=== PATIENT | male | born 1985 | race Caucasian/White ===

== ENCOUNTER 2023-02-08 13:19 | Emergency (ER) | payer BC, SELFPAY ==
[2023-02-08 13:22] VITALS: BP 134/99; PULSE 82; RESP 18; TEMP 36.6; O2SAT 100; BMI 35.8
--- NOTE | 2023-02-08 13:31 | ED_ITS ---
HPI - General Adult General Chief complaint: Eye Problems Stated complaint: LT EYE REDNESS Time Seen by Provider: 02/08/23 13:30 Source: patient Mode of arrival: walk-in History of Present Illness HPI narrative: patient here with a foreign body type sensation in his left eye. Patient states he was fine yesterday he did not work. 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 In either case he was fine yesterday but today when he woke up he feels like there might be a foreign body in his left eye. He does not have any itching he does not have purulent matter debris or discharge. Does not have any blurred vision or loss of vision. Does not have any pain in the eye. Related Data Home Medications Medication Instructions Recorded Confirmed No Known Home Medications 02/08/23 02/08/23 Allergies Allergy/AdvReac Type Severity Reaction Status Date / Time Sulfa (Sulfonamide AdvReac Intermediate Verified 02/08/23 13:22 Antibiotics) bactrim AdvReac Intermediate Uncoded 02/08/23 13:22 Exam Narrative Exam Narrative: awake alert appears in no distress. Overall inspection the eyes shows no scleral icterus or evidence of anemia or pallor. There is no injection of the conjunctiva. Extraocular muscles normal pupillary light response is normal lids and lashes are normal. periorbital tissues in the facial landmarks are otherwise completely normal. Constitutional Vital Signs, click to edit/add: Last Vital Signs Temp 98 F 02/08/23 13:22 Pulse 82 02/08/23 13:22 Resp 18 02/08/23 13:22 BP 134/99 H 02/08/23 13:22 Pulse Ox 100 02/08/23 13:22 O2 Del Method Room Air 02/08/23 13:22 Course Vital Signs Vital signs: Vital Signs Temperature 98 F 02/08/23 13:22 Pulse Rate 82 02/08/23 13:22 Respiratory Rate 18 02/08/23 13:22 Blood Pressure 134/99 H 02/08/23 13:22 Pulse Oximetry 100 02/08/23 13:22 Oxygen Delivery Method Room Air 02/08/23 13:22 Temperature 98 F 09/16/23 13:22 Pulse Rate 82 02/08/23 13:22 Respiratory Rate 18 02/08/23 13:22 Blood Pressure 134/99 H 02/08/23 13:22 Pulse Oximetry 100 02/08/23 13:22 Oxygen Delivery Method Room Air 02/08/23 13:22 Medical Decision Making MDM Narrative Medical decision making narrative: after instillation of tetracaine ophthalmic drops he had complete resolution of his foreign body sensation. The lids were doubly everted and I do not see a foreign body. A slit lamp examination was conducted after floor seen. There is no dye uptake of the cornea. We will irrigate the eye Discharge Plan Discharge Chief Complaint: Eye Problems Clinical Impression: Foreign body in conjunctival sac, left eye, initial encounter Patient Disposition: Home, Self-Care Time of Disposition Decision: 14:48 Prescriptions / Home Meds: No Action No Known Home Medications Additional Instructions: follow-up local supervisor counseling and guidance as needed Stand Alone Forms: Portal Instructions Referrals: JOEY RAWLS [Primary Care Provider] - 1 week
[2023-02-08] MEDS: TETRACAINE HCL 0.5% OP SOL 80 DROP/4 ML BOTTLE OP (13:41)
[2023-02-08] MEDS: FLUORESCEIN SODIUM 1 MG STRIP OP (13:43)
== END 2023-02-08 14:45 | disposition home or self-care (01) ==
PROVIDERS: Emergency Provider Emergency Medicine Emergency Medical Services; PCP Family Medicine
DX: T15.12XA Foreign body in conjunctival sac, left eye, initial encounter (principal)
CPT/HCPCS: 99283

== ENCOUNTER 2023-05-16 16:06 | Outpatient (OUT) | payer BC, SELFPAY ==
--- NOTE | 2023-05-16 | XR_ITS ---
The [address] [address] Patient Name: VILMA MARTINEZ MRN: [id number] date: 1985 Sex: M Assigned Patient Location: RAD Current Patient Location: [facility] Accession/Order Number: [id number] Exam Date: 05/16/2023 16:30 Report Date: 05/16/2023 18:08 At the request of: PANCHO SHER Procedure: XR chest 2V EXAM: Chest x-ray HISTORY: . cough . COMPARISON: None. TECHNIQUE: Total and lateral chest FINDINGS: Heart and vascularity are unremarkable. Lungs are free of focal infiltrates. No acute bony abnormality is appreciated. XR/XR chest 2V IMPRESSION: No acute heart or lung disease identified. Electronically authenticated by: ANABELLA VASQUEZ Date: 05/16/2023 18:08
== END 2023-05-16 16:07 | disposition home or self-care (01) ==
PROVIDERS: PCP Family Medicine; Visit Provider Nurse Practitioner
DX: R05.9 Cough, unspecified (principal); R06.2 Wheezing
CPT/HCPCS: 71046

== ENCOUNTER 2023-08-16 01:17 | Emergency (ER) | payer BC, SELFPAY ==
[2023-08-16 01:20] VITALS: BP 160/90; PULSE 93; RESP 16; TEMP 37; O2SAT 98; BMI 38.0
--- OUTSIDE RECORDS SUMMARY | 2023-08-16 01:23 | XMS_ITS | CCD ---
Author Organization [facility] Care Team Providers Care Data Integration Analyst Name Role Phone MarieNathalia figueroa Unavailable Ginger Gardner Unavailable MARCELLUS, DR REY Primary Care Unavailable MARKER, DR REN Admitting Unavailable MARKER, DR REN Attending Unavailable MARKER, DR REN Consulting Unavailable NILESH DELUCA Consulting Unavailable HOUSE, DR REY Primary Care Unavailable KRANTHI VYAS Admitting Unavailable KRANTHI VYAS Attending Unavailable KRANTHI VYAS Consulting Unavailable HODA DUNHAM Consulting Unavailable CAPRICE ANDERSON Consulting Unavailable Kalyani Gamble Unavailable Radha Lr Attending Unavailable AdelineRadha Attending Unavailable AdelineRadha mcconnell Attending Unavailable AdelineRadha mcconnell Attending Unavailable Allergies Allergy Classification Reported Allergen(s) Allergy Type Date of Onset Reaction(s) Facility (3 sources) Sulfamethoxazole / Trimethoprim Drug Allergy [facility] [employer] Other (2 sources) sulfaSALAzine Drug Allergy [facility] [employer] Other (1 source) Sulfamethoxazole / Trimethoprim Drug Allergy 01-25-20 17 [facility] Repository (1 source) Sulfonamides (Antibiotic) Drug allergy (disorder) 01-25-20 17 [facility] Repository (1 source) Substance with sulfonamide structure and antibacterial mechanism of action (substance) Drug allergy [facility] [employer] Other (1 source) Sulfonamides (Antibiotic); Translations: [sulfa drugs] Propensity to adverse reactions (disorder) [facility] Repository Medications Current Medications Medication Drug Class(es) Dates Sig (Normalized) Sig (Original) [id number] 200 actuat albuterol 0.09 mg/actuat metered dose inhaler (3 sources) beta2-Adrenergic Agonist Start: 04-22-2021 take 2 puff(s) by inhalation every four hours as needed Albuterol Sulfate HFA 108 (90 Base) MCG/ACT 2 puffs as needed Inhalation every 4 hrs Mar, Active Start: 02-24-2021 take 2 puff(s) by in halation four times daily as needed Albuterol Sulfate HFA 108 (90 Base) MCG/ACT 2 puffs Inhalation qid prn Feb, Not-Taking dextromethorphan hydrobromide 15 mg / guaiFENesin 400 mg / pseudoephedrine hydrochloride 60 mg oral tablet (1 source) alpha-Adrenergic Agonist, Uncompetitive K-httsjp-J-aspartate Receptor Antagonist, Sigma-1 Agonist Start: 04-22-2021 take 1 tablet by mouth every four hours Capmist DM 60-15-400 MG 1 tablet as needed Orally every 4 hours for 10 days Mar, Active Completed/Discontinued Medications Medication Drug Class(es) Dates Sig (Normalized) Sig (Original) predniSONE 20 mg oral tablet (2 sources) Start: 02-24-2021 take 1 tablet by mouth every twelve hours predniSONE 20 MG 1 tablet Orally bid for 5 day(s) Feb, Not-Taking Problems Active Problems Problem Classification Problem Date Documented Da te Episodic/Chronic Anxiety disorders (3 sources) Generalized anxiety disorder; Translations: [Generalized anxiety disorder] Chronic Other non-traumatic joint disorders (4 sources) Pain in left ankle and joints of left foot; Translations: [PAIN IN LEFT ANKLE] Onset: 03-26-2022 Episodic Other upper respiratory infections (3 sources) Acute pharyngitis, unspecified; Translations: [Acute upper respiratory infection, unspecified] Onset: 02-24-2021 Resolved: 02-24-2021 Episodic Substance-related disorders (1 source) Nicotine dependence, cigarettes, uncomplicated; Translations: [NICOTINE DEPEND CIGARETTES UNCOMP] Onset: 03-27-2022 Chronic Syncope (4 sources) Syncope and collapse; Translations: [SYNCOPE AND COLLAPSE] Onset: 06-01-2022 Episodic Past or Other Problems Problem Classification Problem Date Documented Da te Episodic/Chronic Chronic obstructive pulmonary disease and bronchiectasis (1 source) Bronchitis, not specified as acute or chronic; Translations: [Bronchitis J40] Onset: 02-24-2021 Resolved: 02-24-2021 Episodic Immunizations and screening for infectious disease (2 sources) Contact with and (suspected) exposure to other viral communicable diseases; Translations: [Contact with and (suspected) exposure to other viral communicable diseases Z20.828] Onset: 02-24-2021 Resolved: 04-22-2021 Episodic Viral infection (1 source) COVID-19 Onset: 04-22-2021 Resolved: 04-22-2021 Results Test Name Value Interpretation Reference Range Facility Ambulatory Visit Summaryon 0 06-02-2023 Ambulatory Visit Summary AV MARTINEZ :1985 Visit Date:06/02/2023 Ambulatory Visit Instructions Your Diagnosis BMI 38.0-38.9,adult Non-smoker Your Care Team Attending Physician - Radha Umaña Primary Care Physician - Radha Umaña Discharge Vitals Temperature (Tympanic) 37.0 ?C Heart Rate (Peripheral) 84 Respiratory Rate 18 Blood Pressure 132/78 Height 170 cm Height 67 in Weight 112.0 kg Weight 246.4 lb BMI 38.75 Allergies sulfa drugs (Hives) Problems Ongoing - Any problem that you are currently receiving treatment for. Bronchitis Cough Nasal congestion Well adult exam Wheezing on expiration Patient Survey You may receive a survey via text or e-mail asking about your office visit. Please share your experience with us by completing your survey. We appreciate your feedback and thank you for choosing us for your care. Normal [facility] Family Medicine Office/Clini c Noteon 06-02-2023 Family Medicine Office/Clinic Note HPI Staff Av is a 38 year old male presenting for acute sick visit NAHUM: 05/16/23 pt states he didn't complete his last few doses of antibiotics forgot about medicine. States he didn't really notice a difference. Respiratory C/O: Onset: Ongoing over a month Body aches: no Chest congestion: yes Chills: no Cough: yes Sputum production: yes morning green/clear Sore throat: Ear complaints: no Eye itching/watering: no Fever: no had one yesterday morning Headache: no Nasal congestion: yes Nasal discharge: yes Poor appetite: no Reduced activity: no Sinus pain/pressure: no Sneezing: yes Wheezing: no Ill contacts: no Remedies tried: Thera-flu, Tylenol Questions/Concerns: History of Present Illness pt presents with cough, chills, fever, body aches Review of Systems PHQ Score Initial Depression Screen Score: 0 SCORE ROS - Provider Constitutional: no fever, no chills, no sweats, no fatigue Respiratory: no shortness of breath, no cough, no orthopnea, no wheezing. Cardiovascular: no chest pain, no palpitations, no edema. Neurologic: no headache, no dizziness, no numbness, no weakness. Physical Exam Vitals & Measurements T: 37.0 ?C(Tympanic) HR: 84(Peripheral) RR: 18 BP: 132/78 SpO2: 94% HT: 67 in HT: 170 cm WT: 112.0 kg WT: 246.4 lb BMI: 38.75 General: alert, no acute distress ENMT: oral mucosa moist, no pharyngeal erythema or exudate Cardiovascular: regular rate and rhythm, normal peripheral perfusion Respiratory: Lungs CTA, respirations non labored Extremities: no deformity, no trauma Neurological: oriented x 4, LOC appropriate for age, CN II-XII intact, motor strength equal & normal bilaterally, speech normal Assessment/Plan 1. Bronchitis (J40: Bronchitis, not specified as acute or chronic) cough, congestion, body aches. will send z pack and medrol dose pack 2. Cough (R05.9: Cough, unspecified) will send albuterol inhaler Ordered: fluticasone, = 2 puff(s), Inhalation, BID, # 12 gram, Refills(s) 0, Pharmacy: [id number], 170.5, cm, 05/16/23 14:37:00 EST, Height/Length Dosing, 113.2, kg, 05/16/23 14:37:00 EST, Weight Dosing 3. BMI 38.0-38.9,adult (Z68.38: Body mass index [BMI] 38.0-38.9, adult) BMI education complete Ordered: albuterol, 2 puff(s), Inhalation, q6hr, 8.5 gm, Refill(s) 0, [id number], 170, cm, 06/02/23 14:44:00 EST, Height/Length Dosing, 112, kg, 06/02/23 14:44:00 EST, Weight Dosing azithromycin, = 1 packet(s), Oral, As Directed, as directed on package labeling, X 5 day(s), # 6 tab(s), Refills(s) 0, [id number] 170, cm, 06/02/23 14:44:00 EST, Height/Length Dosing, 112, kg, 06/02/23 14:44:00 EST, Weight Dosing methylPREDNISolone, = 1 packet(s), Oral, As Directed, as directed on package labeling, X 6 day(s), # 21 tab(s), Refills(s) 0, [id number], 170, cm, 06/02/23 14:44:00 EST, Height/Length Dosing, 112, kg, 06/02/23 14:44:00 EST, Weight Dosing 4. Non-smoker (Z78.9: Other specified health status) continue not smoking Ordered: albuterol, 2 puff(s), Inhalation, q6hr, 8.5 gm, Refill(s) 0, [id number] 170, cm, 06/02/23 14:44:00 EST, Height/Length Dosing, 112, kg, 06/02/23 14:44:00 EST, Weight Dosing azithromycin, = 1 packet(s), Oral, As Directed, as directed on package labeling, X 5 day(s), # 6 tab(s), Refills(s) 0, [id number], 170, cm, 06/02/23 14:44:00 EST, Height/Length Dosing, 112, kg, 06/02/23 14:44:00 EST, Weight Dosing fluticasone, = 2 puff(s), Inhalation, BID, # 12 gram, Refills(s) 0, [id number], 170.5, cm, 05/16/23 14:37:00 EST, Height/Length Dosing, 113.2, kg, 05/16/23 14:37:00 EST, Weight Dosing methylPREDNISolone, = 1 packet(s), Oral, As Directed, as directed on package labeling, X 6 day(s), # 21 tab(s), Refills(s) 0, [id number], 170, cm, 06/02/23 14:44:00 EST, Height/Length Dosing, 112, kg, 06/02/23 14:44:00 EST, Weight Dosing Follow-up No qualifying data available Problem List/Past Medical History Ongoing Bronchitis Cough Nasal congestion Well adult exam Wheezing on expiration Historical No qualifying data Medications Albuterol (Eqv-ProAir HFA) 90 mcg/inh inhalation aerosol, 2 puff(s), Inhalation, q6hr azithromycin 250 mg Tab, 1 packet(s), Oral, As Directed Medrol 4 mg Tab, 1 packet(s), Oral, As Directed Allergies sulfa drugs (Hives) Social History Alcohol - No Risk, 11/25/2022 Others hurt by drinking: No., 11/25/2022 Tobacco - Medium Risk, 11/25/2022 Chew 1/2 can Tobacco Use:. Ready to change: No. Household tobacco concerns: No., 06/02/2023 Family History Cancer: Grandparent. Diabetes mellitus type 2: Mother. Hypertension: Mother and Grandparent. Hyperthyroidism: Grandparent. Immunizations Vaccine Date Status influenza virus vaccine, inactivated 04/12/2013 Recorded hepatitis B pediatric vaccine 08/02/2002 Recorded poliovirus vaccine, inactivated 04/30/2002 Recorded DTaP, unspecified f (more content not included)... [facility] Comment on above: Result Comment: Elec tronically Signed By: Radha Umaña\.br\Date and Time Signed: 06/02/23 15:20 EST Consenton 05-20-2023 Consent [id number] 0TIFF [facility] Physician Orderon 05-20-2023 Physician Order [id number] 0TIFF [facility] RAD - MISCon 05-20-2023 RAD - MISC [id number] 20 [id number]#[id number] 0TIFF [facility] Ambulatory Visit Summaryon 1 07-17-2022 Ambulatory Visit Summary AV MARTINEZ :1985 Visit Date:05/16/2023 Ambulatory Visit Instructions Your Diagnosis Cough Wheezing on expiration BMI 39.0-39.9,adult Non-smoker Your Care Team Attending Physician - Radha Umaña Primary Care Physician - Radha Umaña Discharge Vitals Temperature (Tympanic) 37.2 ?C Heart Rate (Peripheral) 70 Respiratory Rate 18 Blood Pressure 136/84 Height 170.5 cm Height 67 in Weight 113.2 kg Weight 249.04 lb BMI 38.94 Allergies sulfa drugs (Hives) Problems Ongoing - Any problem that you are currently receiving treatment for. Bronchitis Cough Nasal congestion Well adult exam Wheezing on expiration Patient Survey You may receive a survey via text or e-mail asking about your office visit. Please share your experience with us by completing your survey. We appreciate your feedback and thank you for choosing us for your care. Normal [facility] Family Medicine Office/Clini c Noteon 05-16-2023 Family Medicine Office/Clinic Note HPI Staff Av is a 38 year old male presenting for acute sick visit NAHUM 05/06/23 Bronchitis started on Azithromycin, benzonatate, methylprednisolone Pt states while taking medication from 05/06/23 it aggravated cough and began coughing all the time. Cough with intermittent productive cough. Denies any ear/sinus pressure has minimal sinus congestion . no fevers Feels he does still have a little wheezing History of Present Illness pt presents with continued cough and wheezing after finishing zpack and medrol dose pack Review of Systems PHQ Score Initial Depression Screen Score: 0 SCORE ROS - Provider Constitutional: no fever, no chills, no sweats, no fatigue Respiratory: no shortness of breath, no cough, no orthopnea, no wheezing. Cardiovascular: no chest pain, no palpitations, no edema. Neurologic: no headache, no dizziness, no numbness, no weakness. Physical Exam Vitals & Measurements T: 37.2 ?C(Tympanic) HR: 70(Peripheral) RR: 18 BP: 136/84 SpO2: 99% HT: 67 in HT: 170.5 cm WT: 113.2 kg WT: 249.04 lb BMI: 38.94 General: alert, no acute distress ENMT: oral mucosa moist, no pharyngeal erythema or exudate Cardiovascular: regular rate and rhythm, normal peripheral perfusion Respiratory: Lungs CTA, respirations non labored Extremities: no deformity, no trauma Neurological: oriented x 4, LOC appropriate for age, CN II-XII intact, motor strength equal & normal bilaterally, speech normal Assessment/Plan 1. Cough (R05.9: Cough, unspecified) pt continues to have severe cough after last treatment. will order kenalog injection, inhaler and levofloxacin. chest xray order provided. to be done at [facility]. all questions answered. RTC as needed Ordered: fluticasone, = 2 puff(s), Inhalation, BID, # 12 gram, Refills(s) 0, [id number] 170.5, cm, 05/16/23 14:37:00 EST, Height/Length Dosing, 113.2, kg, 05/16/23 14:37:00 EST, Weight Dosing levofloxacin, 500 mg = 1 tab(s), Oral, q24hr, X 7 day(s), # 7 tab(s), Refills(s) 0, [id number], 170.5, cm, 05/16/23 14:37:00 EST, Height/Length Dosing, 113.2, kg, 05/16/23 14:37:00 EST, Weight Dosing triamcinolone, 60 mg = 1.5 mL, Injection, IntraMuscular, Once, Stop date 05/16/23 14:52:00 EST, Routine, Start date 05/16/23 14:52:00 EST, 05/16/23 14:52:00 EST 2. Wheezing on expiration (R06.2: Wheezing) continues to have wheezing on expiration after z ilene and medrol dose pack. will order chest xray inhaler and levofloaxacin. Ordered: fluticasone, = 2 puff(s), Inhalation, BID, # 12 gram, Refills(s) 0, [id number], 170.5, cm, 05/16/23 14:37:00 EST, Height/Length Dosing, 113.2, kg, 05/16/23 14:37:00 EST, Weight Dosing levofloxacin, 500 mg = 1 tab(s), Oral, q24hr, X 7 day(s), # 7 tab(s), Refills(s) 0, [id number], 170.5, cm, 05/16/23 14:37:00 EST, Height/Length Dosing, 113.2, kg, 05/16/23 14:37:00 EST, Weight Dosing triamcinolone, 60 mg = 1.5 mL, Injection, IntraMuscular, Once, Stop date 05/16/23 14:52:00 EST, Routine, Start date 05/16/23 14:52:00 EST, 05/16/23 14:52:00 EST 3. BMI 39.0-39.9,adult (Z68.39: Body mass index [BMI] 39.0-39.9, adult) BMI education complete Ordered: fluticasone, = 2 puff(s), Inhalation, BID, # 12 gram, Refills(s) 0, [id number], 170.5, cm, 05/16/23 14:37:00 EST, Height/Length Dosing, 113.2, kg, 05/16/23 14:37:00 EST, Weight Dosing levofloxacin, 500 mg = 1 tab(s), Oral, q24hr, X 7 day(s), # 7 tab(s), Refills(s) 0, [id number], 170.5, cm, 05/16/23 14:37:00 EST, Height/Length Dosing, 113.2, kg, 05/16/23 14:37:00 EST, Weight Dosing triamcinolone, 60 mg = 1.5 mL, Injection, IntraMuscular, Once, Stop date 05/16/23 14:52:00 EST, Routine, Start date 05/16/23 14:52:00 EST, 05/16/23 14:52:00 EST 4. Non-smoker (Z78.9: Other specified health status) continue not smoking Ordered: fluticasone, = 2 puff(s), Inhalation, BID, # 12 gram, Refills(s) 0, [id number], 170.5, cm, 05/16/23 14:37:00 EST, Height/Length Dosing, 113.2, kg, 05/16/23 14:37:00 EST, Weight Dosing levofloxacin, 500 mg = 1 tab(s), Oral, q24hr, X 7 day(s), # 7 tab(s), Refills(s) 0, [id number], 170.5, cm, 05/16/23 14:37:00 EST, Height/Length Dosing, 113.2, kg, 05/16/23 14:37:00 EST, Weight Dosing triamcinolone, 60 mg = 1.5 mL, Injection, IntraMuscular, Once, Stop date 05/16/23 14:52:00 EST, Routine, Start date 05/16/23 14:52:00 EST, 05/16/23 14:52:00 EST Follow-up No qualifying data available Problem List/Past Medical History Ongoing Bronchitis Cough Nasal congestion Well adult exam Wheezing on expiration Historical No qualifying data Medications Flovent HFA 110 Aerosol, 2 puff(s), Inhalation, BID levofloxacin 500 mg Tab, 500 mg= 1 tab(s), Oral, q24hr triamcinolone acetonide 40 mg/mL Inj Susp, 60 mg= 1.5 mL, IntraMuscular, Once Allergies sulfa drugs (Hives) Social History Alcohol - No Risk, 11/25/2022 Others hurt by drinking: No., 11/25/2022 Tob (more content not included)... [facility] Comment on above: Result Comment: Elec tronically Signed By: Radha Umaña\.br\Date and Time Signed: 05/16/23 14:55 EST Ambulatory Visit Summaryon 1 07-07-2022 Ambulatory Visit Summary AV MARTINEZ James :1985 Visit Date:05/06/2023 Ambulatory Visit Instructions Your Diagnosis Wheezing on expiration Your Care Team Attending Physician - Radha Umaña Primary Care Physician - Radha Umaña Discharge Vitals Temperature (Tympanic) 37.1 ?C Heart Rate (Peripheral) 98 Respiratory Rate 18 Blood Pressure 128/88 Height 170.5 cm Height 67 in Weight 115.9 kg Weight 254.98 lb BMI 39.87 Allergies sulfa drugs (Hives) Problems Ongoing - Any problem that you are currently receiving treatment for. Well adult exam Wheezing on expiration Patient Survey You may receive a survey via text or e-mail asking about your office visit. Please share your experience with us by completing your survey. We appreciate your feedback and thank you for choosing us for your care. Daniel Orellana [facility] Medicine Office/Clini c Noteon 05-06-2023 Family Medicine Office/Clinic Note HPI Staff Av is a 38 year old male presenting for acute sick visit Respiratory C/O: Onset: 1.5 week ago Body aches: no Chest congestion: no Chills: no Cough: yes Sputum production: yes clear/white Sore throat: yes Ear complaints: no Eye itching/watering: no Fever: no Headache: no Nasal congestion: no Nasal discharge: yes clear Poor appetite: no Reduced activity: no Sinus pain/pressure: no Sneezing: no Wheezing: no Ill contacts: yes Remedies tried: Tylenol cold and flu , Mucinex Questions/Concerns: woke up with sore throat at first then progressed into sinus pressure/pain nasal congestion and nasal discharge, cough. Pt states now all his sinus symptoms have improved just continues with a cough History of Present Illness pt presents today with cough congestion nasal draniage Review of Systems PHQ Score Initial Depression Screen Score: 0 SCORE ROS - Provider Constitutional: no fever, no chills, no sweats, no fatigue Respiratory: no shortness of breath, yes cough, no orthopnea, yes wheezing. Cardiovascular: no chest pain, no palpitations, no edema. Neurologic: no headache, no dizziness, no numbness, no weakness. Physical Exam Vitals & Measurements T: 37.1 ?C(Tympanic) HR: 98(Peripheral) RR: 18 BP: 128/88 SpO2: 96% HT: 67 in HT: 170.5 cm WT: 115.9 kg WT: 254.98 lb BMI: 39.87 General: alert, no acute distress ENMT: oral mucosa moist, no pharyngeal erythema or exudate Cardiovascular: regular rate and rhythm, normal peripheral perfusion Respiratory: Lungs expiratory wheezes, respirations non labored Extremities: no deformity, no trauma Neurological: oriented x 4, LOC appropriate for age, CN II-XII intact, motor strength equal & normal bilaterally, speech normal Assessment/Plan 1. Wheezing on expiration (R06.2: Wheezing) pt presents today with cough, congestion, nasal drainage, post nasal drainage causing coughing. will send z ilene, medrol dose pack and tessalon pearls. all questions answered. RTC as needed Ordered: azithromycin, = 1 packet(s), Oral, As Directed, as directed on package labeling, X 5 day(s), # 6 tab(s), Refills(s) 0, [id number], 170.5, cm, 05/06/23 8:49:00 EST, Height/Length Dosing, 115.9, kg, 05/06/23 8:49:00 EST, Weight Dosing benzonatate, 200 mg = 1 cap(s), Oral, TID, X 7 day(s), # 21 cap(s), Refills(s) 0, [id number], 170.5, cm, 05/06/23 8:49:00 EST, Height/Length Dosing, 115.9, kg, 05/06/23 8:49:00 EST, Weight Dosing methylPREDNISolone, = 1 packet(s), Oral, As Directed, as directed on package labeling, X 6 day(s), # 21 tab(s), Refills(s) 0, [id number], 170.5, cm, 05/06/23 8:49:00 EST, Height/Length Dosing, 115.9, kg, 05/06/23 8:49:00 EST, Weight Dosing 2. Cough (R05.9: Cough, unspecified) medrol dose pack and tessalon pearls sent Ordered: azithromycin, = 1 packet(s), Oral, As Directed, as directed on package labeling, X 5 day(s), # 6 tab(s), Refills(s) 0, [id number], 170.5, cm, 05/06/23 8:49:00 EST, Height/Length Dosing, 115.9, kg, 05/06/23 8:49:00 EST, Weight Dosing benzonatate, 200 mg = 1 cap(s), Oral, TID, X 7 day(s), # 21 cap(s), Refills(s) 0, [id number], 170.5, cm, 05/06/23 8:49:00 EST, Height/Length Dosing, 115.9, kg, 05/06/23 8:49:00 EST, Weight Dosing methylPREDNISolone, = 1 packet(s), Oral, As Directed, as directed on package labeling, X 6 day(s), # 21 tab(s), Refills(s) 0, [id number], 170.5, cm, 05/06/23 8:49:00 EST, Height/Length Dosing, 115.9, kg, 05/06/23 8:49:00 EST, Weight Dosing 3. Nasal congestion (R09.81: Nasal congestion) see above Ordered: azithromycin, = 1 packet(s), Oral, As Directed, as directed on package labeling, X 5 day(s), # 6 tab(s), Refills(s) 0, [id number], 170.5, cm, 05/06/23 8:49:00 EST, Height/Length Dosing, 115.9, kg, 05/06/23 8:49:00 EST, Weight Dosing benzonatate, 200 mg = 1 cap(s), Oral, TID, X 7 day(s), # 21 cap(s), Refills(s) 0, [id number], 170.5, cm, 05/06/23 8:49:00 EST, Height/Length Dosing, 115.9, kg, 05/06/23 8:49:00 EST, Weight Dosing methylPREDNISolone, = 1 packet(s), Oral, As Directed, as directed on package labeling, X 6 day(s), # 21 tab(s), Refills(s) 0, [id number], 170.5, cm, 05/06/23 8:49:00 EST, Height/Length Dosing, 115.9, kg, 05/06/23 8:49:00 EST, Weight Dosing 4. Bronchitis (J40: Bronchitis, not specified as acute or chronic) see above Ordered: azithromycin, = 1 packet(s), Oral, As Directed, as directed on package labeling, X 5 day(s), # 6 tab(s), Refills(s) 0, Pharmacy: [facility] #[id number], 170.5, cm, 05/06/23 8:49:00 EST, Height/Length Dosing, 115.9, kg, 05/06/23 8:49:00 EST, Weight Dosing benzonatate, 200 mg = 1 cap(s), Oral, TID, X 7 day(s), # 21 cap(s), Refills(s) 0, Pharmacy: [id number], 170.5, cm, 05/06/23 8:49:00 EST, Height/Length Dosing, 115.9, kg, 05/06/23 8:49:00 EST, Weight Dosing methylPREDNISolone, = 1 packet(s), Oral, (more content not included)... [facility] Comment on above: Result Comment: Elec tronically Signed By: Radha Umaña\.br\Date and Time Signed: 05/06/23 08:59 EST Ambulatory Visit Summaryon 0 11-25-2022 Ambulatory Visit Summary AV MARTINEZ :1985 Visit Date:11/25/2022 Ambulatory Visit Instructions Your Diagnosis Well adult exam BMI 37.0-37.9, adult Chews tobacco Your Care Team Attending Physician - Radha Umaña Primary Care Physician - Radha Umaña Discharge Vitals Temperature (Oral) 36.9 ?C Heart Rate (Peripheral) 74 Respiratory Rate 18 Blood Pressure 128/88 Height 170.5 cm Height 67 in Weight 109.9 kg Weight 241.78 lb BMI 37.8 Allergies sulfa drugs (Hives) Problems Ongoing - Any problem that you are currently receiving treatment for. Well adult exam [facility] Family Medicine Office/Clini c Noteon 11-25-2022 Family Medicine Office/Clinic Note Chief Complaint Pt here to establish care HPI Staff Av is a 37 year old male presenting to establish care Establish Care: History: Any previous diagnosis: Anxiety(situational) History of seeing any specialist: no When was your last doctors visit: 05/2022 Last provider: Dr meehan Any recent labs: within last year to two, [facility] Health Maintenance UTD: Colonoscopy: no PSA:no Acute: Current issues/complaints: none History of Present Illness pt presents today to establish care Review of Systems PHQ Score Initial Depression Screen Score: 0 ROS - Provider Constitutional: no fever, no chills, no sweats, no fatigue Respiratory: no shortness of breath, no cough, no orthopnea, no wheezing. Cardiovascular: no chest pain, no palpitations, no edema. Neurologic: no headache, no dizziness, no numbness, no weakness. Physical Exam Vitals & Measurements T: 36.9 ?C(Oral) HR: 74(Peripheral) RR: 18 BP: 128/88 SpO2: 97% HT: 67 in HT: 170.5 cm WT: 109.9 kg WT: 241.78 lb BMI: 37.8 General: alert, no acute distress ENMT: oral mucosa moist, no pharyngeal erythema or exudate Cardiovascular: regular rate and rhythm, normal peripheral perfusion Respiratory: Lungs CTA, respirations non labored Extremities: no deformity, no trauma Neurological: oriented x 4, LOC appropriate for age, CN II-XII intact, motor strength equal & normal bilaterally, speech normal Assessment/Plan 1. Well adult exam (Z00.00: Encounter for general adult medical examination without abnormal findings) pt presents today for wellness visit and to establish care. pt denies needs at this time. all questions answered. RTC as needed 2. BMI 37.0-37.9, adult (Z68.37: Body mass index [BMI] 37.0-37.9, adult) BMI education complete 3. Chews tobacco (Z72.0: Tobacco use) consider not chewing tobacco Follow-up No qualifying data available Problem List/Past Medical History Ongoing Well adult exam Historical No qualifying data Medications No active medications Allergies sulfa drugs (Hives) Social History Alcohol - No Risk, 11/25/2022 Others hurt by drinking: No., 11/25/2022 Tobacco - Medium Risk, 11/25/2022 Chew 1/2 can Tobacco Use:. Ready to change: No. Household tobacco concerns: No., 11/25/2022 Family History Cancer: Grandparent. Diabetes mellitus type 2: Mother. Hypertension: Mother and Grandparent. Hyperthyroidism: Grandparent. Immunizations Vaccine Date Status influenza virus vaccine, inactivated 04/12/2013 Recorded hepatitis B pediatric vaccine 08/02/2002 Recorded poliovirus vaccine, inactivated 04/30/2002 Recorded DTaP, unspecified formulation 04/30/2002 Recorded Td(adult) unspecified formulation 01/08/2002 Recorded hepatitis B pediatric vaccine 01/08/2002 Recorded measles/mumps/rubella virus vaccine 06/12/1995 Recorded Normal [facility] Comment on above: Result Comment: Elec tronically Signed By: Radha Umaña\Date and Time Signed: 11/25/22 09:13 EDT [employer] 11-25-2022 Forms [id number] 0CD:[id number] Normal [facility] CBC AUTO DIFFon 06-01-2022 BASO # 0.0 103/ul Normal 0.0-0.1 [facility] Comment on above: Performed By: #### C BC #### [facility] [address] [address] [address] More Restrepo Basophils/100 WBC (Bld) 0.6 % Normal 0.2-2.0 [facility] Comment on above: Performed By: #### C BC #### [facility] [address] [place] [address] Dr. More Restrepo EO # 0.1 103/ul Normal 0.0-0.7 [facility] Comment on above: Performed By: #### C BC #### [facility] [address] [address] [address] More Resrtepo Eosinophils/100 WBC (Bld) 1.3 % Normal 0.9-7.0 [facility] Comment on above: Performed By: #### C BC #### [facility] [address] [place] [address] Dr. More Restrepo Erythrocyte distribution width (RBC) [Ratio] 11.9 % Normal 11.0-15.0 [facility] Comment on above: Performed By: #### C BC #### [facility] [address] [place] [address] Dr. More Restrepo Hematocrit (Bld) [Volume fraction] 40.3 % Critically low 42.0-54.0 [facility] Comment on above: Performed By: #### C BC #### [facility] [address] [place] [address] Dr. More Restrepo Hemoglobin (Bld) [Mass/Vol] 13.8 g/dL Critically low 14.0-18.0 [facility] Comment on above: Performed By: #### C BC #### [facility] [address] [address] [address] More Restrepo IG # 0.05 10e3/ul Critically high 0.00-0.03 [facility] Comment on above: Performed By: #### C BC #### [facility] [address] [place] [address] Dr. More Restrepo IG % 0.7 % Critically high 0.0-0.5 [facility] Comment on above: Performed By: #### C BC #### [facility] [address] [place] [address] Dr. More Restrepo LYMPH # 3.4 103/ul Normal 1.2-3.8 [facility] Comment on above: Performed By: #### C BC #### [facility] [address] [place] [address] Dr. More Restrepo Lymphocytes/100 WBC (Bld) 47.4 % Normal 20.5-60.0 [facility] Comment on above: Performed By: #### C BC #### [facility] [address] [place] [address] Dr. Mroe Restrepo MANUAL DIFF REQ NO Normal [facility] Comment on above: Performed By: #### C BC #### [facility] [address] [place] [address] Dr. More Restrepo MCH (RBC) [Entitic mass] 30.0 pg Normal 25.9-34.0 [facility] Comment on above: Performed By: #### C BC #### [facility] [address] [place] [address] Dr. More Restrepo MCHC (RBC) [Mass/Vol] 34.2 g/dL Normal 29.9-35.2 [facility] Comment on above: Performed By: #### C BC #### [facility] [address] [place] [address] Dr. More Restrepo MCV (RBC) [Entitic vol] 87.6 fL Normal 80.0-94.0 [facility] Comment on above: Performed By: #### C BC #### [facility] [address] [place] [address] Dr. More Restrepo MONO # 0.7 103/ul Normal 0.3-0.8 [facility] Comment on above: Performed By: #### C BC #### [facility] [address] [address] [address] More Restrepo Monocytes/100 WBC (Bld) 9.7 % Normal 1.7-12.0 [facility] Comment on above: Performed By: #### C BC #### [facility] [address] [address] [address] More Restrepo NEUT # 2.9 103/ul Normal 1.4-6.5 [facility] Comment on above: Performed By: #### C BC #### [facility] [address] [place] [address] Dr. More Restrepo Neutrophils/100 WBC (Bld) 40.3 % Critically low 43.0-75.0 [facility] Comment on above: Performed By: #### C BC #### [facility] [address] [place] [address] Dr. More Restrepo Platelet mean volume (Bld) [Entitic vol] 10.1 fL Normal 9.5-13.5 [facility] Comment on above: Performed By: #### C BC #### [facility] [address] [place] [address] Dr. More Restrepo PLT 301 103/ul Normal 150-450 [facility] Comment on above: Performed By: #### C BC #### [facility] [address] [address] [address] More Restrepo RBC 4.60 106/ul Critically low 4.70-6.10 [facility] Comment on above: Performed By: #### C BC #### [facility] [address] [place] [address] Dr. More Restrepo WBC 7.1 103/ul Normal 4.0-11.0 [facility] Comment on above: Performed By: #### C BC #### [facility] [address] [place] [address] HEAD WO CONon 06-01-2022 CT HEAD WO CON CT BRAIN WITHOUT CONTRAST HISTORY: Near syncope. COMPARISON: None. TECHNIQUE: CT examination of the head without IV contrast was performed. Dose reduction techniques were achieved by using automated exposure control and/or adjustment of mA and/or kV according to patient size and/or use of iterative reconstruction technique. FINDINGS: The brain parenchyma is of normal attenuation. The ventricular and cisternal spaces are within normal limits for the patient's age. There is no evidence for intracranial hemorrhage, mass effect, or hydrocephalus. No extraaxial collection or midline shift is identified. The visualized portions of the orbits and sinuses are intact. IMPRESSION: Normal CT of the brain. Electronically authenticated by: HODA DUNHAM Date: 2022-06-01 08:16 Normal [facility] D-DIMERon 06-01-2022 D-DIMER 0.29 mg/L FEU Normal <=0.59 [facility] Comment on above: Performed By: #### D DIM #### [facility] [address] [place] [address] Dr. More Restrepo D-DIMER COMMENTS SEE BELOW Normal [facility] Comment on above: Result Comment: Incr eases in D-Dimer concentration observed with thromboembolic events can be variable due to localization, size, and age of the thrombus. Therefore, a thromboembolic event cannot be diagnosed with certainty on the basis of the reference range. D-Dimers may also be elevated for a variety of disorders including: advanced age, , coronary disease, cancer, liver disease, infection, inflammation, hematoma, DIC, trauma, post-surgery, diabetes, thrombolytic or anticoagulant therapy, stress, and generalized hospitalization. Performed By: #### D DIM #### [facility] [address] [place] [address] Dr. More Restrepo PROF CHEM 8 (BAS METB)on Anion gap [Moles/Vol] 18.3 mmol/L Normal [facility] Comment on above: Performed By: #### C RP, BMP #### [facility] [address] [place] [address] Dr. More Restrepo Calcium [Mass/Vol] 8.6 mg/dL Normal 8.5-10.1 [facility] Comment on above: Performed By: #### C RP, BMP #### [facility] [address] [address] [address] More Restrepo Chloride [Moles/Vol] 101 mmol/L Normal 98-107 [facility] Comment on above: Performed By: #### C RP, BMP #### [facility] [address] [address] [address] More Restrepo CO2 [Moles/Vol] 24.0 mmol/L Normal 21.0-32.0 [facility] Comment on above: Performed By: #### C RP, BMP #### [facility] [address] [address] [address] More Restrepo Creatinine [Mass/Vol] 1.11 mg/dL Normal 0.70-1.30 [facility] Comment on above: Performed By: #### C RP, BMP #### [facility] [address] [place] [address] Dr. More Restrepo EGFR-AF FILIPINO >60 Normal >=60 [facility] Comment on above: Performed By: #### C RP, BMP #### [facility] [address] [place] [address] Dr. More Restrepo EGFR-NON AF FILIPINO >60 Normal >=60 [facility] Comment on above: Performed By: #### C RP, BMP #### [facility] [address] [place] [address] Dr. More Restrepo Glucose [Mass/Vol] 153 mg/dL Critically high 74-106 [facility] Comment on above: Performed By: #### C RP, BMP #### [facility] [address] [place] [address] Dr. More Restrepo Potassium [Moles/Vol] 3.3 mmol/L Critically low 3.5-5.1 [facility] Comment on above: Performed By: #### C RP, BMP #### [facility] [address] [address] [address] More Restrepo Sodium [Moles/Vol] 140 mmol/L Normal 136-145 [facility] Comment on above: Performed By: #### C RP, BMP #### [facility] [address] [address] [address] More Restrepo Urea nitrogen [Mass/Vol] 16.0 mg/dL Normal 7.0-18.0 [facility] Comment on above: Performed By: #### C RP, BMP #### [facility] [address] [place] [address] Dr. More Restrepo Urea nitrogen/Creatinin e [Mass ratio] 14.4 mg/mg Normal [facility] Comment on above: Performed By: #### C RP, BMP #### [facility] [address] [place] [address] Dr. More Restrepo TROPONIN, HIGH SENSITIVITYon 06-01-2022 HSTROP 5.9 pg/mL Normal 4.0-76.1 [facility] Comment on above: Result Comment: CUT- OFF POINTS HAVE BEEN ESTABLISHED BASED ON THE FOURTH UNIVERSAL DEFINITIONS OF MYOCARDIAL INFARCTION. THE UPPER REFERENCE LIMIT (URL) OF TROPONIN, DEFINED THE 99TH PERCENTILE OF cTnI DISTRIBUTION IN A REFERENCE POPULATION, HAS BEEN CONFIRMED THE DECISION THRESHOLD FOR MT DIAGNOSIS. Performed By: #### C RP, BMP #### [facility] [address] [place] [address] Dr. More Restrepo XR CHEST 1 Von 06-01-2022 XR CHEST 1 V CHEST X-RAY, 1 VIEW HISTORY: Near syncope. COMPARISON: None. FINDINGS: The heart, kim, and mediastinum are unremarkable. The lungs are grossly clear. There are no pleural effusions. There is no pneumothorax. IMPRESSION: No evidence of acute cardiopulmonary disease. Electronically authenticated by: HODA DUNHAM Date: 2022-06-01 08:15 Normal [facility] CBC AUTO DIFFon 03-26-2022 BASO # 0.0 103/ul Normal 0.0-0.1 [facility] Comment on above: Performed By: #### C BC #### [facility] [address] [place] [address] Dr. More Restrepo Basophils/100 WBC (Bld) 0.3 % Normal 0.2-2.0 [facility] Comment on above: Performed By: #### C BC #### [facility] [address] [place] [address] Dr. More Restrepo EO # 0.1 103/ul Normal 0.0-0.7 [facility] Comment on above: Performed By: #### C BC #### [facility] [address] [address] [address] More Restrepo Eosinophils/100 WBC (Bld) 1.4 % Normal 0.9-7.0 [facility] Comment on above: Performed By: #### C BC #### [facility] [address] [address] [address] More Restrepo Erythrocyte distribution width (RBC) [Ratio] 11.7 % Normal 11.0-15.0 [facility] Comment on above: Performed By: #### C BC #### [facility] [address] [place] [address] Dr. More Restrepo Hematocrit (Bld) [Volume fraction] 42.6 % Normal 42.0-54.0 [facility] Comment on above: Performed By: #### C BC #### [facility] [address] [place] [address] Dr. More Restrepo Hemoglobin (Bld) [Mass/Vol] 14.3 g/dL Normal 14.0-18.0 [facility] Comment on above: Performed By: #### C BC #### [facility] [address] [place] [address] Dr. More Restrepo IG # 0.05 10e3/ul Critically high 0.00-0.03 [facility] Comment on above: Performed By: #### C BC #### [facility] [address] [place] [address] Dr. More Restrepo IG % 0.8 % Critically high 0.0-0.5 [facility] Comment on above: Performed By: #### C BC #### [facility] [address] [place] [address] Dr. More Restrepo LYMPH # 1.5 103/ul Normal 1.2-3.8 [facility] Comment on above: Performed By: #### C BC #### [facility] [address] [place] [address] Dr. More Restrepo Lymphocytes/100 WBC (Bld) 24.8 % Normal 20.5-60.0 [facility] Comment on above: Performed By: #### C BC #### [facility] [address] [place] [address] Dr. More Restrepo MANUAL DIFF REQ NO Normal [facility] Comment on above: Performed By: #### C BC #### [facility] [address] [place] [address] Dr. More Restrepo MCH (RBC) [Entitic mass] 29.6 pg Normal 25.9-34.0 [facility] Comment on above: Performed By: #### C BC #### [facility] [address] [place] [address] Dr. More Restrepo MCHC (RBC) [Mass/Vol] 33.6 g/dL Normal 29.9-35.2 [facility] Comment on above: Performed By: #### C BC #### [facility] [address] [place] [address] Dr. More Restrepo MCV (RBC) [Entitic vol] 88.2 fL Normal 80.0-94.0 [facility] Comment on above: Performed By: #### C BC #### [facility] [address] [place] [address] Dr. More Restrepo MONO # 0.5 103/ul Normal 0.3-0.8 [facility] Comment on above: Performed By: #### C BC #### [facility] [address] [place] [address] Dr. More Restrepo Monocytes/100 WBC (Bld) 8.8 % Normal 1.7-12.0 [facility] Comment on above: Performed By: #### C BC #### [facility] [address] [place] [address] Dr. More Restrepo NEUT # 3.8 103/ul Normal 1.4-6.5 [facility] Comment on above: Performed By: #### C BC #### [facility] [address] [place] [address] Dr. More Restrepo Neutrophils/100 WBC (Bld) 63.9 % Normal 43.0-75.0 [facility] Comment on above: Performed By: #### C BC #### [facility] [address] [place] [address] Dr. More Restrepo Platelet mean volume (Bld) [Entitic vol] 9.4 fL Critically low 9.5-13.5 [facility] Comment on above: Performed By: #### C BC #### [facility] [address] [place] [address] Dr. More Restrepo PLT 265 103/ul Normal 150-450 [facility] Comment on above: Performed By: #### C BC #### [facility] [address] [place] [address] Dr. More Restrepo RBC 4.83 106/ul Normal 4.70-6.10 [facility] Comment on above: Performed By: #### C BC #### [facility] [address] [place] [address] Dr. More Restrepo WBC 5.9 103/ul Normal 4.0-11.0 [facility] Comment on above: Performed By: #### C BC #### [facility] [address] [place] [address] Dr. More Restrepo CRPon 03-26-2022 CRP 0.5 mg/dL Normal <=1.0 [facility] Comment on above: Performed By: #### C RP, BMP #### [facility] [address] [place] [address] Dr. More Restrepo D-DIMERon 03-26-2022 D-DIMER 0.19 mg/L FEU Normal <=0.59 [facility] Comment on above: Performed By: #### D DIM #### [facility] [address] [place] [address] Dr. More Restrepo D-DIMER COMMENTS SEE BELOW Normal [facility] Comment on above: Result Comment: Incr eases in D-Dimer concentration observed with thromboembolic events can be variable due to localization, size, and age of the thrombus. Therefore, a thromboembolic event cannot be diagnosed with certainty on the basis of the reference range. D-Dimers may also be elevated for a variety of disorders including: advanced age, , coronary disease, cancer, liver disease, infection, inflammation, hematoma, DIC, trauma, post-surgery, diabetes, thrombolytic or anticoagulant therapy, stress, and generalized hospitalization. Performed By: #### D DIM #### [facility] [address] [place] [address] Dr. More Restrepo PROF CHEM 8 (BAS METB)on Anion gap [Moles/Vol] 8.6 mmol/L Normal [facility] Comment on above: Performed By: #### C RP, BMP #### [facility] [address] [place] [address] Dr. More Restrepo Calcium [Mass/Vol] 8.7 mg/dL Normal 8.5-10.1 [facility] Comment on above: Performed By: #### C RP, BMP #### [facility] [address] [place] [address] Dr. More Restrepo Chloride [Moles/Vol] 104 mmol/L Normal 98-107 [facility] Comment on above: Performed By: #### C RP, BMP #### [facility] [address] [place] [address] Dr. More Restrepo CO2 [Moles/Vol] 29.4 mmol/L Normal 21.0-32.0 [facility] Comment on above: Performed By: #### C RP, BMP #### [facility] [address] [place] [address] Dr. More Restrepo Creatinine [Mass/Vol] 0.94 mg/dL Normal 0.70-1.30 [facility] Comment on above: Performed By: #### C RP, BMP #### [facility] [address] [place] [address] Dr. More Restrepo EGFR-AF FILIPINO >60 Normal >=60 [facility] Comment on above: Performed By: #### C RP, BMP #### [facility] [address] [place] [address] Dr. More Restrepo EGFR-NON AF FILIPINO >60 Normal >=60 [facility] Comment on above: Performed By: #### C RP, BMP #### [facility] [address] [address] [address] More Restrepo Glucose [Mass/Vol] 97 mg/dL Normal 74-106 [facility] Comment on above: Performed By: #### C RP, BMP #### [facility] [address] [address] [address] More Restrepo Potassium [Moles/Vol] 4.0 mmol/L Normal 3.5-5.1 [facility] Comment on above: Performed By: #### C RP, BMP #### [facility] [address] [address] [address] More Restrepo Sodium [Moles/Vol] 138 mmol/L Normal 136-145 [facility] Comment on above: Performed By: #### C RP, BMP #### [facility] [address] [place] [address] Dr. More Restrepo Urea nitrogen [Mass/Vol] 12.0 mg/dL Normal 7.0-18.0 [facility] Comment on above: Performed By: #### C RP, BMP #### [facility] [address] [place] [address] Dr. More Restrepo Urea nitrogen/Creatinin e [Mass ratio] 12.8 mg/mg Normal [facility] Comment on above: Performed By: #### C RP, BMP #### [facility] [address] [place] [address] Dr. More Restrepo SED RATE [facility] 2021 SED RATE 16 mm/hr Critically high <=15 [facility] Comment on above: Performed By: #### S EDR #### [facility] [address] [place] [address] Dr. More Restrepo XR ANKLE LT MIN 3 Von 2021 XR ANKLE LT MIN 3 V EXAM: XR ANKLE LT MIN 3 V HISTORY: Arthralgia of the ankle and/or foot COMPARISON: None. TECHNIQUE: AP, lateral oblique views of the left ankle are obtained. FINDINGS: There is no focal soft tissue swelling or sizable ankle joint effusion. Osseous mineralization is within normal limits. No acute fracture or dislocation. The ankle mortise and joint spaces are normally maintained. IMPRESSION: No acute fracture or dislocation. Electronically authenticated by: NILESH DELUCA Date: 2022-03-26 04:21 Normal [facility] COVID Quick Testingon 2020 Result Positive [facility] Other XR humerus LT*on 07-31-2020 XR humerus LT* [facility] Main [facility] [address] [place] [address] XRay Report Signed Patient: Av Martinez MR#: [id number] : 1985 Acct:[id number] Age/Sex: 35 / F ADM Date: 07/31/20 Loc: [facility] Room: Type: [facility] Attending Dr: Anna ROGER Ordering Provider: ANNA DENISE Date of Service: 07/31/20 XR/XR humerus LT*: [id number] Copies to: ANNA DENISE Left humerus 07/31/2020. CLINICAL DATA: Upper left arm pain. No known injury. FINDINGS: 2 views of the left humerus were obtained. No acute fracture or dislocation is identified. No other bony abnormality is seen. The soft tissues appear unremarkable as visualized. XR/XR humerus LT* IMPRESSION: No visible bony abnormality. Impression dictated by: Eber Corbett Jr., M.D.07/31/2020 5:17 PM Dictation Location: [place] [address] Transcribed By: [facility] 07/31/201716 Dictated By: Eber Corbett Jr, MD 07/31/201714 Signed By: 07/31/[address] [facility] Vital Signs Date Time Vital Sign Value Performing Clinician Facility 04-24-2023 13:45-0500 Body height 175.26 cm Kalyani Gamble Other [facility] Other 04-24-2023 13:45-0500 Body mass index (BMI) [Ratio] 37.65 kg/m2 Kalyani Gamble Other [facility] Other 04-24-2023 13:45-0500 Body temperature 98.1 [degF] Kalyani Varnerney Other [facility] Other 04-24-2023 13:45-0500 Body weight 115.67 kg Kalyani Gamble Other [facility] Other 04-24-2023 13:45-0500 Respiratory rate 19 /min Kalyani Gamble Other [facility] Other 04-24-2023 13:45-0500 SaO2% (BldA) [Mass fraction] 96 % Kalyani Meraarney Other [facility] Other 04-22-2021 13:15-0500 Body height 175.26 cm Ginger Gardner Other [facility] Other 04-22-2021 13:15-0500 Body mass index (BMI) [Ratio] 35.44 kg/m2 Ginger Gardner Other [facility] Other 04-22-2021 13:15-0500 Body temperature 97.6 [degF] Ginger Gardner Other [facility] Other 04-22-2021 13:15-0500 Body weight 108.86 kg Ginger Gardner Other [facility] Other 04-22-2021 13:15-0500 Respiratory rate 16 /min Ginger Gardner Other [facility] Other 04-22-2021 13:15-0500 SaO2% (BldA) [Mass fraction] 95 % Ginger Gardner Other [facility] Other 02-24-2021 14:15-0400 Body height 175.26 cm Nathalia Salazar Other [facility] Other 02-24-2021 14:15-0400 Body mass index (BMI) [Ratio] 35.44 kg/m2 Nathalia Salazar Other [facility] Other 02-24-2021 14:15-0400 Body temperature 98.8 [degF] Nathalia Salazar Other [facility] Other 02-24-2021 14:15-0400 Body weight 108.86 kg Nathalia Salazar Other [facility] Other 02-24-2021 14:15-0400 SaO2% (BldA) [Mass fraction] 97 % Nathalia Salazar Other [facility] Other Encounters Encounter Date Encounter Type Care Provider Facility Start: 06-02-2023 End: 06-03-2023 ambulatory Radha L Adeline Facility:[facility] Start: 05-16-2023 End: 05-17-2023 ambulatory Radha L Adeline Facility:[facility] Start: 05-06-2023 End: 05-07-2023 ambulatory Radha L Adeline Facility:[facility] Start: 04-24-2023 End: 04-24-2023 ambulatory Kalyani Gamble Other [facility] Other Start: 04-24-2023 Office outpatient vi sit 25 minutes Kalyani Gamble [facility] Start: 11-25-2022 End: 11-26-2022 ambulatory Radha L Adeline Facility:[facility] Start: 06-30-2023 ambulatory Radha Adeline Facility:[facility] Start: 06-01-2022 End: 06-01-[address] CANDIDO MEEHAN Facility:[facility] Start: 03-26-2022 End: 03-26-[address] CANDIDO MEEHAN Facility:[facility] Start: 04-22-2021 End: 04-22-2021 ambulatory Ginger Gardner Other [facility] Other Start: 04-22-2021 Office outpatient vi sit 15 minutes Ginger Gardner [facility] Start: 02-24-2021 Office outpatient vi sit 15 minutes Nathalia Salazar [facility] Payers Date Payer Category Payer Self-pay 1985 Unknown [id number] 2.16.84 [id number] 1985 Unknown [id number] 2.16.84 [id number] 1985 Unknown [id number] 2.16.8 [id number] 1985 Unknown [id number] 2.16.8 [id number] 1985 Unknown [id number] 2.16.8 [id number] 1985 Unknown [id number] 2.16.8 [id number] 1985 Unknown [id number] 2.16.8 [id number] 1961 [facility] [id number] Social History Date Type Detail Facility Unknown if ever smoked [facility] Other Sex Assigned At Sex Assigned At Bir th [facility] Other Evaluation note 04-24-2023 Note Date & Type Note Facility 04-24-2023 Evaluation note Encounter Date Diagnosis Assessment Notes 30 Nov, 2023 Viral upper respiratory illness (ICD-10 - J06.9) Illness appears to be viral in nature. Instructed patient to increase fluid intake and rest. OTC Flonase per label instructions. May OTC cold medication per label instructions. Follow up with PCP if symptoms do not improve or worsen. All questions and concerns addressed. [facility] Other Evaluation note 04-22-2021 Note Date & Type Note Facility 04-22-2021 Evaluation note Encounter Date Diagnosis Assessment Notes Mar, Contact with and (suspected) exposure to other viral communicable diseases (ICD-10 - Z20.828) covid pos, see above. Mar, COVID (ICD-10 - U07.1) Covid test pos in office today. Pt is to use inhaler as prescribed prn for cough and wheeze. Supportive care as directed. Push fluids and rest. Pt is to take otc antipyretic prn for fever and aches. Pt is to take rx cough suppressant prn for cough. They are to follow the recommended stay at home quarantine rules for 10 days from onset of sx and they are to avoid contact with others in the home. Pt is to be re-evaluated after tx if sx worsen or don't improve by pcp or UC. Discussed at length sx of resp distress that would indicate need for immediate ER tx. Sx include but not limited to worsening SOB, wheeze, dyspnea, difficulty swallowing or breathing, and chest pain. Go straight to ER for any of these sx. Pt is to call the office with any questions or concerns regarding dx and tx. Information sheet with test results, general info on covid virus, and info sheet about treatment at home and quarantine guidelines was provided to pt in office today. Pt was referred to PCP for chronic management. Pt understood and agreed to tx plan. Mar, Other Additional time spent conducting pre-visit phone call, screening for symptoms, instructions on social distancing, application and removal of PPE, and cleaning of examination room, equipment and supplies was preformed. Patient education given for testing methodology and results. Patient care instructions given in writting by [facility] document. [facility] Other Evaluation note 02-24-2021 Note Date & Type Note Facility 02-24-2021 Evaluation note Encounter Date Diagnosis Assessment Notes Feb, Contact with and (suspected) exposure to other viral communicable diseases (ICD-10 - Z20.828) Feb, Bronchitis (ICD-10 - J40) Drink plenty fluids, get plenty of rest. Take the prednisone as prescribed until gone. Use the albuterol inhaler as prescribed as needed for cough or shortness of breath. Follow-up with your family physician if no improvement in 2 to 3 days Feb, Sore throat (ICD-10 - J02.9) Feb, Viral upper respiratory illness (ICD-10 - J06.9) Feb, Other Additional time spent conducting pre-visit phone call, screening for symptoms, instructions on social distancing, application and removal of PPE, and cleaning of examination room, equipment and supplies was preformed. Patient education given for testing methodology and results. Patient care instructions given in writting by [facility] document. [facility] Other History general Narrative - Reported Note Date & Type Note Facility History general Narrative - Reported Type Medical History anxiety [facility] Other Summary Purpose Family History No Family History Records FoundNo Family History Records FoundNo Family History Records Found Advance Directives No Advanced Directives Records FoundNo Advanced Directives Records FoundNo Advanced Directives Records Found Additional Source Comments INFORMATION SOURCE (unrecogn ized section and content) DATE CREATED AUTHOR 05/14/[address] [facility] DATE CREATED AUTHOR AUTHOR'S ORGANIZ ATION 06/04/2022 [facility] DATE CREATED AUTHOR AUTHOR'S ORGANIZ ATION 06/03/2023 [facility] REASON FOR VISIT (unrecogniz ed section and content) #18 WHTIE TRAVERSE, COUGH, C ONGESTION, SORE THROAT, FATIGUEFEVER CHILLS, HEADACHE, LOSS OF TASTESORE THROAT, SINUS PRESSURE, DRAINAGE (unrecognized sect ion and content) No Status Records FoundNo Status Records Found FOR RECORDS PERTAINING TO PATIENTS WHO ARE OR HAVE BEEN ENROLLED IN A CHEMICAL DEPENDENCY/SUBSTANCEABUSE PROGRAM, SOME INFORMATION MAY BE OMITTED. This clinical summary was aggregated from multiple sources. Caution should be exercised in using it in the provision of clinical care. This summary normalizes information from multiple sources, and as a consequence, information in this document may materially change the coding, format and clinical context of patient data. In addition, data may be omitted in some cases. CLINICAL DECISIONS SHOULD BE BASED ON THE PRIMARY CLINICAL RECORDS. [employer] [facility]. provides no warranty or guarantee of the accuracy or completeness of information in this document.
--- NOTE | 2023-08-16 01:33 | XR_ITS ---
The [address] [address] Patient Name: VILMA MARTINEZ MRN: [id number] date: 1985 Sex: M Assigned Patient Location: ER Current Patient Location: ER Accession/Order Number: [id number] Exam Date: 08/16/2023 01:40 Report Date: 08/16/2023 01:59 At the request of: KRANTHI VYAS Procedure: XR tibia fibula RT 2V EXAM: XR tibia fibula RT 2V HISTORY: Atraumatic pain COMPARISON: None. TECHNIQUE: 2 views of the right tibia and fibula were obtained. FINDINGS: No acute fracture or dislocation is seen. The joint spaces are preserved. There is no significant right ankle joint effusion. XR/XR tibia fibula RT 2V IMPRESSION: 1. No acute or significant abnormality of the right tibia or fibula is seen. Electronically authenticated by: Naveen ANDRADE Date: 08/16/2023 01:59
[2023-08-16 02:10] LABS: D Dimer <0.19 mg/L FEU (<=0.59)
--- NOTE | 2023-08-16 02:20 | ED.LOWEXI1 ---
HPI - Extremity Injury (Lower) General Chief Complaint: Extremity Injury, Lower Stated Complaint: LE PAIN Time Seen by Provider: 08/16/23 01:24 Source: patient Mode of arrival: walk-in Limitations: no limitations History of Present Illness HPI Narrative: 38 old male presents for pain in his right lateral lower leg which is now resolved. He was at work and felt like the outside of his leg was hot. It lasted for a few seconds and then went away and then it happened again. There is no unusual activity. No knee pain or ankle pain. He has never had a DVT but he states he has been checked for 1 before. Related Data Home Medications ?Medication ?Instructions ?Recorded ?Confirmed No Known Home Medications 02/08/23 08/16/23 Allergies Allergy/AdvReac Type Severity Reaction Status Date / Time Sulfa (Sulfonamide AdvReac Intermediate Verified 08/16/23 01:25 Antibiotics) bactrim AdvReac Intermediate Uncoded 02/08/23 13:22 Review of Systems ROS Narrative A ten point review of systems is negative except as noted above. Exam Narrative Exam Narrative: Nurses note and vital signs reviewed and patient is not hypoxic. General: The patient appears well and in no apparent distress. Patient is resting comfortably on cart. Skin: Warm, dry, no pallor noted. There is no rash noted. Head: Normocephalic, atraumatic Eye: Normal conjunctiva, no drainage Ears, Nose, Mouth, and Throat: oral mucosa is moist. Nares patent. Cardiovascular: Regular Rate and Rhythm Respiratory: Patient is in no distress, no accessory muscle use, lungs are clear to auscultation, no wheezing, rales or rhonchi Back: non-tender GI: Soft and nontender Musculoskeletal: The right knee and ankle are nontender. He has no swelling, erythema, bruise or rash in the calf area. His leg is not warm to touch. Neurological: A&O, normal speech Psychiatric: Cooperative Constitutional Vital Signs, click to edit/add: Last Vital Signs Temp 98.6 F 08/16/23 01:20 Pulse 93 H 08/16/23 01:20 Resp 16 08/16/23 01:20 BP 160/90 H 08/16/23 01:20 Pulse Ox 98 08/16/23 01:20 O2 Del Method Room Air 08/16/23 01:20 Course Vital Signs Vital signs: Vital Signs Temperature 98.6 F 08/16/23 01:20 Pulse Rate 93 H 08/16/23 01:20 Respiratory Rate 16 08/16/23 01:20 Blood Pressure 160/90 H 08/16/23 01:20 Pulse Oximetry 98 08/16/23 01:20 Oxygen Delivery Method Room Air 08/16/23 01:20 Temperature 98.6 F 08/16/23 01:20 Pulse Rate 93 H 08/16/23 01:20 Respiratory Rate 16 08/16/23 01:20 Blood Pressure 160/90 H 08/16/23 01:20 Pulse Oximetry 98 08/16/23 01:20 Oxygen Delivery Method Room Air 08/16/23 01:20 MDM - Extremity Injury (Lower) MDM Narrative Medical decision making narrative: Symptom has resolved. X-ray is negative and D-dimer is immeasurable. He was reassured and discharged home. At this point I have no clinical suspicion of DVT. Differential Diagnosis Differential diagnosis: Likely other (Muscle strain, DVT, leg pain) Lab Data Attestation: I reviewed the patient's lab results. Labs: Lab Results 08/16/23 Range/Units 01:42 D-Dimer <0.19 (<=0.59) mg/L FEU Imaging Data Tibia/fibula x-ray: Radiologist's impression: ITS Impressions Tibia/Fibula X-Ray 08/16/23 01:33 IMPRESSION: 1. No acute or significant abnormality of the right tibia or fibula is seen. Electronically authenticated by: Naveen ANDRADE Date: 08/16/2023 01:59 Discharge Plan Discharge Stand Alone Forms: Portal Instructions Chief Complaint: Extremity Injury, Lower Clinical Impression: Leg pain, right Patient Disposition: Home, Self-Care Time of Disposition Decision: 02:20 Condition: Good Mode of Transportation: Private Vehicle Prescriptions / Home Meds: No Action No Known Home Medications Print Language: Citizen Of [place] Instructions: Leg Pain (ED) Referrals: PANCHO SHER [Primary Care Provider] - 1 week
== END 2023-08-16 02:28 | disposition home or self-care (01) ==
PROVIDERS: Emergency Provider Emergency Medicine; PCP Nurse Practitioner
DX: M79.604 Pain in right leg (principal)
CPT/HCPCS: 36415; 73590; 85378; 99284

== ENCOUNTER 2023-11-11 19:44 | Emergency (ER) | payer OTHER, BC, SELFPAY ==
[2023-11-11 19:47] VITALS: BP 186/129; PULSE 100; TEMP 36.6; O2SAT 99; BMI 36.9
--- NOTE | 2023-11-11 20:06 | CT_ITS ---
The [address] [address] Patient Name: VILMA MARTINEZ MRN: [id number] date: 1985 Sex: M Assigned Patient Location: ER Current Patient Location: ER Accession/Order Number: [id number] Exam Date: 11/11/2023 20:15 Report Date: 11/11/2023 20:55 At the request of: NICK CHANG Procedure: CT cervical spine wo con CT CERVICAL SPINE WITHOUT : 11/11/2023 8:15 PM EDT HISTORY: Neck pain. TECHNIQUE: Thin section axial CT images were obtained from the foramen magnum to the T1 vertebral body. Thin section sagittal and coronal reconstructed images were performed from the axial data set. Dose reduction techniques were achieved by using automated exposure control and/or adjustment of mA and/or kV according to patient size and/or use of iterative reconstruction technique. CONTRAST: None. COMPARISON: None. FINDINGS: Normal skull base of odontoid. The included paranasal sinuses and mastoid air cells are clear. Posterior fossa is unremarkable. There is no fracture or vertebral body height loss. There is no destructive osseous lesion. Normal anatomic alignment is maintained. There is no spondylolisthesis. There is no significant degenerative change. Osseous mineralization is within normal limits. The paraspinal soft tissues are unremarkable. There is no prevertebral soft tissue swelling. Lung apices are clear. Normal disc spaces and disc heights. Normal facet joints. No central canal or neural foraminal narrowing. Incidentally noted chronic ossific densities within nuchal ligament posterior to the C5 and C6 spinous processes are present likely from old nuchal ligament injury. CT/CT cervical spine wo con IMPRESSION: No fracture or malalignment. Electronically authenticated by: NU PATTERSON Date: 11/11/2023 20:55
--- NOTE | 2023-11-11 20:06 | CT_ITS ---
The [address] [address] Patient Name: VILMA MARTINEZ MRN: [id number] date: 1985 Sex: M Assigned Patient Location: ER Current Patient Location: ER Accession/Order Number: [id number] Exam Date: 11/11/2023 20:15 Report Date: 11/11/2023 20:55 At the request of: NICK CHANG Procedure: CT head/brain wo con CT OF THE BRAIN WITHOUT CONTRAST: 11/11/2023 8:15 PM EDT HISTORY: Head injury. TECHNIQUE: Contiguous axially collimated images were obtained through the intracranial compartment, from the vertex through the foramen magnum. Coronal and Sagittal reformatted images were prepared on a separate workstation and reviewed on the PACS for anatomic correlation. No contrast was administered. This CT exam was performed using one or more of the following dose reduction techniques: Automated exposure control, adjustment of the mA and/or kV according to patient size, or use of iterative reconstruction technique. Thin section coronal and sagittal images were reconstructed from the axial data set. All images were reviewed and interpreted. COMPARISON: None. FINDINGS: There is some linear hyperdense presumed streak artifact in the bilateral inferior frontal lobes, right greater than left. This is felt to be artifact rather than hemorrhage but suggest patient have repeat study with changing gantry angle in the frontal region to assess. No evidence of intra-axial or extra-axial hemorrhage are seen otherwise. To the extent of evaluated with noncontrast technique, there is no mass lesion appreciated. There is no mass-effect or shift of midline structures. The ventricles and CSF spaces are age appropriate. There is no evidence of hydrocephalus. There is no effacement of the basal cisterns. Liu white matter differentiation is well preserved throughout, without evidence of acute ischemia. There is no significant leukomalacia. The basal ganglia and thalami are unremarkable. The posterior fossa, brain stem, and fourth ventricle are normal. There is no tonsillar ectopy. The calvarium is intact, without destructive lesion or depressed fracture. The mastoid air cells are well-aerated. The paranasal sinuses are normally aerated. CT/CT head/brain wo con IMPRESSION: Linear hyperdensities presumed streak artifact in the bilateral inferior frontal lobes, right greater than left. This is felt to be artifact rather than hemorrhage but in light of patient history, recommend patient have repeat study with changing gantry angle in the frontal region to reassess and confirm artifact from hemorrhage. Unremarkable study otherwise Electronically authenticated by: NU PATTERSON Date: 11/11/2023 20:55
--- NOTE | 2023-11-11 20:06 | ED.HEATRA1 ---
HPI HPI - Head Injury General Chief complaint: Head Injury Stated complaint: [facility] Head Injury Time Seen by Provider: 11/11/23 19:59 Source: patient Mode of arrival: walk-in Limitations: no limitations History of Present Illness HPI Narrative: struck his head on robotic arm at work. States there is a dent in the helmet he was wearing. Mild swelling top of his head. No LOC. dazed transient. No nausea or vomiting or dizziness. no complaint of neck pain or extremity numbness or weakness. Denies other injury Related Data Home Medications ?Medication ?Instructions ?Recorded ?Confirmed No Known Home Medications 02/08/23 11/11/23 Allergies Allergy/AdvReac Type Severity Reaction Status Date / Time Sulfa (Sulfonamide AdvReac Intermediate Verified 11/11/23 19:53 Antibiotics) bactrim AdvReac Intermediate Uncoded 11/11/23 19:53 Opioid HPI Opioid Management Most Recent Pain and Opioid Data: Last Pain Scale 4 11/11/23 20:33 Review of Systems ROS Status of ROS 10 or more systems reviewed and unremarkable except as noted in history and below Exam Constitutional Vital Signs, click to edit/add: Last Vital Signs Temp 97.8 F 11/11/23 19:47 Pulse 100 H 11/11/23 19:47 Resp 18 11/11/23 19:47 BP 140/83 11/11/23 21:00 Pulse Ox 99 11/11/23 19:47 O2 Del Method Room Air 11/11/23 19:47 Common normals: no apparent distress, average body habitus, oriented x3, no limitations, healthy appearing, alert and well nourished [facility] Other: ? sl. swelling of top of parietal scalp. no discoloration or bruising Eye Common normals: EOMs intact bilaterally and conjunctivae normal Respiratory Common normals: normal respiratory effort, no retractions and no use of accessory muscles Cardio Common normals: regular rate, regular rhythm, S1 normal heart sound and S2 normal heart sound Extremity Common normals: normal to inspection and full ROM Neuro Common normals: oriented x3, CN's II-XII intact bilaterally, moves all extremities and no focal motor deficits Psych Appearance: grossly normal Course Vital Signs Vital signs: Vital Signs Temperature 97.8 F 11/11/23 19:47 Pulse Rate 100 H 11/11/23 19:47 Respiratory Rate 18 11/11/23 19:47 Blood Pressure 186/129 H 11/11/23 19:47 Pulse Oximetry 99 11/11/23 19:47 Oxygen Delivery Method Room Air 11/11/23 19:47 Temperature 97.8 F 11/11/23 19:47 Pulse Rate 100 H 11/11/23 19:47 Respiratory Rate 18 11/11/23 19:47 Blood Pressure 140/83 11/11/23 21:00 Pulse Oximetry 99 11/11/23 19:47 Oxygen Delivery Method Room Air 11/11/23 19:47 MDM - Head Injury MDM Narrative Medical decision making narrative: presents after bumping his head on a robotic arm at work. No LOC. does have mild headache and ? sl swelling top of his head. Normal neuro exam including gait. neg CT brain. Discharged home in stable condition. Imaging Data CT scan - head: Radiologist's impression: ITS Impressions Cervical Spine CT 11/11/23 20:06 IMPRESSION: No fracture or malalignment. Electronically authenticated by: NU PATTERSON Date: 11/11/2023 20:[address] 11/11/23 20:06 IMPRESSION: Linear hyperdensities presumed streak artifact in the bilateral inferior frontal lobes, right greater than left. This is felt to be artifact rather than hemorrhage but in light of patient history, recommend patient have repeat study with changing gantry angle in the frontal region to reassess and confirm artifact from hemorrhage. Unremarkable study otherwise Electronically authenticated by: NU PATTERSON Date: 11/11/2023 20:[address] 11/11/23 21:04 IMPRESSION: 1. Beam hardening artifacts seen in the inferomedial aspect of the frontal lobes. 2. No acute intracranial abnormality. No hemorrhage or mass effect. Electronically authenticated by: EMILIA HAGER Date: 11/11/2023 22:01 Discharge Plan Discharge Stand Alone Forms: Portal Instructions Chief Complaint: Head Injury Clinical Impression: Closed head injury Patient Disposition: Home, Self-Care Prescriptions / Home Meds: No Action No Known Home Medications Print Language: Urdu Instructions: Head Injury (ED) Referrals: PANCHO SHER [Primary Care Provider] - 1 week
--- OUTSIDE RECORDS SUMMARY | 2023-11-11 20:09 | XMS_ITS | CCD ---
Author Organization [facility] Care Team Providers Care [employer] Processor Name Role Phone Nathalia Salazar Unavailable Ginger Gardner Unavailable MARCELLUS, DR REY Primary Care Unavailable MARKER, DR REN Admitting Unavailable MARKER, DR REN Attending Unavailable MARKER, DR REN Consulting Unavailable NILESH DELUCA Consulting Unavailable MARCELLUS, DR REY Primary Care Unavailable KRANTHI VYAS Admitting Unavailable KRANTHI VYAS Attending Unavailable KRANTHI VYAS Consulting Unavailable HODA DUNHAM Consulting Unavailable CAPRICE ANDERSON Consulting Unavailable Kalyani Gamble Unavailable Radha Lr Attending Unavailable Adeline, Radha Nelson Attending Unavailable Adeline, Radha Nelson Attending Unavailable Adeline, Radha Nelson Attending Unavailable AdelineRadha Attending Unavailable Allergies Allergy Classification Reported Allergen(s) Allergy Type Date of Onset Reaction(s) Facility (3 sources) Sulfamethoxazole / Trimethoprim Drug Allergy [facility] Other (2 sources) sulfaSALAzine Drug Allergy [facility] Other (1 source) Sulfamethoxazole / Trimethoprim Drug Allergy 01-25-20 17 [facility] Repository (1 source) Sulfonamides (Antibiotic) Drug allergy (disorder) 01-25-20 17 [facility] Repository (1 source) Substance with sulfonamide structure and antibacterial mechanism of action (substance) Drug allergy [facility] Other (1 source) Sulfonamides (Antibiotic); Translations: [sulfa drugs] Propensity to adverse reactions (disorder) [facility] Repository Medications Current Medications Medication Drug Class(es) Dates Sig (Normalized) Sig (Original) [id number] 200 actuat albuterol 0.09 mg/actuat metered dose [...] oral tablet (1 source) alpha-Adrenergic Agonist, Uncompetitive T-badhom-E-aspartate Receptor Antagonist, Sigma-1 Agonist Start: 04-22-2021 take [...] Test Name Value Interpretation Reference Range Facility [facility] 09-09-2023 Forms [id number]#1.0 0TIFF [facility] Ambulatory Visit Summaryon 0 08-19-2023 Ambulatory Visit Summary AV MARTINEZ :1985 Visit Date:08/19/2023 Ambulatory Visit Instructions Your Diagnosis BMI 39.0-39.9,adult Non-smoker Your Care Team Attending Physician - Radha Umaña Primary Care Physician - Radha Umaña This Is Your Medications List albuterol (Albuterol (Eqv-ProAir HFA) 90 mcg/inh inhalation aerosol) Discharge Vitals Heart Rate (Peripheral) 82 Respiratory Rate 18 Blood Pressure 140/88 Height 170.0 cm Height 67 in Weight 114.1 kg Weight 251.02 lb BMI 39.48 Medications What How Much When Why Instructions Unchanged albuterol (Albuterol (Eqv-ProAir HFA) 90 mcg/ inh inhalation aerosol) 2 Puffs Inhalation Every 6 hours BMI 38.0-38.9,adult Non-smoker Allergies sulfa drugs (Hives) Problems Ongoing - [...] for choosing us for your care. Normal [facility] Family Medicine Office/Clini c Noteon 08-19-2023 Family Medicine Office/Clinic Note HPI Staff Av is a 38 year old male presenting for ER follow up ER followup: Hospital: [facility] Visit date: 08/15/23 Symptoms the patient presented with: right lateral lower leg/ankle, felt hot pain last few second happened a few times, Symptom onset/injury onset: 08/15/23 Testing Performed:x-ray and D-Dimer negative Current concerns: pt states he was stretching at work when this happened. He denies any injury. This continues to happen intermittently. Unsure what movement cause it. History of Present Illness pt was stretching at work and his right out calf started feeling warm. DVT was ruled out at ER Review of Systems PHQ Score Initial Depression Screen Score: 0 SCORE Physical Exam Vitals & Measurements HR: 82(Peripheral) RR: 18 BP: 140/88 SpO2: 99% HT: 67 in HT: 170.0 cm WT: 114.1 kg WT: 251.02 lb BMI: 39.48 General: alert, no acute distress ENMT: oral mucosa moist, no pharyngeal erythema or exudate Cardiovascular: regular rate and rhythm, normal peripheral perfusion Respiratory: Lungs CTA, respirations non labored Extremities: no deformity, no trauma Neurological: oriented x 4, LOC appropriate for age, CN II-XII intact, motor strength equal & normal bilaterally, speech normal right outer calf gets warm sensation not pain Assessment/Plan 1. 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 denies pain. will order medrol and meloxicam. if no improvement in 2 weeks will try gabapentin. and possibly EMG. Ordered: meloxicam, 15 mg = 1 tab(s), Oral, Daily, # 30 tab(s), Refills(s) 0, Pharmacy: [facility] #[id number], 170, cm, 08/19/23 14:58:00 EDT, Height/Length Dosing, 114.1, kg, 08/19/23 14:58:00 EDT, Weight Dosing methylPREDNISolone, = 1 packet(s), Oral, As Directed, as directed on package labeling, X 6 day(s), # 21 tab(s), Refills(s) 0, Pharmacy: [facility] #[id number], 170, cm, 08/19/23 14:58:00 EDT, Height/Length Dosing, 114.1, kg, 08/19/23 14:58:00 EDT, Weight Dosing 2. BMI 39.0-39.9,adult (Z68.39: Body mass index [BMI] 39.0-39.9, adult) BMI education complete Ordered: meloxicam, 15 mg = 1 tab(s), Oral, Daily, # 30 tab(s), Refills(s) 0, Pharmacy: [facility]/pharmacy #[id number], 170, cm, 08/19/23 14:58:00 EDT, Height/Length Dosing, 114.1, kg, 08/19/23 14:58:00 EDT, Weight Dosing methylPREDNISolone, = 1 packet(s), Oral, As Directed, as directed on package labeling, X 6 day(s), # 21 tab(s), Refills(s) 0, Pharmacy: [facility]/pharmacy #[id number], 170, cm, 08/19/23 14:58:00 EDT, Height/Length Dosing, 114.1, kg, 08/19/23 14:58:00 EDT, Weight Dosing 3. Non-smoker (Z78.9: Other specified health status) continue not smoking Ordered: meloxicam, 15 mg = 1 tab(s), Oral, Daily, # 30 tab(s), Refills(s) 0, Pharmacy: [facility]/pharmacy #[id number], 170, cm, 08/19/23 14:58:00 EDT, Height/Length Dosing, 114.1, kg, 08/19/23 14:58:00 EDT, Weight Dosing methylPREDNISolone, = 1 packet(s), Oral, As Directed, as directed on package labeling, X 6 day(s), # 21 tab(s), Refills(s) 0, Pharmacy: [facility]/pharmacy #[id number], 170, cm, 08/19/23 14:58:00 EDT, Height/Length Dosing, 114.1, kg, 08/19/23 14:58:00 EDT, Weight Dosing Follow-up No qualifying data available Problem List/Past Medical History Ongoing 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 Bronchitis Cough Nasal congestion Well adult exam Wheezing on expiration Historical No qualifying data Medications Albuterol (Eqv-ProAir HFA) 90 mcg/inh inhalation aerosol, 2 puff(s), Inhalation, q6hr Medrol 4 mg Tab, 1 packet(s), Oral, As Directed meloxicam 15 mg Tab, 15 mg= 1 tab(s), Oral, Daily Allergies sulfa drugs (Hives) Social History Alcohol [...] Recorded measles/mumps/rubella virus vaccine 06/12/1995 Recorded Normal [facility] Comment on above: Result Comment: Elec tronically Signed By: Radha Umaña\.br\Date and Time Signed: 08/19/23 15:37 EDT ED Note-Physicianon 08-18-19 ED Note-Physician [id number]#1.0 0TIFF [facility] RAD - MISCon 08-18-2023 RAD - MISC [id number]#1.0 0TIFF [facility] Ambulatory Visit Summaryon 0 06-02-2023 Ambulatory Visit [...] for choosing us for your care. Normal [facility] Medicine Office/Clini c Noteon 06-02-2023 [facility] Medicine Office/Clinic Note HPI Staff Av is [...] BID, # 12 gram, Refills(s) 0, [id number] 170.5, cm, 05/16/23 14:37:00 EST, Height/Length Dosing, 113.2, kg, 05/16/23 14:37:00 EST, Weight Dosing 3. BMI 38.0-38.9,adult (Z68.38: Body mass index [BMI] 38.0-38.9, adult) BMI education complete Ordered: albuterol, 2 puff(s), Inhalation, q6hr, 8.5 gm, Refill(s) 0, [facility]/pharmacy #[id number], 170, cm, 06/02/23 14:44:00 EST, Height/Length Dosing, 112, kg, 06/02/23 14:44:00 EST, Weight Dosing azithromycin, = 1 packet(s), Oral, As Directed, as directed on package labeling, X 5 day(s), # 6 tab(s), Refills(s) 0, [id number], 170, cm, 06/02/23 14:44:00 EST, Height/Length Dosing, 112, kg, 06/02/23 14:44:00 EST, Weight Dosing methylPREDNISolone, = 1 packet(s), Oral, As Directed, as directed on package labeling, X 6 day(s), # 21 tab(s), Refills(s) 0, Pharmacy: [facility]/pharmacy #[id number], 170, cm, 06/02/23 14:44:00 EST, Height/Length Dosing, 112, kg, 06/02/23 14:44:00 EST, Weight Dosing 4. Non-smoker (Z78.9: Other specified health status) continue not smoking Ordered: albuterol, 2 puff(s), Inhalation, q6hr, 8.5 gm, Refill(s) 0, [facility]/pharmacy #[id number], 170, cm, 06/02/23 14:44:00 EST, Height/Length Dosing, 112, kg, 06/02/23 14:44:00 EST, Weight Dosing azithromycin, = 1 packet(s), Oral, As Directed, as directed on package labeling, X 5 day(s), # 6 tab(s), Refills(s) 0, [id number], 170, cm, 06/02/23 14:44:00 EST, Height/Length Dosing, 112, kg, 06/02/23 14:44:00 EST, Weight Dosing fluticasone, = 2 puff(s), Inhalation, BID, # 12 gram, Refills(s) 0, Pharmacy: [facility]/pharmacy #[id number], 170.5, cm, 05/16/23 14:37:00 EST, Height/Length Dosing, 113.2, kg, 05/16/23 14:37:00 EST, Weight Dosing methylPREDNISolone, = 1 packet(s), Oral, As Directed, as directed on package labeling, X 6 day(s), # 21 tab(s), Refills(s) 0, [id number], 170, cm, 06/02/23 14:44:00 EST, [...] DTaP, unspecified f (more content not included)... [facility] Comment on above: Result Comment: Elec tronically Signed By: Radha Umaña\.br\Date and Time Signed: 06/02/23 15:20 EST Consenton 05-20-2023 Consent [id number]#1.0 0TIFF [facility] Physician Orderon 05-20-2023 Physician Order [id number]#1.0 0TIFF [facility] RAD - MISCon 05-20-2023 RAD - MISC [id number]#1.0 0TIFF [facility] Ambulatory Visit Summaryon 1 07-17-2022 Ambulatory Visit Summary AV MARTINEZ James :1985 Visit Date:05/16/2023 Ambulatory Visit Instructions Your [...] you for choosing us for your care. [facility] Family Medicine Office/Clini c Noteon 05-16-2023 Family [...] xray order provided. to be done at [facility]. all questions answered. RTC as needed Ordered: fluticasone, = 2 puff(s), Inhalation, BID, # 12 gram, Refills(s) 0, Pharmacy: [facility] #[id number], 170.5, cm, 05/16/23 14:37:00 EST, Height/Length Dosing, 113.2, kg, 05/16/23 14:37:00 EST, Weight Dosing levofloxacin, 500 mg = 1 tab(s), Oral, q24hr, X 7 day(s), # 7 tab(s), Refills(s) 0, Pharmacy: [facility] #[id number], 170.5, cm, 05/16/23 14:37:00 EST, Height/Length [...] BID, # 12 gram, Refills(s) 0, Pharmacy: [facility]/pharmacy #[id number], 170.5, cm, 05/16/23 14:37:00 EST, Height/Length Dosing, 113.2, kg, 05/16/23 14:37:00 EST, Weight Dosing levofloxacin, 500 mg = 1 tab(s), Oral, q24hr, X 7 day(s), # 7 tab(s), Refills(s) 0, Pharmacy: [facility]/pharmacy #[id number], 170.5, cm, 05/16/23 14:37:00 EST, [...] BID, # 12 gram, Refills(s) 0, Pharmacy: [facility]/pharmacy #[id number], 170.5, cm, 05/16/23 14:37:00 EST, Height/Length Dosing, 113.2, kg, 05/16/23 14:37:00 EST, Weight Dosing levofloxacin, 500 mg = 1 tab(s), Oral, q24hr, X 7 day(s), # 7 tab(s), Refills(s) 0, [id number], 170.5, cm, 05/16/23 14:37:00 EST, Height/Length Dosing, 113.2, kg, 05/16/23 14:37:00 EST, Weight Dosing triamcinolone, 60 mg = 1.5 mL, Injection, IntraMuscular, Once, Stop date 05/16/23 14:52:00 EST, Routine, Start date 05/16/23 14:52:00 EST, 05/16/23 14:52:00 EST 4. Non-smoker (Z78.9: Other specified health status) continue not smoking Ordered: fluticasone, = 2 puff(s), Inhalation, BID, # 12 gram, Refills(s) 0, [id number], 170.5, cm, 05/16/23 14:37:00 EST, Height/Length Dosing, 113.2, kg, 05/16/23 14:37:00 EST, Weight Dosing levofloxacin, 500 mg = 1 tab(s), Oral, q24hr, X 7 day(s), # 7 tab(s), Refills(s) 0, [id number], 170.5, cm, 05/16/23 14:37:00 EST, [...] 11/25/2022 Tob (more content not included)... Normal [facility] Comment on above: Result Comment: Elec tronically Signed By: Radha Umaña\.br\Date and Time Signed: 05/16/23 14:55 EST Ambulatory Visit Summaryon 1 07-07-2022 Ambulatory Visit Summary AV MARTINEZ :1985 Visit Date:05/06/2023 Ambulatory Visit Instructions Your [...] for choosing us for your care. Normal [facility] Family Medicine Office/Clini c Noteon 05-06-2023 Family Medicine [...] send z ilene, medrol dose pack and Zero9 pearls. all questions answered. RTC as needed Ordered: azithromycin, = 1 packet(s), Oral, As Directed, as directed on package labeling, X 5 day(s), # 6 tab(s), Refills(s) 0, [id number], 170.5, cm, 05/06/23 8:49:00 EST, Height/Length Dosing, 115.9, kg, 05/06/23 8:49:00 EST, Weight Dosing benzonatate, 200 mg = 1 cap(s), Oral, TID, X 7 day(s), # 21 cap(s), Refills(s) 0, Pharmacy: [facility]/pharmacy #[id number], 170.5, cm, 05/06/23 8:49:00 EST, Height/Length Dosing, 115.9, kg, 05/06/23 8:49:00 EST, Weight Dosing methylPREDNISolone, = 1 packet(s), Oral, As Directed, as directed on package labeling, X 6 day(s), # 21 tab(s), Refills(s) 0, Pharmacy: [facility]/pharmacy #[id number], 170.5, cm, 05/06/23 8:49:00 EST, Height/Length Dosing, 115.9, kg, 05/06/23 8:49:00 EST, Weight Dosing 2. Cough (R05.9: Cough, unspecified) medrol dose pack and tessalon pearls sent Ordered: azithromycin, = 1 packet(s), Oral, As Directed, as directed on package labeling, X 5 day(s), # 6 tab(s), Refills(s) 0, [id number], 170.5, cm, 05/06/23 8:49:00 EST, Height/Length Dosing, 115.9, kg, 05/06/23 8:49:00 EST, Weight Dosing benzonatate, 200 mg = 1 cap(s), Oral, TID, X 7 day(s), # 21 cap(s), Refills(s) 0, [id number], 170.5, cm, 05/06/23 8:49:00 EST, Height/Length Dosing, 115.9, kg, 05/06/23 8:49:00 EST, Weight Dosing methylPREDNISolone, = 1 packet(s), Oral, As Directed, as directed on package labeling, X 6 day(s), # 21 tab(s), Refills(s) 0, [id number], 170.5, cm, 05/06/23 8:49:00 EST, Height/Length Dosing, 115.9, kg, 05/06/23 8:49:00 EST, Weight Dosing 3. Nasal congestion (R09.81: Nasal congestion) see above Ordered: azithromycin, = 1 packet(s), Oral, As Directed, as directed on package labeling, X 5 day(s), # 6 tab(s), Refills(s) 0, [id number], 170.5, cm, 05/06/23 8:49:00 EST, Height/Length Dosing, 115.9, kg, 05/06/23 8:49:00 EST, Weight Dosing benzonatate, 200 mg = 1 cap(s), Oral, TID, X 7 day(s), # 21 cap(s), Refills(s) 0, [id number], 170.5, cm, 05/06/23 8:49:00 EST, Height/Length Dosing, 115.9, kg, 05/06/23 8:49:00 EST, Weight Dosing methylPREDNISolone, = 1 packet(s), Oral, As Directed, as directed on package labeling, X 6 day(s), # 21 tab(s), Refills(s) 0, [id number], 170.5, cm, 05/06/23 8:49:00 EST, Height/Length Dosing, 115.9, kg, 05/06/23 8:49:00 EST, Weight Dosing 4. Bronchitis (J40: Bronchitis, not specified as acute or chronic) see above Ordered: azithromycin, = 1 packet(s), Oral, As Directed, as directed on package labeling, X 5 day(s), # 6 tab(s), Refills(s) 0, [id number], 170.5, cm, 05/06/23 8:49:00 EST, Height/Length Dosing, 115.9, kg, 05/06/23 8:49:00 EST, Weight Dosing benzonatate, 200 mg = 1 cap(s), Oral, TID, X 7 day(s), # 21 cap(s), Refills(s) 0, [id number], 170.5, cm, 05/06/23 8:49:00 EST, Height/Length Dosing, 115.9, kg, 05/06/23 8:49:00 EST, Weight Dosing methylPREDNISolone, = 1 packet(s), Oral, (more content not included)... Normal [facility] Comment on above: Result Comment: Elec tronically Signed By: Radha Umaña\.br\Date and Time Signed: 05/06/23 08:59 EST Ambulatory Visit Summaryon 0 11-25-2022 Ambulatory Visit Summary MICHELLE, AV Ramirez :1985 Visit Date:11/25/2022 Ambulatory Visit Instructions Your [...] currently receiving treatment for. Well adult exam Normal Esteb[facility] Medicine Office/Clini c Noteon 11-25-2022 Family Medicine Office/Clinic Note Chief Complaint Pt here to establish care HPI Staff Av is a 37 year old male presenting to establish care Establish Care: History: Any previous diagnosis: Anxiety(situational) History of seeing any specialist: no When was your last doctors visit: 05/2022 Last provider: Dr meehan Any recent labs: within last year to two, [facility] Maintenance UTD: Colonoscopy: no PSA:no Acute: Current [...] Recorded measles/mumps/rubella virus vaccine 06/12/1995 Recorded Normal [facility] Comment on above: Result Comment: Elec tronically Signed By: Radha Umaña\.br\Date and Time Signed: 11/25/22 09:13 EDT [facility] 11-25-2022 Forms [id number] 0CD:127 Normal [facility] CBC AUTO DIFFon 06-01-2022 BASO # 0.0 103/ul Normal 0.0-0.1 [facility] Comment on above: Performed By: #### C BC #### [facility] [address] [place] [address] Dr. More Restrepo Basophils/100 WBC (Bld) 0.6 % Normal 0.2-2.0 [facility] Comment on above: Performed By: #### C BC #### [facility] [address] [place] [address] Dr. More Restrepo EO # 0.1 103/ul Normal 0.0-0.7 [facility] Comment on above: Performed By: #### C BC #### [facility] [address] [address] [address] More Restrepo Eosinophils/100 WBC (Bld) 1.3 % Normal 0.9-7.0 [facility] Comment on above: Performed By: #### C BC #### [facility] [address] [place] [address] Dr. More Restrepo Erythrocyte distribution width (RBC) [Ratio] 11.9 % Normal 11.0-15.0 [facility] Comment on above: Performed By: #### C BC #### [facility] [address] [place] [address] Dr. More Restrepo Hematocrit (Bld) [Volume fraction] 40.3 % Critically low 42.0-54.0 [facility] Comment on above: Performed By: #### C BC #### [facility] [address] [place] [address] Dr. More Restrepo Hemoglobin (Bld) [Mass/Vol] 13.8 g/dL Critically low 14.0-18.0 [facility] Comment on above: Performed By: #### C BC #### [facility] [address] [place] [address] Dr. More Restrepo IG # 0.05 10e3/ul Critically high 0.00-0.03 [facility] Comment on above: Performed By: #### C BC #### [facility] [address] [place] [address] Dr. More Restrepo IG % 0.7 % Critically high 0.0-0.5 [facility] Comment on above: Performed By: #### C BC #### [facility] [address] [place] [address] Dr. More Restrepo LYMPH # 3.4 103/ul Normal 1.2-3.8 [facility] Comment on above: Performed By: #### C BC #### [facility] [address] [place] [address] Dr. More Restrepo Lymphocytes/100 WBC (Bld) 47.4 % Normal 20.5-60.0 [facility] Comment on above: Performed By: #### C BC #### [facility] [address] [place] [address] Dr. More Restrepo MANUAL DIFF REQ NO Normal [facility] Comment on above: Performed By: #### C BC #### [facility] [address] [place] [address] Dr. More Restrepo MCH (RBC) [Entitic mass] 30.0 pg Normal 25.9-34.0 [facility] Comment on above: Performed By: #### C BC #### [facility] [address] [place] [address] Dr. More Restrepo MCHC (RBC) [Mass/Vol] 34.2 g/dL Normal 29.9-35.2 [facility] Comment on above: Performed By: #### C BC #### [facility] [address] [place] [address] Dr. More Restrepo MCV (RBC) [Entitic vol] 87.6 fL Normal 80.0-94.0 [facility] Comment on above: Performed By: #### C BC #### [facility] [address] [place] [address] Dr. More Restrepo MONO # 0.7 103/ul Normal 0.3-0.8 [facility] Comment on above: Performed By: #### C BC #### [facility] [address] [place] [address] Dr. More Restrepo Monocytes/100 WBC (Bld) 9.7 % Normal 1.7-12.0 [facility] Comment on above: Performed By: #### C BC #### [facility] [address] [place] [address] Dr. More Restrepo NEUT # 2.9 103/ul Normal 1.4-6.5 [facility] Comment on above: Performed By: #### C BC #### [facility] [address] [place] [address] Dr. More Restrepo Neutrophils/100 WBC (Bld) 40.3 % Critically low 43.0-75.0 [facility] Comment on above: Performed By: #### C BC #### [facility] [address] [place] [address] Dr. More Restrepo Platelet mean volume (Bld) [Entitic vol] 10.1 fL Normal 9.5-13.5 [facility] Comment on above: Performed By: #### C BC #### [facility] [address] [place] [address] Dr. More Restrepo PLT 301 103/ul Normal 150-450 [facility] Comment on above: Performed By: #### C BC #### [facility] [address] [place] [address] Dr. More Restrepo RBC 4.60 106/ul Critically low 4.70-6.10 [facility] Comment on above: Performed By: #### C BC #### [facility] [address] [place] [address] Dr. More Restrepo WBC 7.1 103/ul Normal 4.0-11.0 [facility] Comment on above: Performed By: #### C BC #### [facility] [address] [place] [address] HEAD WO CONon [...] HODA DUNHAM Date: 2022-06-01 08:16 Normal [facility] D-DIMERon 06-01-2022 D-DIMER 0.29 mg/L FEU Normal <=0.59 [facility] Comment on above: Performed By: #### D DIM #### [facility] [address] [place] [address] Dr. Moer Restrepo D-DIMER COMMENTS SEE BELOW Normal [facility] Comment on above: Result Comment: Incr eases [...] hospitalization. Performed By: #### D DIM #### [facility] [address] [place] [address] Dr. More Restrepo PROF CHEM 8 (BAS METB)on Anion gap [Moles/Vol] 18.3 mmol/L Normal [facility] Comment on above: Performed By: #### C RP, BMP #### [facility] [address] [place] [address] Dr. More Restrepo Calcium [Mass/Vol] 8.6 mg/dL Normal 8.5-10.1 [facility] Comment on above: Performed By: #### C RP, BMP #### [facility] [address] [place] [address] Dr. More Restrepo Chloride [Moles/Vol] 101 mmol/L Normal 98-107 [facility] Comment on above: Performed By: #### C RP, BMP #### [facility] [address] [place] [address] Dr. More Restrepo CO2 [Moles/Vol] 24.0 mmol/L Normal 21.0-32.0 [facility] Comment on above: Performed By: #### C RP, BMP #### [facility] [address] [place] [address] Dr. More Restrepo Creatinine [Mass/Vol] 1.11 mg/dL Normal 0.70-1.30 [facility] Comment on above: Performed By: #### C RP, BMP #### [facility] [address] [place] [address] Dr. More Restrepo EGFR-AF GERMAN >60 Normal >=60 [facility] Comment on above: Performed By: #### C RP, BMP #### [facility] [address] [address] [address] More Restrepo EGFR-NON AF GERMAN >60 Normal >=60 [facility] Comment on above: Performed By: #### C RP, BMP #### [facility] [address] [address] [address] More Restrepo Glucose [Mass/Vol] 153 mg/dL Critically high 74-106 T [facility] Comment on above: Performed By: #### C RP, BMP #### [facility] [address] [place] [address] Dr. More Restrepo Potassium [Moles/Vol] 3.3 mmol/L Critically low 3.5-5.1 [facility] Comment on above: Performed By: #### C RP, BMP #### [facility] [address] [place] [address] Dr. More Restrepo Sodium [Moles/Vol] 140 mmol/L Normal 136-145 [facility] Comment on above: Performed By: #### C RP, BMP #### [facility] [address] [place] [address] Dr. More Restrepo Urea nitrogen [Mass/Vol] 16.0 mg/dL Normal 7.0-18.0 [facility] Comment on above: Performed By: #### C RP, BMP #### [facility] [address] [place] [address] Dr. More Restrepo Urea nitrogen/Creatinin e [Mass ratio] 14.4 mg/mg Normal [facility] Comment on above: Performed By: #### C RP, BMP #### [facility] [address] [place] [address] Dr. More Restrepo TROPONIN, HIGH SENSITIVITYon 06-01-2022 HSTROP 5.9 pg/mL Normal 4.0-76.1 [facility] Comment on above: Result Comment: CUT- OFF POINTS HAVE BEEN ESTABLISHED BASED ON THE FOURTH UNIVERSAL DEFINITIONS OF MYOCARDIAL INFARCTION. THE UPPER REFERENCE LIMIT (URL) OF TROPONIN, DEFINED THE 99TH PERCENTILE OF cTnI DISTRIBUTION IN A REFERENCE POPULATION, HAS BEEN CONFIRMED THE DECISION THRESHOLD FOR [place] DIAGNOSIS. Performed By: #### C RP, BMP #### [facility] [address] [place] [address] Dr. More Restrepo XR CHEST 1 Von 06-01-2022 XR CHEST 1 V CHEST X-RAY, 1 VIEW HISTORY: Near syncope. COMPARISON: None. FINDINGS: The heart, kim, and mediastinum are unremarkable. The lungs are grossly clear. There are no pleural effusions. There is no pneumothorax. IMPRESSION: No evidence of acute cardiopulmonary disease. Electronically authenticated by: HODA DUNHAM Date: 2022-06-01 08:15 Normal [facility] CBC AUTO DIFFon 03-26-2022 BASO # 0.0 103/ul Normal 0.0-0.1 [facility] Comment on above: Performed By: #### C BC #### [facility] [address] [place] [address] Dr. More Restrepo Basophils/100 WBC (Bld) 0.3 % Normal 0.2-2.0 [facility] Comment on above: Performed By: #### C BC #### [facility] [address] [place] [address] Dr. More Restrepo EO # 0.1 103/ul Normal 0.0-0.7 [facility] Comment on above: Performed By: #### C BC #### [facility] [address] [place] [address] Dr. More Restrepo Eosinophils/100 WBC (Bld) 1.4 % Normal 0.9-7.0 [facility] Comment on above: Performed By: #### C BC #### [facility] [address] [place] [address] Dr. More Restrepo Erythrocyte distribution width (RBC) [Ratio] 11.7 % Normal 11.0-15.0 [facility] Comment on above: Performed By: #### C BC #### [facility] [address] [place] [address] Dr. More Restrepo Hematocrit (Bld) [Volume fraction] 42.6 % Normal 42.0-54.0 [facility] Comment on above: Performed By: #### C BC #### [facility] [address] [place] [address] Dr. More Restrepo Hemoglobin (Bld) [Mass/Vol] 14.3 g/dL Normal 14.0-18.0 [facility] Comment on above: Performed By: #### C BC #### [facility] [address] [place] [address] Dr. More Restrepo IG # 0.05 10e3/ul Critically high 0.00-0.03 [facility] Comment on above: Performed By: #### C BC #### [facility] [address] [place] [address] Dr. More Restrepo IG % 0.8 % Critically high 0.0-0.5 [facility] Comment on above: Performed By: #### C BC #### [facility] [address] [place] [address] Dr. More Restrepo LYMPH # 1.5 103/ul Normal 1.2-3.8 [facility] Comment on above: Performed By: #### C BC #### [facility] [address] [place] [address] Dr. More Restrepo Lymphocytes/100 WBC (Bld) 24.8 % Normal 20.5-60.0 [facility] Comment on above: Performed By: #### C BC #### [facility] [address] [place] [address] Dr. More Restrepo MANUAL DIFF REQ NO Normal [facility] Comment on above: Performed By: #### C BC #### [facility] [address] [place] [address] Dr. More Restrepo MCH (RBC) [Entitic mass] 29.6 pg Normal 25.9-34.0 [facility] Comment on above: Performed By: #### C BC #### [facility] [address] [place] [address] Dr. More Restrepo MCHC (RBC) [Mass/Vol] 33.6 g/dL Normal 29.9-35.2 [facility] Comment on above: Performed By: #### C BC #### [facility] [address] [place] [address] Dr. More Restrepo MCV (RBC) [Entitic vol] 88.2 fL Normal 80.0-94.0 [facility] Comment on above: Performed By: #### C BC #### [facility] [address] [place] [address] Dr. More Restrepo MONO # 0.5 103/ul Normal 0.3-0.8 [facility] Comment on above: Performed By: #### C BC #### [facility] [address] [place] [address] Dr. More Restrepo Monocytes/100 WBC (Bld) 8.8 % Normal 1.7-12.0 [facility] Comment on above: Performed By: #### C BC #### [facility] [address] [place] [address] Dr. More Restrepo NEUT # 3.8 103/ul Normal 1.4-6.5 [facility] Comment on above: Performed By: #### C BC #### [facility] [address] [place] [address] Dr. More Restrepo Neutrophils/100 WBC (Bld) 63.9 % Normal 43.0-75.0 [facility] Comment on above: Performed By: #### C BC #### [facility] [address] [place] [address] Dr. More Restrepo Platelet mean volume (Bld) [Entitic vol] 9.4 fL Critically low 9.5-13.5 [facility] Comment on above: Performed By: #### C BC #### [facility] [address] [place] [address] Dr. More Restrepo PLT 265 103/ul Normal 150-450 [facility] Comment on above: Performed By: #### C BC #### [facility] [address] [place] [address] Dr. More Restrepo RBC 4.83 106/ul Normal 4.70-6.10 [facility] Comment on above: Performed By: #### C BC #### [facility] [address] [place] [address] Dr. More Restrepo WBC 5.9 103/ul Normal 4.0-11.0 [facility] Comment on above: Performed By: #### C BC #### [facility] [address] [place] [address] Dr. More Restrepo CRPon 03-26-2022 CRP 0.5 mg/dL Normal <=1.0 [facility] Comment on above: Performed By: #### C RP, BMP #### [facility] [address] [place] [address] Dr. More Restrepo D-DIMERon 03-26-2022 D-DIMER 0.19 mg/L FEU Normal <=0.59 [facility] Comment on above: Performed By: #### D DIM #### [facility] [address] [place] [address] Dr. More Restrepo D-DIMER COMMENTS SEE BELOW Normal [facility] Comment on above: Result Comment: Incr [...] hospitalization. Performed By: #### D DIM #### [facility] [address] [place] [address] Dr. More Restrepo PROF CHEM 8 (BAS METB)on Anion gap [Moles/Vol] 8.6 mmol/L Normal [facility] Comment on above: Performed By: #### C RP, BMP #### [facility] [address] [place] [address] Dr. More Restrepo Calcium [Mass/Vol] 8.7 mg/dL Normal 8.5-10.[address] [facility] Comment on above: Performed By: #### C RP, BMP #### [facility] [address] [place] [address] Dr. More Restrepo Chloride [Moles/Vol] 104 mmol/L Normal 98-107 [facility] Comment on above: Performed By: #### C RP, BMP #### [facility] [address] [address] [address] More Restrepo CO2 [Moles/Vol] 29.4 mmol/L Normal 21.0-32.0 [facility] Comment on above: Performed By: #### C RP, BMP #### [facility] [address] [address] [address] More Restrepo Creatinine [Mass/Vol] 0.94 mg/dL Normal 0.70-1.30 [facility] Comment on above: Performed By: #### C RP, BMP #### [facility] [address] [address] [address] More Restrepo EGFR-AF GERMAN >60 Normal >=60 [facility] Comment on above: Performed By: #### C RP, BMP #### [facility] [address] [place] [address] Dr. More Restrepo EGFR-NON AF GERMAN >60 Normal >=60 [facility] Comment on above: Performed By: #### C RP, BMP #### [facility] [address] [place] [address] Dr. More Restrepo Glucose [Mass/Vol] 97 mg/dL Normal 74-106 [facility] Comment on above: Performed By: #### C RP, BMP #### [facility] [address] [place] [address] Dr. More Restrepo Potassium [Moles/Vol] 4.0 mmol/L Normal 3.5-5.1 [facility] Comment on above: Performed By: #### C RP, BMP #### [facility] [address] [address] [address] More Restrepo Sodium [Moles/Vol] 138 mmol/L Normal 136-[address] [facility] Comment on above: Performed By: #### C RP, BMP #### [facility] [address] [address] [address] More Restrepo Urea nitrogen [Mass/Vol] 12.0 mg/dL Normal 7.0-18.0 [facility] Comment on above: Performed By: #### C RP, BMP #### [facility] [address] [address] [address] More Restrepo Urea nitrogen/Creatinin e [Mass ratio] 12.8 mg/mg Normal [facility] Comment on above: Performed By: #### C RP, BMP #### [facility] [address] [place], [place] [address] Dr. More Restrepo SED RATE WESTERGRENon 2021 SED RATE 16 mm/hr Critically high <=15 [facility] Comment on above: Performed By: #### S EDR #### [facility] [address] [address] [address] More Restrepo XR ANKLE LT MIN [...] by: NILESH DELUCA Date: 2022-03-26 04:21 Normal [facility] COVID Quick Testingon 2020 Result Positive [facility] Other XR humerus LT*on 07-31-2020 XR humerus LT* [facility] [place] [address] [place] [address] XRay Report Signed Patient: Av Martinez MR#: [id number] : 1985 Acct:[id number] Age/Sex: 35 / F ADM Date: 07/31/20 Loc: XDCLY Room: Type: [facility] Attending Dr: Anna ROGER Ordering Provider: [...] Corbett Jr., M.D.07/31/2020 5:17 PM Dictation Location: [address] [place] [address] Transcribed By: [facility] 07/31/201716 Dictated By: Eber Corbett Jr, MD 07/31/201714 Signed By: 07/31/201716 [facility] Vital Signs Date Time Vital Sign Value Performing Clinician Facility 04-24-2023 13:45-0500 Body height 175.26 cm Kalyani Meraarney Other [facility] Other 04-24-2023 13:45-0500 Body mass index (BMI) [Ratio] 37.65 kg/m2 Kalyani Mavis Other [facility] Other 04-24-2023 13:45-0500 Body temperature 98.1 [degF] Kalyani Meraarney Other [facility] Other 04-24-2023 13:45-0500 Body weight 115.67 kg Kalyani Mavis Other [facility] Other 04-24-2023 13:45-0500 Respiratory rate 19 /min Kalyani Mavis Other [facility] Other 04-24-2023 13:45-0500 SaO2% (BldA) [Mass fraction] 96 % Kalyani Mavis Other [facility] Other 04-22-2021 13:15-0500 Body height 175.26 cm Ginger Gardner Other [facility] Other 04-22-2021 13:15-0500 Body mass index (BMI) [Ratio] 35.44 kg/m2 Ginger Gardner Other [facility] Other 04-22-2021 13:15-0500 Body temperature 97.6 [degF] Malenaethan Gardner Other [facility] Other 04-22-2021 13:15-0500 Body weight 108.86 kg Malenaethan Gardner Other [facility] Other 04-22-2021 13:15-0500 Respiratory rate 16 /min Ginger Kendra Other [facility] Other 04-22-2021 13:15-0500 SaO2% (BldA) [Mass fraction] 95 % Ginger Gardner Other [facility] Other 02-24-2021 14:15-0400 Body height 175.26 cm Nathalia Marie Other [facility] Other 02-24-2021 14:15-0400 Body mass index (BMI) [Ratio] 35.44 kg/m2 Nathalia Salazar Other [facility] Other 02-24-2021 14:15-0400 Body temperature 98.8 [degF] Nathalia Marie Other [facility] Other 02-24-2021 14:15-0400 Body weight 108.86 kg Nathalia Marie Other [facility] Other 02-24-2021 14:15-0400 SaO2% (BldA) [Mass fraction] 97 % Nathalia Salazar Other [facility] Other Encounters Encounter Date Encounter Type Care Provider Facility Start: 08-19-2023 End: 08-20-2023 ambulatory Radha L Adeline Facility:[facility] Start: 06-02-2023 End: 06-03-2023 ambulatory Radha L Adeline Facility:[facility] [facility] Start: 05-16-2023 End: 05-17-2023 ambulatory Radha L Adeline Facility:[facility] [facility] Start: 05-06-2023 End: 05-07-2023 ambulatory Radha L Adeline Facility:[facility] [facility] Start: 04-24-2023 End: 04-24-2023 ambulatory Kalyani Gamble Other [facility] Other Start: 04-24-2023 Office outpatient vi sit 25 minutes Kalyani Gamble [facility] Start: 11-25-2022 End: 11-26-2022 ambulatory Radha L Adeline Facility:[facility] [facility] Start: 11-22-2022 ambulatory Radha Adeline Facility:[facility] Start: 06-01-2022 End: 06-01-[address] CANDIDO MEEHAN Facility:[facility] Start: 03-26-2022 End: 03-26-[address] CANDIDO MEEHAN Facility:[facility] Start: 04-22-2021 End: 04-22-2021 ambulatory Ginger Gardner Other [facility] Other Start: 04-22-2021 Office outpatient vi sit 15 minutes Ginger Gardner [facility] [address] Start: 02-24-2021 Office outpatient vi sit 15 minutes Nathalia Salazar [facility] Payers Date Payer Category Payer Self-pay 1985 Unknown [id number] 2.16.84 [id number] 1985 Unknown [id number] 2.16.84 [id number] 1985 Unknown [id number] 2.16.8 [id number] 1985 Unknown [id number] 2.16.8 [id number] 1985 Unknown [id number] 2.16.8 [id number] 1985 Unknown [id number] 2.16.8 [id number] 1985 Unknown [id number] 2.16.8 [id number] 1985 Unknown [id number] 2.16.8 [id number] 1961 [facility] [id number] Social History Date Type Detail Facility Unknown if ever smoked [facility] Other Sex Assigned At Sex Assigned At Bir th [facility] Other Evaluation note 04-24-2023 Note Date & Type Note Facility 04-24-2023 Evaluation note Encounter Date Diagnosis Assessment Notes Mar, Viral upper respiratory illness (ICD-10 - J06.9) Illness appears to be viral in nature. Instructed patient to increase fluid intake and rest. OTC Flonase per label instructions. May OTC cold medication per label instructions. Follow up with PCP if symptoms do not improve or worsen. All questions and concerns addressed. [facility] Other Evaluation note 04-22-2021 Note Date & [...] Patient care instructions given in writting by [facility] document. [facility] Other Evaluation note 02-24-2021 Note Date & [...] Patient care instructions given in writting by [facility] document. [facility] Other History general Narrative - Reported Note Date & Type Note Facility History general Narrative - Reported Type Medical History anxiety [facility] Other Summary Purpose Family History No Family History Records FoundNo Family History Records FoundNo Family History Records Found Advance Directives No Advanced Directives Records FoundNo Advanced Directives Records FoundNo Advanced Directives Records Found Additional Source Comments INFORMATION SOURCE (unrecogn ized section and content) DATE CREATED AUTHOR 05/14/2021 [facility] DATE CREATED AUTHOR AUTHOR'S ORGANIZ ATION 06/04/[address] [facility] DATE CREATED AUTHOR AUTHOR'S ORGANIZ ATION 09/10/2023 [facility] REASON FOR VISIT (unrecogniz ed section and [...] BE BASED ON THE PRIMARY CLINICAL RECORDS. [employer] provides no warranty or guarantee of the accuracy or completeness of information in this document.
[2023-11-11 21:00] VITALS: BP 140/83
--- NOTE | 2023-11-11 21:00 | PC.NURSE ---
Patient called this RN down to room with c/o his head not feeling right and his vision changing while he was on his phone texting his and his boss. Patient was advised to stay off of his phone and practice brain rest as a concussion protocol. Lights in his room are dimmed also, and he put his ice pack back on his head. He says he feels well otherwise and as long as he is not looking at his phone. Pupils are PERRLA, 3cm. BP also improved at this time.
--- NOTE | 2023-11-11 21:04 | CT_ITS ---
The [address] [address] Patient Name: VILMA MARTINEZ MRN: [id number] date: 1985 Sex: M Assigned Patient Location: ER Current Patient Location: ER Accession/Order Number: [id number] Exam Date: 11/11/2023 21:30 Report Date: 11/11/2023 22:01 At the request of: NICK CHANG Procedure: CT head/brain wo con INDICATION: 38 years old; Male. Closed head trauma. TECHNIQUE: CT Head (ax/cor/sag reformats). Ionizing radiation dose reduced via iterative reconstruction/FBP blend and body size kV/mA adjustment. Comparison: Head CT dated 11/11/2023 at 8:20 PM. FINDINGS: POSTOPERATIVE CHANGES: None. BRAIN PARENCHYMA: No intraparenchymal or extra-axial hemorrhage. No mass effect. No midline shift or herniation. There is redemonstration of streak artifact overlying the inferomedial aspect of the frontal lobes. Normal lopez/white differentiation. VENTRICLES/EXTRA-AXIAL SPACES: Normal for patient's age. SINUSES/MASTOIDS: There is thickening within the superior aspect of the maxillary sinus on the right. Remaining sinuses are clear although the maxillary and ethmoid sinuses are not completely included in the examination. Mastoids and middle ears are clear. MSK: No displaced or depressed calvarial fracture. OTHER: No hyperdense intraluminal thrombus. CT/CT head/brain wo con IMPRESSION: 1. Beam hardening artifacts seen in the inferomedial aspect of the frontal lobes. 2. No acute intracranial abnormality. No hemorrhage or mass effect. Electronically authenticated by: EMILIA HAGER Date: 11/11/2023 22:01
== END 2023-11-11 22:38 | disposition home or self-care (01) ==
PROVIDERS: Emergency Provider Internal Medicine; PCP Nurse Practitioner
DX: S09.8XXA Other specified injuries of head, initial encounter (principal); W31.89XA Contact with other specified machinery, initial encounter
CPT/HCPCS: 70450; 72125; 99284

== ENCOUNTER 2024-04-06 07:01 | Outpatient (OUT) | payer BC, SELFPAY ==
--- OUTSIDE RECORDS SUMMARY | 2024-04-06 07:03 | XMS_ITS | CCD ---
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 Name Role Phone Nathalia Salazar Unavailable Ginger [...] (3 sources) Sulfamethoxazole / Trimethoprim Drug Allergy [facility] [employer] Other (2 sources) sulfaSALAzine Drug Allergy [facility] [employer] Other (1 source) Sulfamethoxazole / Trimethoprim Drug Allergy 01-25-[address] [facility] Repository (1 source) Sulfonamides (Antibiotic) Drug allergy (disorder) 01-25-[address] [facility] Repository (1 source) Substance with sulfonamide structure and antibacterial mechanism of action (substance) Drug allergy [facility] [employer] Other (1 source) Sulfonamides (Antibiotic); Translations: [sulfa drugs] Propensity to adverse reactions (disorder) [facility] Repository Medications Current Medications Medication Drug Class(es) Dates Sig (Normalized) Sig (Original) [id number] 200 actuat albuterol 0.09 mg/actuat metered dose [...] oral tablet (1 source) alpha-Adrenergic Agonist, Uncompetitive N-mqdxcw-F-aspartate Receptor Antagonist, Sigma-1 Agonist Start: 04-22-2021 take [...] Interpretation Reference Range Facility Ambulatory Visit Summaryon 1 Ambulatory Visit Summary Ambulatory Visit Summary AV MARTINEZ :1985 Visit Date:03/15/2024 Ambulatory Visit Instructions Your Diagnosis Bronchitis Wheezing on expiration Loud snoring Gasping for breath Daytime sleepiness BMI 39.0-39.9,adult Exogenous obesity Your Care Team Attending Physician - Radha Umaña Primary Care Physician - Radha Umaña This Is Your Medications List azithromycin (azithromycin 250 mg Tab) Discharge Vitals Temperature (Temporal Artery) 36.8 ?C Heart Rate (Peripheral) 78 Respiratory Rate 18 Blood Pressure 124/84 Height 170.0 cm Height 67 in Weight 114.7 kg Weight 252.34 lb BMI 39.69 Medications What How Much When Instructions Unchanged azithromycin (azithromycin 250 mg Tab) 1 Packets By Mouth As Directed Duration: 5 Days as directed on package labeling Pickup at [facility]/pharmacy #[id number] Pharmacy Information [facility]/pharmacy #[id number]: [address], [place] [id number] [phone] Medications and Immunizations Administered Given Kenalog-40, 40 mg, IntraARTICULAR. For: Bronchitis, Wheezing on expiration, Loud snoring, Gasping for breath, Daytime sleepiness Allergies sulfa drugs (Hives) Problems Ongoing - Any problem that you are currently receiving treatment for. 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 Please share your experience with us by completing your survey. We appreciate your feedback and thank you for choosing us for your care. Normal [facility] Family Medicine Office/Clini c Noteon 03-15-2024 Family Medicine Office/Clinic Note Family Medicine Office/Clinic Note [facility] Staff Av is a 38 year old male presenting with sore throat congestion, and mucus Onset: started 4 days ago sinus congestion- yes swollen nodes- no red/ white spots- no fever/chills- no body aches- no nausea/ vomiting- no cough- yes ear pain no allergies- he never did before medication taken- nothing Coughing: yes SOB- yes he feels to see if he needs a sleep study done He said when he swallows it feels like it is swollen History of Present Illness pt presents today with URI symptoms. also c/o symptoms of sleep apnea Review of Systems PHQ Score Initial Depression Screen Score: 0 SCORE Physical Exam Vitals & Measurements T: 36.8 ?C(Temporal Artery) HR: 78(Peripheral) RR: 18 BP: 124/84 SpO2: 97% HT: 67 in HT: 170.0 cm WT: 114.7 kg WT: 252.34 lb BMI: 39.69 General: alert, no acute distress ENMT: oral mucosa moist, no pharyngeal erythema or exudate Cardiovascular: regular rate and rhythm, normal peripheral perfusion Respiratory: Lungs CTA, respirations non labored Extremities: no deformity, no trauma Neurological: oriented x 4, LOC appropriate for age, CN II-XII intact, motor strength equal & normal bilaterally, speech normal Assessment/Plan 1. Bronchitis (J40: Bronchitis, not specified as acute or chronic) pt c/o cough, dry nose, shortness of breath. will send in antibitoic. kenlog given in office. RTC as needed 2. Wheezing on expiration (R06.2: Wheezing) will give kenalog in office today 3. Loud snoring (R06.83: Snoring) will order home sleep study 4. Gasping for breath (R06.89: Other abnormalities of breathing) see above 5. Daytime sleepiness (R40.0: Somnolence) see above 6. BMI 39.0-39.9,adult (Z68.39: Body mass index [BMI] 39.0-39.9, adult) BMI education given Ordered: meloxicam, 15 mg = 1 tab(s), Oral, Daily, # 30 tab(s), Refills(s) 0, Pharmacy: [facility]/pharmacy #[id number], 170, cm, 08/19/23 14:58:00 EDT, Height/Length Dosing, 114.1, kg, 08/19/23 14:58:00 EDT, Weight Dosing 7. Exogenous obesity (E66.09: Other obesity due to excess calories) see above Orders: albuterol, 2 puff(s), Inhalation, q6hr, 8.5 gm, Refill(s) 0, [facility]/pharmacy #[id number], 170, cm, 06/02/23 14:44:00 EST, Height/Length Dosing, 112, kg, 06/02/23 14:44:00 EST, Weight Dosing azithromycin, = 1 packet(s), Oral, As Directed, as directed on package labeling, X 5 day(s), # 6 tab(s), Refills(s) 0, Pharmacy: [facility]/pharmacy #[id number], 170, cm, 03/15/24 15:03:00 EDT, Height/Length Dosing, 114.7, kg, 03/15/24 15:03:00 EDT, Weight Dosing Follow-up No qualifying data available Problem List/Past Medical History Ongoing 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 Diabetes mellitus type 2: Mother. Hypertension: Mother and Grandparent. Hyperthyroidism: Grandparent. Immunizations Vaccine Date Status influenza virus vaccine, inactivated 04/12/2013 Recorded hepatitis B pediatric vaccine 08/02/2002 Recorded poliovirus vaccine, inactivated 04/30/2002 Recorded DTaP, unspecified formulation 04/30/2002 Recorded Td(adult) unspecified formulation 01/08/2002 Recorded hepatitis B pediatric vaccine 01/08/2002 Recorded measles/mumps/rubella virus vaccine 06/12/1995 Recorded Normal [facility] Comment on above: Result Comment: Elec tronically Signed By: Radha Umaña\.br\Date and Time Signed: 03/15/24 15:20 EDT ED Note-Physicianon 11-12-19 ED Note-Physician [id number]#1.00 TIFF Normal [facility] RAD - CT Reporton 11-12-2023 RAD - CT Report [id number]#1.0 0TIFF Normal [facility] RAD - CT Report [id number]#1.0 0TIFF Normal [facility] RAD - CT Report [id number]#1.00 TIFF Normal [facility] Formson 09-09-2023 Forms [id number]#1.0 0TIFF [facility] Ambulatory Visit Summaryon 0 08-19-2023 Ambulatory Visit Summary GIANFRANCO MARTINEZSAEID Ramirez :1985 Visit Date:08/19/2023 Ambulatory Visit Instructions Your [...] choosing us for your care. Daniel [facility] Medicine Office/Clini c Noteon 08-19-2023 Family Medicine Office/Clinic Note HPI Staff Av is a 38 year old male presenting for ER follow up ER followup: Hospital: [facility] Visit date: 08/15/23 Symptoms the patient [...] Daily, # 30 tab(s), Refills(s) 0, Pharmacy: [facility]/pharmacy #[id number], 170, cm, 08/19/23 14:58:00 EDT, Height/Length Dosing, 114.1, kg, 08/19/23 14:58:00 EDT, Weight Dosing methylPREDNISolone, = 1 packet(s), Oral, As Directed, as directed on package labeling, X 6 day(s), # 21 tab(s), Refills(s) 0, Pharmacy: [facility]/pharmacy #[id number], 170, cm, 08/19/23 14:58:00 EDT, Height/Length Dosing, 114.1, kg, 08/19/23 14:58:00 EDT, Weight Dosing 2. BMI 39.0-39.9,adult (Z68.39: Body mass index [BMI] 39.0-39.9, adult) BMI education complete Ordered: meloxicam, 15 mg = 1 tab(s), Oral, Daily, # 30 tab(s), Refills(s) 0, Pharmacy: [facility]/pharmacy #[id number], 170, cm, 08/19/23 14:58:00 EDT, Height/Length Dosing, 114.1, kg, 08/19/23 14:58:00 EDT, Weight Dosing methylPREDNISolone, = 1 packet(s), Oral, As Directed, as directed on package labeling, X 6 day(s), # 21 tab(s), Refills(s) 0, [id number] 170, cm, 08/19/23 14:58:00 EDT, Height/Length Dosing, 114.1, kg, 08/19/23 14:58:00 EDT, Weight Dosing 3. Non-smoker (Z78.9: Other specified health status) continue not smoking Ordered: meloxicam, 15 mg = 1 tab(s), Oral, Daily, # 30 tab(s), Refills(s) 0, [id number] 170, cm, 08/19/23 14:58:00 EDT, Height/Length Dosing, 114.1, kg, 08/19/23 14:58:00 EDT, Weight Dosing methylPREDNISolone, = 1 packet(s), Oral, As Directed, as directed on package labeling, X 6 day(s), # 21 tab(s), Refills(s) 0, Pharmacy: [facility]/pharmacy #[id number], 170, cm, 08/19/23 14:58:00 EDT, Height/Length [...] Recorded measles/mumps/rubella virus vaccine 06/12/1995 Recorded Normal [facility] Comment on above: Result Comment: Elec tronically Signed By: Radha Umaña\.br\Date and Time Signed: 08/19/23 15:37 EDT ED Note-Physicianon 08-18-19 ED Note-Physician [id number]#1.0 0TIFF [facility] RAD - MISCon 08-18-2023 RAD - MISC [id number]#1.0 0TIFF [facility] Ambulatory Visit Summaryon 0 06-02-2023 Ambulatory Visit [...] choosing us for your care. Normal [facility] Family Medicine Office/Clini c Noteon 06-02-2023 [...] BID, # 12 gram, Refills(s) 0, Pharmacy: [facility]/pharmacy #[id number], 170.5, cm, 05/16/23 14:37:00 EST, Height/Length Dosing, 113.2, kg, 05/16/23 14:37:00 EST, Weight Dosing 3. BMI 38.0-38.9,adult (Z68.38: Body mass index [BMI] 38.0-38.9, adult) BMI education complete Ordered: albuterol, 2 puff(s), Inhalation, q6hr, 8.5 gm, Refill(s) 0, [facility]/pharmacy #[id number], 170, cm, 06/02/23 14:44:00 EST, Height/Length Dosing, 112, kg, 06/02/23 14:44:00 EST, Weight Dosing azithromycin, = 1 packet(s), Oral, As Directed, as directed on package labeling, X 5 day(s), # 6 tab(s), Refills(s) 0, Pharmacy: [facility]/pharmacy #[id number], 170, cm, 06/02/23 14:44:00 EST, Height/Length Dosing, 112, kg, 06/02/23 14:44:00 EST, Weight Dosing methylPREDNISolone, = 1 packet(s), Oral, As Directed, as directed on package labeling, X 6 day(s), # 21 tab(s), Refills(s) 0, Pharmacy: [facility]/pharmacy #[id number], 170, cm, 06/02/23 14:44:00 EST, Height/Length Dosing, 112, kg, 06/02/23 14:44:00 EST, Weight Dosing 4. Non-smoker (Z78.9: Other specified health status) continue not smoking Ordered: albuterol, 2 puff(s), Inhalation, q6hr, 8.5 gm, Refill(s) 0, [facility]/pharmacy #[id number], 170, cm, 06/02/23 14:44:00 EST, Height/Length Dosing, 112, kg, 06/02/23 14:44:00 EST, Weight Dosing azithromycin, = 1 packet(s), Oral, As Directed, as directed on package labeling, X 5 day(s), # 6 tab(s), Refills(s) 0, Pharmacy: [facility]/pharmacy #[id number], 170, cm, 06/02/23 14:44:00 EST, Height/Length Dosing, 112, kg, 06/02/23 14:44:00 EST, Weight Dosing fluticasone, = 2 puff(s), Inhalation, BID, # 12 gram, Refills(s) 0, Pharmacy: [facility]/pharmacy #[id number], 170.5, cm, 05/16/23 14:37:00 EST, Height/Length Dosing, 113.2, kg, 05/16/23 14:37:00 EST, Weight Dosing methylPREDNISolone, = 1 packet(s), Oral, As Directed, as directed on package labeling, X 6 day(s), # 21 tab(s), Refills(s) 0, [id number], 170, cm, 06/02/23 14:44:00 EST, Height/Length [...] DTaP, unspecified f (more content not included)... [facility] Comment on above: Result Comment: Elec tronically Signed By: Radha Umaña\.br\Date and Time Signed: 06/02/23 15:20 EST Consenton 05-20-2023 Consent [id number]#1.0 0TIFF [facility] Physician Orderon 05-20-2023 Physician Order [id number]#1.0 0TIFF [facility] RAD - MISCon 05-20-2023 RAD - MISC [id number]#1.0 0TIFF [facility] Ambulatory Visit Summaryon 1 07-17-2022 Ambulatory [...] choosing us for your care. [facility] Medicine Office/Clini c Noteon 05-16-2023 Family Medicine [...] xray order provided. to be done at [facility]. all questions answered. RTC as needed Ordered: fluticasone, = 2 puff(s), Inhalation, BID, # 12 gram, Refills(s) 0, Pharmacy: [facility]/pharmacy #[id number], 170.5, cm, 05/16/23 14:37:00 EST, Height/Length Dosing, 113.2, kg, 05/16/23 14:37:00 EST, Weight Dosing levofloxacin, 500 mg = 1 tab(s), Oral, q24hr, X 7 day(s), # 7 tab(s), Refills(s) 0, [id number], 170.5, cm, 05/16/23 14:37:00 EST, Height/Length [...] BID, # 12 gram, Refills(s) 0, [id number], 170.5, cm, 05/16/23 14:37:00 EST, Height/Length Dosing, 113.2, kg, 05/16/23 14:37:00 EST, Weight Dosing levofloxacin, 500 mg = 1 tab(s), Oral, q24hr, X 7 day(s), # 7 tab(s), Refills(s) 0, [id number], 170.5, cm, 05/16/23 14:37:00 EST, Height/Length [...] BID, # 12 gram, Refills(s) 0, Pharmacy: [facility]/pharmacy #[id number], 170.5, cm, 05/16/23 14:37:00 EST, Height/Length Dosing, 113.2, kg, 05/16/23 14:37:00 EST, Weight Dosing levofloxacin, 500 mg = 1 tab(s), Oral, q24hr, X 7 day(s), # 7 tab(s), Refills(s) 0, [id number], 170.5, cm, 05/16/23 14:37:00 EST, Height/Length Dosing, 113.2, kg, 05/16/23 14:37:00 EST, Weight Dosing triamcinolone, 60 mg = 1.5 mL, Injection, IntraMuscular, Once, Stop date 05/16/23 14:52:00 EST, Routine, Start date 05/16/23 14:52:00 EST, 05/16/23 14:52:00 EST 4. Non-smoker (Z78.9: Other specified health status) continue not smoking Ordered: fluticasone, = 2 puff(s), Inhalation, BID, # 12 gram, Refills(s) 0, [id number], 170.5, cm, 05/16/23 14:37:00 EST, Height/Length Dosing, 113.2, kg, 05/16/23 14:37:00 EST, Weight Dosing levofloxacin, 500 mg = 1 tab(s), Oral, q24hr, X 7 day(s), # 7 tab(s), Refills(s) 0, [id number], 170.5, cm, 05/16/23 14:37:00 EST, Height/Length [...] No., 11/25/2022 Tob (more content not included)... [facility] Comment on above: Result Comment: Elec [...] you for choosing us for your care. [facility] Family Medicine Office/Clini c Noteon 05-06-2023 [...] day(s), # 6 tab(s), Refills(s) 0, Pharmacy: [facility]/pharmacy #[id number], 170.5, cm, 05/06/23 8:49:00 EST, Height/Length Dosing, 115.9, kg, 05/06/23 8:49:00 EST, Weight Dosing benzonatate, 200 mg = 1 cap(s), Oral, TID, X 7 day(s), # 21 cap(s), Refills(s) 0, Pharmacy: [facility]/pharmacy #[id number], 170.5, cm, 05/06/23 8:49:00 EST, Height/Length Dosing, 115.9, kg, 05/06/23 8:49:00 EST, Weight Dosing methylPREDNISolone, = 1 packet(s), Oral, As Directed, as directed on package labeling, X 6 day(s), # 21 tab(s), Refills(s) 0, [id number], 170.5, cm, 05/06/23 8:49:00 EST, Height/Length Dosing, 115.9, kg, 05/06/23 8:49:00 EST, Weight Dosing 2. Cough (R05.9: Cough, unspecified) medrol dose pack and tessalon pearls sent Ordered: azithromycin, = 1 packet(s), Oral, As Directed, as directed on package labeling, X 5 day(s), # 6 tab(s), Refills(s) 0, [id number], 170.5, cm, 05/06/23 8:49:00 EST, Height/Length Dosing, 115.9, kg, 05/06/23 8:49:00 EST, Weight Dosing benzonatate, 200 mg = 1 cap(s), Oral, TID, X 7 day(s), # 21 cap(s), Refills(s) 0, [id number], 170.5, cm, 05/06/23 8:49:00 EST, Height/Length Dosing, 115.9, kg, 05/06/23 8:49:00 EST, Weight Dosing methylPREDNISolone, = 1 packet(s), Oral, As Directed, as directed on package labeling, X 6 day(s), # 21 tab(s), Refills(s) 0, [id number], 170.5, cm, 05/06/23 8:49:00 EST, Height/Length Dosing, 115.9, kg, 05/06/23 8:49:00 EST, Weight Dosing 3. Nasal congestion (R09.81: Nasal congestion) see above Ordered: azithromycin, = 1 packet(s), Oral, As Directed, as directed on package labeling, X 5 day(s), # 6 tab(s), Refills(s) 0, [id number], 170.5, cm, 05/06/23 8:49:00 EST, Height/Length Dosing, 115.9, kg, 05/06/23 8:49:00 EST, Weight Dosing benzonatate, 200 mg = 1 cap(s), Oral, TID, X 7 day(s), # 21 cap(s), Refills(s) 0, [id number], 170.5, cm, 05/06/23 8:49:00 EST, Height/Length Dosing, 115.9, kg, 05/06/23 8:49:00 EST, Weight Dosing methylPREDNISolone, = 1 packet(s), Oral, As Directed, as directed on package labeling, X 6 day(s), # 21 tab(s), Refills(s) 0, [id number], 170.5, cm, 05/06/23 8:49:00 EST, Height/Length Dosing, 115.9, kg, 05/06/23 8:49:00 EST, Weight Dosing 4. Bronchitis (J40: Bronchitis, not specified as acute or chronic) see above Ordered: azithromycin, = 1 packet(s), Oral, As Directed, as directed on package labeling, X 5 day(s), # 6 tab(s), Refills(s) 0, [id number], 170.5, cm, 05/06/23 8:49:00 EST, Height/Length Dosing, 115.9, kg, 05/06/23 8:49:00 EST, Weight Dosing benzonatate, 200 mg = 1 cap(s), Oral, TID, X 7 day(s), # 21 cap(s), Refills(s) 0, Pharmacy: [facility] #[id number], 170.5, cm, 05/06/23 8:49:00 EST, Height/Length Dosing, 115.9, kg, 05/06/23 8:49:00 EST, Weight Dosing methylPREDNISolone, = 1 packet(s), Oral, (more content not included)... Normal [facility] Comment on above: Result Comment: Elec tronically Signed By: Radha Umaña\.br\Date and Time Signed: 05/06/23 08:59 EST CBC AUTO DIFFon 06-01-2022 BASO # 0.0 103/ul Normal 0.0-0.[address] [facility] Comment on above: Performed By: #### C BC #### [facility] [address] [address] [address] More Restrepo Basophils/100 WBC (Bld) 0.6 % Normal 0.2-2.[address] [facility] Comment on above: Performed By: #### C BC #### [facility] [address] [address] [address] More Restrepo EO # 0.1 103/ul Normal 0.0-0.7 [facility] Comment on above: Performed By: #### C BC #### [facility] [address] [address] [address] More Restrepo Eosinophils/100 WBC (Bld) 1.3 % Normal 0.9-7.[address] [facility] Comment on above: Performed By: #### C BC #### [facility] [address] [address] [address] More Resterpo Erythrocyte distribution width (RBC) [Ratio] 11.9 % Normal 11.0-15.[address] [facility] Comment on above: Performed By: #### C BC #### [facility] [address] [address] [address] More Restrepo Hematocrit (Bld) [Volume fraction] 40.3 % Critically low 42.0-54.[address] [facility] Comment on above: Performed By: #### C BC #### [facility] [address] [address] [address] More Restrepo Hemoglobin (Bld) [Mass/Vol] 13.8 g/dL Critically low 14.0-18.[address] [facility] Comment on above: Performed By: #### C BC #### [facility] [address] [address] [address] More Restrepo IG # 0.05 10e3/ul Critically high 0.00-0.03 [facility] Comment on above: Performed By: #### C BC #### [facility] [address] [address] [address] More Restrepo IG % 0.7 % Critically high 0.0-0.5 [facility] Comment on above: Performed By: #### C BC #### [facility] [address] [place] [address] Dr. More Restrepo LYMPH # 3.4 103/ul Normal 1.2-3.8 [facility] Comment on above: Performed By: #### C BC #### [facility] [address] [place] [address] Dr. More Restrepo Lymphocytes/100 WBC (Bld) 47.4 % Normal 20.5-60.[address] [facility] Comment on above: Performed By: #### C BC #### [facility] [address] [place] [address] Dr. More Restrepo MANUAL DIFF REQ NO Normal [facility] Comment on above: Performed By: #### C BC #### [facility] [address] [place] [address] Dr. More Restrepo MCH (RBC) [Entitic mass] 30.0 pg Normal 25.9-34.[address] [facility] Comment on above: Performed By: #### C BC #### [facility] [address] [place] [address] Dr. More Restrepo MCHC (RBC) [Mass/Vol] 34.2 g/dL Normal 29.9-35.[address] [facility] Comment on above: Performed By: #### C BC #### [facility] [address] [place] [address] Dr. More Restrepo MCV (RBC) [Entitic vol] 87.6 fL Normal 80.0-94.[address] [facility] Comment on above: Performed By: #### C BC #### [facility] [address] [place] [address] Dr. More Restrepo MONO # 0.7 103/ul Normal 0.3-0.8 [facility] Comment on above: Performed By: #### C BC #### [facility] [address] [place] [address] Dr. More Restrepo Monocytes/100 WBC (Bld) 9.7 % Normal 1.7-12.[address] [facility] Comment on above: Performed By: #### C BC #### [facility] [address] [place] [address] Dr. More Restrepo NEUT # 2.9 103/ul Normal 1.4-6.[address] [facility] Comment on above: Performed By: #### C BC #### [facility] [address] [place] [address] Dr. More Restrepo Neutrophils/100 WBC (Bld) 40.3 % Critically low 43.0-75.[address] [facility] Comment on above: Performed By: #### C BC #### [facility] [address] [place] [address] Dr. More Restrepo Platelet mean volume (Bld) [Entitic vol] 10.1 fL Normal 9.5-13.[address] [facility] Comment on above: Performed By: #### C BC #### [facility] [address] [place] [address] Dr. More Restrepo PLT 301 103/ul Normal 150-450 [facility] Comment on above: Performed By: #### C BC #### [facility] [address] [place] [address] Dr. More Restrepo RBC 4.60 106/ul Critically low 4.70-6.10 [facility] Comment on above: Performed By: #### C BC #### [facility] [address] [place] [address] Dr. More Restrepo WBC 7.1 103/ul Normal 4.0-11.[address] [facility] Comment on above: Performed By: #### C BC #### [facility] [address] [place] [address] HEAD WO CONon [...] by: HODA DUNHAM Date: 2022-06-01 08:[address] [facility] D-DIMERon 06-01-2022 D-DIMER 0.29 mg/L FEU Normal <=0.59 [facility] Comment on above: Performed By: #### D DIM #### [facility] [address] [place] [address] Dr. More Restrepo D-DIMER COMMENTS SEE BELOW Normal [facility] Comment on above: Result Comment: Incr [...] hospitalization. Performed By: #### D DIM #### [facility] [address] [place] [address] Dr. More Restrepo PROF CHEM 8 (BAS METB)on Anion gap [Moles/Vol] 18.3 mmol/L Normal [facility] [address] [facility] Comment on above: Performed By: #### C RP, BMP #### [facility] [address] [place] [address] Dr. More Restrepo Calcium [Mass/Vol] 8.6 mg/dL Normal 8.5-10.1 [facility] Comment on above: Performed By: #### C RP, BMP #### [facility] [address] [place] [address] Dr. More Restrepo Chloride [Moles/Vol] 101 mmol/L Normal 98-[address] [facility] Comment on above: Performed By: #### C RP, BMP #### [facility] [address] [place] [address] Dr. More Restrepo CO2 [Moles/Vol] 24.0 mmol/L Normal 21.0-32.0 [facility] Comment on above: Performed By: #### C RP, BMP #### [facility] [address] [place] [address] Dr. More Restrepo Creatinine [Mass/Vol] 1.11 mg/dL Normal 0.70-1.[address] [facility] Comment on above: Performed By: #### C RP, BMP #### [facility] [address] [address] [address] More Restrepo EGFR-AF FRENCH >60 Normal >=60 [facility] Comment on above: Performed By: #### C RP, BMP #### [facility] [address] [place] [address] Dr. More Restrepo EGFR-NON AF FRENCH >60 Normal >=[address] [facility] Comment on above: Performed By: #### C RP, BMP #### [facility] [address] [place] [address] Dr. More Restrepo Glucose [Mass/Vol] 153 mg/dL Critically high 74-[address] [facility] Comment on above: Performed By: #### C RP, BMP #### [facility] [address] [place] [address] Dr. More Restrepo Potassium [Moles/Vol] 3.3 mmol/L Critically low 3.5-5.[address] [facility] Comment on above: Performed By: #### C RP, BMP #### [facility] [address] [place] [address] Dr. More Restrepo Sodium [Moles/Vol] 140 mmol/L Normal 136-145 [facility] Comment on above: Performed By: #### C RP, BMP #### [facility] [address] [place] [address] Dr. More Restrepo Urea nitrogen [Mass/Vol] 16.0 mg/dL Normal 7.0-18.[address] [facility] Comment on above: Performed By: #### C RP, BMP #### [facility] [address] [place] [address] Dr. More Restrepo Urea nitrogen/Creatinin e [Mass ratio] 14.4 mg/mg Normal [facility] Comment on above: Performed By: #### C RP, BMP #### [facility] [address] [place] [address] Dr. More Restrepo TROPONIN, HIGH SENSITIVITYon 06-01-2022 HSTROP 5.9 pg/mL Normal 4.0-76.[address] [facility] Comment on above: Result Comment: CUT- OFF POINTS HAVE BEEN ESTABLISHED BASED ON THE FOURTH UNIVERSAL DEFINITIONS OF MYOCARDIAL INFARCTION. THE UPPER REFERENCE LIMIT (URL) OF TROPONIN, DEFINED THE 99TH PERCENTILE OF cTnI DISTRIBUTION IN A REFERENCE POPULATION, HAS BEEN CONFIRMED THE DECISION THRESHOLD FOR CT DIAGNOSIS. Performed By: #### C RP, BMP #### [facility] [address] [place] [address] Dr. More Restrepo XR CHEST 1 Von 06-01-2022 XR CHEST 1 V CHEST X-RAY, 1 VIEW HISTORY: Near syncope. COMPARISON: None. FINDINGS: The heart, kim, and mediastinum are unremarkable. The lungs are grossly clear. There are no pleural effusions. There is no pneumothorax. IMPRESSION: No evidence of acute cardiopulmonary disease. Electronically authenticated by: HODA DUNHAM Date: 2022-06-01 08:15 Normal [facility] CBC AUTO DIFFon 03-26-2022 BASO # 0.0 103/ul Normal 0.0-0.[address] [facility] Comment on above: Performed By: #### C BC #### [facility] [address] [place] [address] Dr. More Restrepo Basophils/100 WBC (Bld) 0.3 % Normal 0.2-2.0 [facility] Comment on above: Performed By: #### C BC #### [facility] [address] [place] [address] Dr. More Restrepo EO # 0.1 103/ul Normal 0.0-0.7 [facility] Comment on above: Performed By: #### C BC #### [facility] [address] [place] [address] Dr. More Restrepo Eosinophils/100 WBC (Bld) 1.4 % Normal 0.9-7.0 [facility] Comment on above: Performed By: #### C BC #### [facility] [address] [place] [address] Dr. More Restrepo Erythrocyte distribution width (RBC) [Ratio] 11.7 % Normal 11.0-15.[address] [facility] Comment on above: Performed By: #### C BC #### [facility] [address] [place] [address] Dr. More Restrepo Hematocrit (Bld) [Volume fraction] 42.6 % Normal 42.0-54.[address] [facility] Comment on above: Performed By: #### C BC #### [facility] [address] [place] [address] Dr. More Restrepo Hemoglobin (Bld) [Mass/Vol] 14.3 g/dL Normal 14.0-18.[address] [facility] Comment on above: Performed By: #### C BC #### [facility] [address] [place] [address] Dr. More Restrepo IG # 0.05 10e3/ul Critically high 0.00-0.03 [facility] Comment on above: Performed By: #### C BC #### [facility] [address] [place] [address] Dr. More Restrepo IG % 0.8 % Critically high 0.0-0.5 [facility] Comment on above: Performed By: #### C BC #### [facility] [address] [place] [address] Dr. More Restrepo LYMPH # 1.5 103/ul Normal 1.2-3.[address] [facility] Comment on above: Performed By: #### C BC #### [facility] [address] [place] [address] Dr. More Restrepo Lymphocytes/100 WBC (Bld) 24.8 % Normal 20.5-60.[address] [facility] Comment on above: Performed By: #### C BC #### [facility] [address] [place] [address] Dr. More Restrepo MANUAL DIFF REQ NO Normal [facility] Comment on above: Performed By: #### C BC #### [facility] [address] [address] [address] More Restrepo MCH (RBC) [Entitic mass] 29.6 pg Normal 25.9-34.0 [facility] Comment on above: Performed By: #### C BC #### [facility] [address] [place] [address] Dr. More Restrepo MCHC (RBC) [Mass/Vol] 33.6 g/dL Normal 29.9-35.2 [facility] Comment on above: Performed By: #### C BC #### [facility] [address] [place] [address] Dr. More Restrepo MCV (RBC) [Entitic vol] 88.2 fL Normal 80.0-94.0 [facility] Comment on above: Performed By: #### C BC #### [facility] [address] [place] [address] Dr. More Restrepo MONO # 0.5 103/ul Normal 0.3-0.8 [facility] Comment on above: Performed By: #### C BC #### [facility] [address] [place] [address] Dr. More Restrepo Monocytes/100 WBC (Bld) 8.8 % Normal 1.7-12.[address] [facility] Comment on above: Performed By: #### C BC #### [facility] [address] [place] [address] Dr. More Restrepo NEUT # 3.8 103/ul Normal 1.4-6.5 [facility] Comment on above: Performed By: #### C BC #### [facility] [address] [place] [address] Dr. More Restrepo Neutrophils/100 WBC (Bld) 63.9 % Normal 43.0-75.0 [facility] Comment on above: Performed By: #### C BC #### [facility] [address] [place] [address] Dr. More Restrepo Platelet mean volume (Bld) [Entitic vol] 9.4 fL Critically low 9.5-13.5 [facility] Comment on above: Performed By: #### C BC #### [facility] [address] [place] [address] Dr. More Restrepo PLT 265 103/ul Normal 150-450 [facility] Comment on above: Performed By: #### C BC #### [facility] [address] [place] [address] Dr. More Restrepo RBC 4.83 106/ul Normal 4.70-6.10 [facility] Comment on above: Performed By: #### C BC #### [facility] [address] [place] [address] Dr. More Restrepo WBC 5.9 103/ul Normal 4.0-11.[address] [facility] Comment on above: Performed By: #### C BC #### [facility] [address] [place] [address] Dr. More Restrepo CRPon 03-26-2022 CRP 0.5 mg/dL Normal <=1.[address] [facility] Comment on above: Performed By: #### C RP, BMP #### [facility] [address] [place] [address] Dr. More Restrepo D-DIMERon 03-26-2022 D-DIMER 0.19 mg/L FEU Normal <=0.59 [facility] Comment on above: Performed By: #### D DIM #### [facility] [address] [place] [address] Dr. More Restrepo D-DIMER COMMENTS SEE BELOW Normal [facility] [place] Comment on above: Result Comment: Incr eases [...] hospitalization. Performed By: #### D DIM #### [facility] [address] [place] [address] Dr. More Restrepo PROF CHEM 8 (BAS METB)on Anion gap [Moles/Vol] 8.6 mmol/L Normal [facility] Comment on above: Performed By: #### C RP, BMP #### [facility] [address] [place] [address] Dr. More Restrepo Calcium [Mass/Vol] 8.7 mg/dL Normal 8.5-10.1 [facility] Comment on above: Performed By: #### C RP, BMP #### [facility] [address] [place] [address] Dr. More Restrepo Chloride [Moles/Vol] 104 mmol/L Normal 98-107 [facility] Comment on above: Performed By: #### C RP, BMP #### [facility] [address] [place] [address] Dr. More Restrepo CO2 [Moles/Vol] 29.4 mmol/L Normal 21.0-32.0 [facility] [place] Comment on above: Performed By: #### C RP, BMP #### [facility] [address] [place] [address] Dr. More Restrepo Creatinine [Mass/Vol] 0.94 mg/dL Normal 0.70-1.30 [facility] Comment on above: Performed By: #### C RP, BMP #### [facility] [address] [place] [address] Dr. More Restrepo EGFR-AF FRENCH >60 Normal >=60 [facility] [place] Comment on above: Performed By: #### C RP, BMP #### [facility] [address] [place] [address] Dr. More Restrepo EGFR-NON AF FRENCH >60 Normal >=60 [facility] Comment on above: Performed By: #### C RP, BMP #### [facility] [address] [place] [address] Dr. More Restrepo Glucose [Mass/Vol] 97 mg/dL Normal 74-106 [facility] Comment on above: Performed By: #### C RP, BMP #### [facility] [address] [place] [address] Dr. More Restrepo Potassium [Moles/Vol] 4.0 mmol/L Normal 3.5-5.[address] [facility] Comment on above: Performed By: #### C RP, BMP #### [facility] [address] [place] [address] Dr. More Restrepo Sodium [Moles/Vol] 138 mmol/L Normal 136-145 [facility] Comment on above: Performed By: #### C RP, BMP #### [facility] [address] [place] [address] Dr. More Restrepo Urea nitrogen [Mass/Vol] 12.0 mg/dL Normal 7.0-18.[address] [facility] Comment on above: Performed By: #### C RP, BMP #### [facility] [address] [place] [address] Dr. More Restrepo Urea nitrogen/Creatinin e [Mass ratio] 12.8 mg/mg Normal [facility] Comment on above: Performed By: #### C RP, BMP #### [facility] [address] [place] [address] Dr. More Restrepo SED RATE [facility] 2021 SED RATE 16 mm/hr Critically high <=15 [facility] Comment on above: Performed By: #### S EDR #### [facility] [address] [place] [address] Dr. More Restrepo XR ANKLE LT MIN [...] NILESH DELUCA Date: 2022-03-26 04:21 Normal [facility] SoevolvedID Quick Testingon 2020 Result Positive [facility] Other XR humerus LT*on 07-31-2020 XR humerus LT* [facility] [address] [id number] XRay Report Signed Patient: Av Martinez MR#: [id number] : 1985 Acct:[id number] Age/Sex: 35 / F ADM Date: 07/31/20 Loc: XDCLY Room: Type: [facility] Attending Dr: Anna ROGER Ordering Provider: ANNA [...] Corbett Jr., M.D.07/31/2020 5:17 PM Dictation Location: [place] [address] Transcribed By: [facility] 07/31/201716 Dictated By: Eber Corbett Jr, MD 07/31/201714 Signed By: 07/31/201716 [facility] Vital Signs Date Time Vital Sign Value Performing Clinician Facility 04-24-2023 13:45-0500 Body height 175.26 cm Kalyani Gamble Other [facility] Other 04-24-2023 13:45-0500 Body mass index (BMI) [Ratio] 37.65 kg/m2 Kalyani Gamble Other [facility] Other 04-24-2023 13:45-0500 Body temperature 98.1 [degF] Kalyani Gamble Other [facility] Other 04-24-2023 13:45-0500 Body weight 115.67 kg Kalyani Gamble Other [facility] Other 04-24-2023 13:45-0500 Respiratory rate 19 /min Kalyani Meraarney Other [facility] Other 04-24-2023 13:45-0500 SaO2% (BldA) [Mass fraction] 96 % Kalyani Meraarney Other [facility] Other 04-22-2021 13:15-0500 Body height 175.26 cm Malenaethan Gardner Other [facility] Other 04-22-2021 13:15-0500 Body mass index (BMI) [Ratio] 35.44 kg/m2 Ginger Gardner Other [facility] Other 04-22-2021 13:15-0500 Body temperature 97.6 [degF] Ginger Gardner Other [facility] Other 04-22-2021 13:15-0500 Body weight 108.86 kg Ginger Gardner Other [facility] Other 04-22-2021 13:15-0500 Respiratory rate 16 /min Ginger Gardner Other [facility] Other 04-22-2021 13:15-0500 SaO2% (BldA) [Mass fraction] 95 % Ginger Gardner Other [facility] Other 02-24-2021 14:15-0400 Body height 175.26 cm Nathalia Salazar Other [facility] Other 02-24-2021 14:15-0400 Body mass index (BMI) [Ratio] 35.44 kg/m2 Nathalia Salazar Other [facility] Other 02-24-2021 14:15-0400 Body temperature 98.8 [degF] Nathalia Salazar Other [facility] Other 02-24-2021 14:15-0400 Body weight 108.86 kg Nathalia Salazar Other [facility] Other 02-24-2021 14:15-0400 SaO2% (BldA) [Mass fraction] 97 % Nathalia Salazar Other [facility] Other Encounters Encounter Date Encounter Type Care Provider Facility Start: 03-15-2024 End: 03-15-2024 ambulatory Radha L Adeline Facility[facility] Start: 08-19-2023 End: 08-19-2023 ambulatory Ardha L Adeline Facility[facility] Start: 06-02-2023 End: 06-02-2023 ambulatory Radha L Adeline Facility:[facility] Start: 05-16-2023 End: 05-16-2023 ambulatory Radha L Adeline Facility:[facility] Start: 05-06-2023 End: 05-06-2023 ambulatory Radha L Adeline Facility[facility] Start: 04-24-2023 End: 04-24-2023 ambulatory Kalyani Gamble Other [facility] Other Start: 04-24-2023 Office outpatient vi sit 25 minutes Kalyani Gamble [facility] Start: 06-01-2022 End: 06-01-[address] CANDIDO GERMAIN Facility:[facility] Start: 03-26-2022 End: 03-26-[address] CANDIDO GERMAIN Facility:[facility] Start: 04-22-2021 End: 04-22-2021 ambulatory Ginger Gardner Other [facility] Other Start: 04-22-2021 Office outpatient vi sit 15 minutes Ginger Gardner [facility] Start: 02-24-2021 Office outpatient vi sit 15 minutes Nathalia Marie [facility] Payers Date Payer Category Payer Unknown [id number] 2.16.84 [id number] 1985 Unknown [id number] 2.16.84 [id number] 1985 Unknown [id number] 2.16.8 [id number] 1985 Unknown [id number] 2.16.8 [id number] 1985 Unknown [id number] 2.16.8 [id number] 1985 Unknown [id number] 2.16.8 [id number] 1985 Unknown [id number] 2.16.8 [id number] 1961 [facility] [id number] Social History Date Type Detail Facility Unknown if ever smoked [facility] Other Sex Assigned At Sex Assigned At Bir th [facility] Other Evaluation note 04-24-2023 Note Date & [...] or worsen. All questions and concerns addressed. [facility] Other Evaluation note 04-22-2021 Note Date & [...] Patient care instructions given in writting by [facility] Care At Home document. [facility] Other Evaluation note 02-24-2021 Note Date & [...] Patient care instructions given in writting by [facility] Care At Home document. [facility] Other History general Narrative - Reported Note Date & Type Note Facility History general Narrative - Reported Type Medical History anxiety [facility] Other Summary Purpose Family History No Family History Records FoundNo Family History Records FoundNo Family History Records Found Advance Directives No Advanced Directives Records FoundNo Advanced Directives Records FoundNo Advanced Directives Records Found Additional Source Comments INFORMATION SOURCE (unrecogn ized section and content) DATE CREATED AUTHOR 05/14/2021 [facility] DATE CREATED AUTHOR AUTHOR'S ORGANIZ ATION 06/04/2022 [facility] DATE CREATED AUTHOR AUTHOR'S ORGANIZ ATION 03/17/2024 [facility] REASON FOR VISIT (unrecogniz ed section [...] BE BASED ON THE PRIMARY CLINICAL RECORDS. [email or web address] provides no warranty or guarantee of the accuracy or completeness of information in this document.
== END 2024-04-06 07:02 | disposition home or self-care (01) ==
LOC: SLEEP 07:02
PROVIDERS: PCP Nurse Practitioner; Visit Provider Nurse Practitioner
DX: G47.33 Obstructive sleep apnea (adult) (pediatric) (principal)
CPT/HCPCS: 95806

== ENCOUNTER 2024-04-27 06:45 | Outpatient (OUT) | payer BC, SELFPAY ==
--- OUTSIDE RECORDS SUMMARY | 2024-04-27 06:56 | XMS_ITS | CCD ---
Author Organization [facility] Inform [facility] Care Team Providers Care Post Closing Specialist Name Role Phone Nathalia Salazar Unavailable Ginger [...] Radha Nelson Attending Unavailable AdelineRadha Attending Unavailable Adeline, Radha Nelson Attending Unavailable AdelineRadha Attending Unavailable Allergies Allergy Classification Reported Allergen(s) Allergy Type Date of Onset Reaction(s) Facility (3 sources) Sulfamethoxazole / Trimethoprim Drug Allergy [facility] Other (2 sources) sulfaSALAzine Drug Allergy [facility] Other (1 source) Sulfamethoxazole / Trimethoprim Drug Allergy 01-25-20 17 [facility] Repository (1 source) Sulfonamides (Antibiotic) Drug allergy (disorder) 01-25-20 17 [facility] Repository (1 source) Substance with sulfonamide structure and antibacterial mechanism of action (substance) Drug allergy [facility] Other (1 source) Sulfonamides (Antibiotic); Translations: [sulfa drugs] Propensity to adverse reactions (disorder) [facility] Repository Medications Current Medications Medication Drug Class(es) Dates Sig (Normalized) Sig (Original) [id number] 200 actuat albuterol 0.09 mg/actuat metered dose [...] oral tablet (1 source) alpha-Adrenergic Agonist, Uncompetitive Z-ldvjfn-I-aspartate Receptor Antagonist, Sigma-1 Agonist Start: 04-22-2021 take [...] as directed on package labeling Pickup at [facility]/pharmacy #[id number] Pharmacy Information [facility]/pharmacy #[id number]: [address], [place] [id number] [phone] Medications and Immunizations Administered Given Kenalog-40, 40 [...] for choosing us for your care. Daniel [facility] Family Medicine Office/Clini c Noteon 03-15-2024 Family Medicine Office/Clinic Note Family Medicine Office/Clinic Note [facility] Staff Av is a 38 year old [...] Daily, # 30 tab(s), Refills(s) 0, Pharmacy: [facility]/pharmacy #[id number], 170, cm, 08/19/23 14:58:00 EDT, Height/Length Dosing, 114.1, kg, 08/19/23 14:58:00 EDT, Weight Dosing 7. Exogenous obesity (E66.09: Other obesity due to excess calories) see above Orders: albuterol, 2 puff(s), Inhalation, q6hr, 8.5 gm, Refill(s) 0, [facility]/pharmacy #[id number], 170, cm, 06/02/23 14:44:00 EST, Height/Length Dosing, 112, kg, 06/02/23 14:44:00 EST, Weight Dosing azithromycin, = 1 packet(s), Oral, As Directed, as directed on package labeling, X 5 day(s), # 6 tab(s), Refills(s) 0, Pharmacy: [facility]/pharmacy #[id number], 170, cm, 03/15/24 15:03:00 EDT, Height/Length [...] measles/mumps/rubella virus vaccine 06/12/1995 Recorded Normal Orellana [facility] Comment on above: Result Comment: Elec tronically Signed By: Radha Umaña\.br\Date and Time Signed: 03/15/24 15:20 EDT ED Note-Physicianon 11-12-19 ED Note-Physician [id number]#1.00 TIFF Normal [facility] RAD - CT Reporton 11-12-2023 RAD - CT Report [id number]#1.0 0TIFF Normal [facility] RAD - CT Report [id number]#1.0 0TIFF Normal [facility] RAD - CT Report [id number]#1.00 TIFF Normal [facility] Formson 09-09-2023 Forms [id number]#1.0 0TIFF [facility] Ambulatory Visit Summaryon 0 08-19-2023 Ambulatory Visit [...] choosing us for your care. Daniel Orellana [facility] Medicine Office/Clini c Noteon 08-19-2023 Family Medicine Office/Clinic Note HPI Staff Av is a 38 year old male presenting for ER follow up ER followup: Hospital: [facility] Visit date: 08/15/23 Symptoms the patient [...] Daily, # 30 tab(s), Refills(s) 0, Pharmacy: [facility] #[id number], 170, cm, 08/19/23 14:58:00 EDT, Height/Length Dosing, 114.1, kg, 08/19/23 14:58:00 EDT, Weight Dosing methylPREDNISolone, = 1 packet(s), Oral, As Directed, as directed on package labeling, X 6 day(s), # 21 tab(s), Refills(s) 0, Pharmacy: [facility]/pharmacy #[id number], 170, cm, 08/19/23 14:58:00 EDT, Height/Length Dosing, 114.1, kg, 08/19/23 14:58:00 EDT, Weight Dosing 2. BMI 39.0-39.9,adult (Z68.39: Body mass index [BMI] 39.0-39.9, adult) BMI education complete Ordered: meloxicam, 15 mg = 1 tab(s), Oral, Daily, # 30 tab(s), Refills(s) 0, Pharmacy: [facility]/pharmacy #[id number], 170, cm, 08/19/23 14:58:00 EDT, Height/Length Dosing, 114.1, kg, 08/19/23 14:58:00 EDT, Weight Dosing methylPREDNISolone, = 1 packet(s), Oral, As Directed, as directed on package labeling, X 6 day(s), # 21 tab(s), Refills(s) 0, [id number] 170, cm, 08/19/23 14:58:00 EDT, Height/Length Dosing, 114.1, kg, 08/19/23 14:58:00 EDT, Weight Dosing 3. Non-smoker (Z78.9: Other specified health status) continue not smoking Ordered: meloxicam, 15 mg = 1 tab(s), Oral, Daily, # 30 tab(s), Refills(s) 0, [id number] 170, cm, 08/19/23 14:58:00 EDT, Height/Length Dosing, 114.1, kg, 08/19/23 14:58:00 EDT, Weight Dosing methylPREDNISolone, = 1 packet(s), Oral, As Directed, as directed on package labeling, X 6 day(s), # 21 tab(s), Refills(s) 0, [id number], 170, cm, 08/19/23 14:58:00 EDT, Height/Length [...] Recorded measles/mumps/rubella virus vaccine 06/12/1995 Recorded Normal [facility] Comment on above: Result Comment: Elec tronically Signed By: Radha Umaña\.br\Date and Time Signed: 08/19/23 15:37 EDT ED Note-Physicianon 08-18-19 ED Note-Physician [id number]#1.0 0TIFF Normal [facility] RAD - MISCon 08-18-2023 RAD - MISC [id number]#1.0 0TIFF [facility] Ambulatory Visit Summaryon 0 06-02-2023 Ambulatory Visit [...] choosing us for your care. Normal Orellana [facility] Family Medicine Office/Clini c Noteon 06-02-2023 [...] BID, # 12 gram, Refills(s) 0, Pharmacy: [facility]/pharmacy #[id number], 170.5, cm, 05/16/23 14:37:00 EST, Height/Length Dosing, 113.2, kg, 05/16/23 14:37:00 EST, Weight Dosing 3. BMI 38.0-38.9,adult (Z68.38: Body mass index [BMI] 38.0-38.9, adult) BMI education complete Ordered: albuterol, 2 puff(s), Inhalation, q6hr, 8.5 gm, Refill(s) 0, [facility]/pharmacy #[id number], 170, cm, 06/02/23 14:44:00 EST, Height/Length Dosing, 112, kg, 06/02/23 14:44:00 EST, Weight Dosing azithromycin, = 1 packet(s), Oral, As Directed, as directed on package labeling, X 5 day(s), # 6 tab(s), Refills(s) 0, Pharmacy: [facility]/pharmacy #[id number], 170, cm, 06/02/23 14:44:00 EST, Height/Length Dosing, 112, kg, 06/02/23 14:44:00 EST, Weight Dosing methylPREDNISolone, = 1 packet(s), Oral, As Directed, as directed on package labeling, X 6 day(s), # 21 tab(s), Refills(s) 0, Pharmacy: [facility]/pharmacy #[id number], 170, cm, 06/02/23 14:44:00 EST, Height/Length Dosing, 112, kg, 06/02/23 14:44:00 EST, Weight Dosing 4. Non-smoker (Z78.9: Other specified health status) continue not smoking Ordered: albuterol, 2 puff(s), Inhalation, q6hr, 8.5 gm, Refill(s) 0, [facility]/pharmacy #[id number], 170, cm, 06/02/23 14:44:00 EST, Height/Length Dosing, 112, kg, 06/02/23 14:44:00 EST, Weight Dosing azithromycin, = 1 packet(s), Oral, As Directed, as directed on package labeling, X 5 day(s), # 6 tab(s), Refills(s) 0, Pharmacy: [facility]/pharmacy #[id number], 170, cm, 06/02/23 14:44:00 EST, Height/Length Dosing, 112, kg, 06/02/23 14:44:00 EST, Weight Dosing fluticasone, = 2 puff(s), Inhalation, BID, # 12 gram, Refills(s) 0, Pharmacy: [facility]/pharmacy #[id number], 170.5, cm, 05/16/23 14:37:00 EST, Height/Length Dosing, 113.2, kg, 05/16/23 14:37:00 EST, Weight Dosing methylPREDNISolone, = 1 packet(s), Oral, As Directed, as directed on package labeling, X 6 day(s), # 21 tab(s), Refills(s) 0, [id number], 170, cm, 06/02/23 14:44:00 EST, Height/Length [...] DTaP, unspecified f (more content not included)... [facility] Comment on above: Result Comment: Elec tronically Signed By: Radha Umaña\.br\Date and Time Signed: 06/02/23 15:20 EST Consenton 05-20-2023 Consent [id number]#1.0 0TIFF [facility] Physician Orderon 05-20-2023 Physician Order [id number]#1.0 0TIFF [facility] RAD - MISCon 05-20-2023 RAD - MISC [id number]#1.0 0TIFF [facility] Ambulatory Visit Summaryon 1 07-17-2022 Ambulatory Visit [...] choosing us for your care. Daniel Orellana [facility] Medicine Office/Clini c Noteon 05-16-2023 Family Medicine [...] xray order provided. to be done at [facility]. all questions answered. RTC as needed Ordered: fluticasone, = 2 puff(s), Inhalation, BID, # 12 gram, Refills(s) 0, Pharmacy: [facility]/pharmacy #[id number], 170.5, cm, 05/16/23 14:37:00 EST, Height/Length Dosing, 113.2, kg, 05/16/23 14:37:00 EST, Weight Dosing levofloxacin, 500 mg = 1 tab(s), Oral, q24hr, X 7 day(s), # 7 tab(s), Refills(s) 0, [id number], 170.5, cm, 05/16/23 14:37:00 EST, Height/Length [...] 12 gram, Refills(s) 0, [id number], 170.5, cm, 05/16/23 14:37:00 EST, Height/Length Dosing, 113.2, kg, 05/16/23 14:37:00 EST, Weight Dosing levofloxacin, 500 mg = 1 tab(s), Oral, q24hr, X 7 day(s), # 7 tab(s), Refills(s) 0, [id number], 170.5, cm, 05/16/23 14:37:00 EST, Height/Length [...] 12 gram, Refills(s) 0, [id number], 170.5, cm, 05/16/23 14:37:00 EST, Height/Length Dosing, 113.2, kg, 05/16/23 14:37:00 EST, Weight Dosing levofloxacin, 500 mg = 1 tab(s), Oral, q24hr, X 7 day(s), # 7 tab(s), Refills(s) 0, [id number], 170.5, cm, 05/16/23 14:37:00 EST, Height/Length Dosing, 113.2, kg, 05/16/23 14:37:00 EST, Weight Dosing triamcinolone, 60 mg = 1.5 mL, Injection, IntraMuscular, Once, Stop date 05/16/23 14:52:00 EST, Routine, Start date 05/16/23 14:52:00 EST, 05/16/23 14:52:00 EST 4. Non-smoker (Z78.9: Other specified health status) continue not smoking Ordered: fluticasone, = 2 puff(s), Inhalation, BID, # 12 gram, Refills(s) 0, [id number], 170.5, cm, 05/16/23 14:37:00 EST, Height/Length Dosing, 113.2, kg, 05/16/23 14:37:00 EST, Weight Dosing levofloxacin, 500 mg = 1 tab(s), Oral, q24hr, X 7 day(s), # 7 tab(s), Refills(s) 0, [id number], 170.5, cm, 05/16/23 14:37:00 EST, Height/Length [...] 11/25/2022 Tob (more content not included)... Normal [facility] Comment on above: Result Comment: Elec [...] you for choosing us for your care. [facility] Family Medicine Office/Clini c Noteon 05-06-2023 Family [...] day(s), # 6 tab(s), Refills(s) 0, Pharmacy: [facility]/pharmacy #[id number], 170.5, cm, 05/06/23 8:49:00 EST, Height/Length Dosing, 115.9, kg, 05/06/23 8:49:00 EST, Weight Dosing benzonatate, 200 mg = 1 cap(s), Oral, TID, X 7 day(s), # 21 cap(s), Refills(s) 0, Pharmacy: [facility]/pharmacy #[id number], 170.5, cm, 05/06/23 8:49:00 EST, Height/Length Dosing, 115.9, kg, 05/06/23 8:49:00 EST, Weight Dosing methylPREDNISolone, = 1 packet(s), Oral, As Directed, as directed on package labeling, X 6 day(s), # 21 tab(s), Refills(s) 0, [id number], 170.5, cm, 05/06/23 8:49:00 EST, Height/Length Dosing, 115.9, kg, 05/06/23 8:49:00 EST, Weight Dosing 2. Cough (R05.9: Cough, unspecified) medrol dose pack and tessalon pearls sent Ordered: azithromycin, = 1 packet(s), Oral, As Directed, as directed on package labeling, X 5 day(s), # 6 tab(s), Refills(s) 0, [id number], 170.5, cm, 05/06/23 8:49:00 EST, Height/Length Dosing, 115.9, kg, 05/06/23 8:49:00 EST, Weight Dosing benzonatate, 200 mg = 1 cap(s), Oral, TID, X 7 day(s), # 21 cap(s), Refills(s) 0, [id number], 170.5, cm, 05/06/23 8:49:00 EST, Height/Length Dosing, 115.9, kg, 05/06/23 8:49:00 EST, Weight Dosing methylPREDNISolone, = 1 packet(s), Oral, As Directed, as directed on package labeling, X 6 day(s), # 21 tab(s), Refills(s) 0, [id number], 170.5, cm, 05/06/23 8:49:00 EST, Height/Length Dosing, 115.9, kg, 05/06/23 8:49:00 EST, Weight Dosing 3. Nasal congestion (R09.81: Nasal congestion) see above Ordered: azithromycin, = 1 packet(s), Oral, As Directed, as directed on package labeling, X 5 day(s), # 6 tab(s), Refills(s) 0, [id number], 170.5, cm, 05/06/23 8:49:00 EST, Height/Length Dosing, 115.9, kg, 05/06/23 8:49:00 EST, Weight Dosing benzonatate, 200 mg = 1 cap(s), Oral, TID, X 7 day(s), # 21 cap(s), Refills(s) 0, Pharmacy: [facility] #[id number], 170.5, cm, 05/06/23 8:49:00 EST, Height/Length Dosing, 115.9, kg, 05/06/23 8:49:00 EST, Weight Dosing methylPREDNISolone, = 1 packet(s), Oral, As Directed, as directed on package labeling, X 6 day(s), # 21 tab(s), Refills(s) 0, Pharmacy: [facility] #[id number], 170.5, cm, 05/06/23 8:49:00 EST, Height/Length Dosing, 115.9, kg, 05/06/23 8:49:00 EST, Weight Dosing 4. Bronchitis (J40: Bronchitis, not specified as acute or chronic) see above Ordered: azithromycin, = 1 packet(s), Oral, As Directed, as directed on package labeling, X 5 day(s), # 6 tab(s), Refills(s) 0, Pharmacy: [facility] #[id number], 170.5, cm, 05/06/23 8:49:00 EST, Height/Length Dosing, 115.9, kg, 05/06/23 8:49:00 EST, Weight Dosing benzonatate, 200 mg = 1 cap(s), Oral, TID, X 7 day(s), # 21 cap(s), Refills(s) 0, Pharmacy: [facility] #[id number], 170.5, cm, 05/06/23 8:49:00 EST, Height/Length Dosing, 115.9, kg, 05/06/23 8:49:00 EST, Weight Dosing methylPREDNISolone, = 1 packet(s), Oral, (more content not included)... Normal [facility] Comment on above: Result Comment: Elec tronically Signed By: Radha Umaña\.br\Date and Time Signed: 05/06/23 08:59 EST CBC AUTO DIFFon 06-01-2022 BASO # 0.0 103/ul Normal 0.0-0.1 [facility] Comment on above: Performed By: #### C BC #### [facility] [address] [address] [address] More Restrepo Basophils/100 WBC (Bld) 0.6 % Normal 0.2-2.0 [facility] Comment on above: Performed By: #### C BC #### [facility] [address] [address] [address] More Restrepo EO # 0.1 103/ul Normal 0.0-0.7 [facility] Comment on above: Performed By: #### C BC #### [facility] [address] [address] [address] More Restrepo Eosinophils/100 WBC (Bld) 1.3 % Normal 0.9-7.0 [facility] Comment on above: Performed By: #### C BC #### [facility] [address] [address] [address] More Restrepo Erythrocyte distribution width (RBC) [Ratio] 11.9 % Normal 11.0-15.0 [facility] Comment on above: Performed By: #### C BC #### [facility] [address] [address] [address] More Restrepo Hematocrit (Bld) [Volume fraction] 40.3 % Critically low 42.0-54.0 [facility] Comment on above: Performed By: #### C BC #### [facility] [address] [address] [address] More Restrepo Hemoglobin (Bld) [Mass/Vol] 13.8 g/dL Critically low 14.0-18.0 [facility] Comment on above: Performed By: #### C BC #### [facility] [address] [address] [address] More Restrepo IG # 0.05 10e3/ul Critically high 0.00-0.03 [facility] Comment on above: Performed By: #### C BC #### [facility] [address] [address] [address] More Restrepo IG % 0.7 % Critically high 0.0-0.5 [facility] Comment on above: Performed By: #### C BC #### [facility] [address] [place] [address] Dr. More Restrepo LYMPH # 3.4 103/ul Normal 1.2-3.8 [facility] Comment on above: Performed By: #### C BC #### [facility] [address] [place] [address] Dr. More Restrepo Lymphocytes/100 WBC (Bld) 47.4 % Normal 20.5-60.0 [facility] Comment on above: Performed By: #### C BC #### [facility] [address] [place] [address] Dr. More Restrepo MANUAL DIFF REQ NO Normal [facility] Comment on above: Performed By: #### C BC #### [facility] [address] [place] [address] Dr. More Restrepo MCH (RBC) [Entitic mass] 30.0 pg Normal 25.9-34.0 [facility] Comment on above: Performed By: #### C BC #### [facility] [address] [place] [address] Dr. More Restrepo MCHC (RBC) [Mass/Vol] 34.2 g/dL Normal 29.9-35.2 [facility] Comment on above: Performed By: #### C BC #### [facility] [address] [place] [address] Dr. More Restrepo MCV (RBC) [Entitic vol] 87.6 fL Normal 80.0-94.0 [facility] Comment on above: Performed By: #### C BC #### [facility] [address] [place] [address] Dr. More Restrepo MONO # 0.7 103/ul Normal 0.3-0.8 [facility] Comment on above: Performed By: #### C BC #### [facility] [address] [place] [address] Dr. More Restrepo Monocytes/100 WBC (Bld) 9.7 % Normal 1.7-12.0 [facility] Comment on above: Performed By: #### C BC #### [facility] [address] [place] [address] Dr. More Restrepo NEUT # 2.9 103/ul Normal 1.4-6.5 [facility] Comment on above: Performed By: #### C BC #### [facility] [address] [place] [address] Dr. More Restrepo Neutrophils/100 WBC (Bld) 40.3 % Critically low 43.0-75.0 [facility] Comment on above: Performed By: #### C BC #### [facility] [address] [place] [address] Dr. More Restrepo Platelet mean volume (Bld) [Entitic vol] 10.1 fL Normal 9.5-13.5 [facility] Comment on above: Performed By: #### C BC #### [facility] [address] [place] [address] Dr. More Restrepo PLT 301 103/ul Normal 150-450 [facility] Comment on above: Performed By: #### C BC #### [facility] [address] [place] [address] Dr. More Restrepo RBC 4.60 106/ul Critically low 4.70-6.10 [facility] Comment on above: Performed By: #### C BC #### [facility] [address] [place] [address] Dr. More Restrepo WBC 7.1 103/ul Normal 4.0-11.0 [facility] Comment on above: Performed By: #### C BC #### [facility] [address] [place] [address] HEAD WO CONon [...] HODA DUNHAM Date: 2022-06-01 08:16 Normal [facility] D-DIMERon 06-01-2022 D-DIMER 0.29 mg/L FEU Normal <=0.59 [facility] Comment on above: Performed By: #### D DIM #### [facility] [address] [place] [address] Dr. More Restrepo D-DIMER COMMENTS SEE BELOW Normal [facility] Comment on above: Result Comment: Incr [...] hospitalization. Performed By: #### D DIM #### [facility] [address] [place] [address] Dr. More Restrepo PROF CHEM 8 (BAS METB)on Anion gap [Moles/Vol] 18.3 mmol/L Normal [facility] Comment on above: Performed By: #### C RP, BMP #### [facility] [address] [place] [address] Dr. More Restrepo Calcium [Mass/Vol] 8.6 mg/dL Normal 8.5-10.1 [facility] Comment on above: Performed By: #### C RP, BMP #### [facility] [address] [place] [address] Dr. More Restrepo Chloride [Moles/Vol] 101 mmol/L Normal 98-107 [facility] Comment on above: Performed By: #### C RP, BMP #### [facility] [address] [place] [address] Dr. More Restrepo CO2 [Moles/Vol] 24.0 mmol/L Normal 21.0-32.0 [facility] Comment on above: Performed By: #### C RP, BMP #### [facility] [address] [place] [address] Dr. More Restrepo Creatinine [Mass/Vol] 1.11 mg/dL Normal 0.70-1.30 [facility] Comment on above: Performed By: #### C RP, BMP #### [facility] [address] [address] [address] More Restrepo EGFR-AF GERMAN >60 Normal >=60 [facility] Comment on above: Performed By: #### C RP, BMP #### [facility] [address] [place] [address] Dr. More Restrepo EGFR-NON AF GERMAN >60 Normal >=60 [facility] Comment on above: Performed By: #### C RP, BMP #### [facility] [address] [place] [address] Dr. More Restrepo Glucose [Mass/Vol] 153 mg/dL Critically high 74-106 [facility] Comment on above: Performed By: #### C RP, BMP #### [facility] [address] [address] [address] More Restrepo Potassium [Moles/Vol] 3.3 mmol/L Critically low 3.5-5.1 [facility] Comment on above: Performed By: #### C RP, BMP #### [facility] [address] [place] [address] Dr. More Restrepo Sodium [Moles/Vol] 140 mmol/L Normal 136-145 [facility] Comment on above: Performed By: #### C RP, BMP #### [facility] [address] [address] [address] More Restrepo Urea nitrogen [Mass/Vol] 16.0 mg/dL Normal 7.0-18.0 [facility] Comment on above: Performed By: #### C RP, BMP #### [facility] [address] [place] [address] Dr. More Restrepo Urea nitrogen/Creatinin e [Mass ratio] 14.4 mg/mg Normal [facility] Comment on above: Performed By: #### C RP, BMP #### [facility] [address] [place] [address] Dr. More Restrepo TROPONIN, HIGH SENSITIVITYon 06-01-2022 HSTROP 5.9 pg/mL Normal 4.0-76.1 [facility] Comment on above: Result Comment: CUT- OFF POINTS HAVE BEEN ESTABLISHED BASED ON THE FOURTH UNIVERSAL DEFINITIONS OF MYOCARDIAL INFARCTION. THE UPPER REFERENCE LIMIT (URL) OF TROPONIN, DEFINED THE 99TH PERCENTILE OF cTnI DISTRIBUTION IN A REFERENCE POPULATION, HAS BEEN CONFIRMED THE DECISION THRESHOLD FOR SC DIAGNOSIS. Performed By: #### C RP, BMP #### [facility] [address] [place] [address] Dr. More Restrepo XR CHEST 1 Von 06-01-2022 XR CHEST 1 V CHEST X-RAY, 1 VIEW HISTORY: Near syncope. COMPARISON: None. FINDINGS: The heart, kim, and mediastinum are unremarkable. The lungs are grossly clear. There are no pleural effusions. There is no pneumothorax. IMPRESSION: No evidence of acute cardiopulmonary disease. Electronically authenticated by: HODA DUNHAM Date: 2022-06-01 08:15 Normal [facility] CBC AUTO DIFFon 03-26-2022 BASO # 0.0 103/ul Normal 0.0-0.1 [facility] Comment on above: Performed By: #### C BC #### [facility] [address] [place] [address] Dr. More Restrepo Basophils/100 WBC (Bld) 0.3 % Normal 0.2-2.0 [facility] Comment on above: Performed By: #### C BC #### [facility] [address] [place] [address] Dr. More Restrepo EO # 0.1 103/ul Normal 0.0-0.7 [facility] Comment on above: Performed By: #### C BC #### [facility] [address] [place] [address] Dr. More Restrepo Eosinophils/100 WBC (Bld) 1.4 % Normal 0.9-7.0 [facility] Comment on above: Performed By: #### C BC #### [facility] [address] [place] [address] Dr. More Restrepo Erythrocyte distribution width (RBC) [Ratio] 11.7 % Normal 11.0-15.0 [facility] Comment on above: Performed By: #### C BC #### [facility] [address] [place] [address] Dr. More Restrepo Hematocrit (Bld) [Volume fraction] 42.6 % Normal 42.0-54.0 [facility] Comment on above: Performed By: #### C BC #### [facility] [address] [place] [address] Dr. More Restrepo Hemoglobin (Bld) [Mass/Vol] 14.3 g/dL Normal 14.0-18.0 [facility] Comment on above: Performed By: #### C BC #### [facility] [address] [place] [address] Dr. More Restrepo IG # 0.05 10e3/ul Critically high 0.00-0.03 [facility] Comment on above: Performed By: #### C BC #### [facility] [address] [place] [address] Dr. More Restrepo IG % 0.8 % Critically high 0.0-0.5 [facility] Comment on above: Performed By: #### C BC #### [facility] [address] [place] [address] Dr. More Restrepo LYMPH # 1.5 103/ul Normal 1.2-3.8 [facility] Comment on above: Performed By: #### C BC #### [facility] [address] [place] [address] Dr. More Restrepo Lymphocytes/100 WBC (Bld) 24.8 % Normal 20.5-60.0 [facility] Comment on above: Performed By: #### C BC #### [facility] [address] [place] [address] Dr. More Restrepo MANUAL DIFF REQ NO Normal [facility] Comment on above: Performed By: #### C BC #### [facility] [address] [address] [address] More Restrepo MCH (RBC) [Entitic mass] 29.6 pg Normal 25.9-34.0 [facility] Comment on above: Performed By: #### C BC #### [facility] [address] [place] [address] Dr. More Restrepo MCHC (RBC) [Mass/Vol] 33.6 g/dL Normal 29.9-35.2 [facility] Comment on above: Performed By: #### C BC #### [facility] [address] [place] [address] Dr. More Restrepo MCV (RBC) [Entitic vol] 88.2 fL Normal 80.0-94.0 [facility] Comment on above: Performed By: #### C BC #### [facility] [address] [place] [address] Dr. More Restrepo MONO # 0.5 103/ul Normal 0.3-0.8 [facility] Comment on above: Performed By: #### C BC #### [facility] [address] [place] [address] Dr. More Restrepo Monocytes/100 WBC (Bld) 8.8 % Normal 1.7-12.0 [facility] Comment on above: Performed By: #### C BC #### [facility] [address] [place] [address] Dr. More Restrepo NEUT # 3.8 103/ul Normal 1.4-6.5 [facility] Comment on above: Performed By: #### C BC #### [facility] [address] [place] [address] Dr. More Restrepo Neutrophils/100 WBC (Bld) 63.9 % Normal 43.0-75.0 [facility] Comment on above: Performed By: #### C BC #### [facility] [address] [place] [address] Dr. More Restrepo Platelet mean volume (Bld) [Entitic vol] 9.4 fL Critically low 9.5-13.5 [facility] Comment on above: Performed By: #### C BC #### [facility] [address] [address] [address] More Restrepo PLT 265 103/ul Normal 150-450 [facility] Comment on above: Performed By: #### C BC #### [facility] [address] [place] [address] Dr. More Restrepo RBC 4.83 106/ul Normal 4.70-6.10 [facility] Comment on above: Performed By: #### C BC #### [facility] [address] [place] [address] Dr. More Restrepo WBC 5.9 103/ul Normal 4.0-11.0 [facility] Comment on above: Performed By: #### C BC #### [facility] [address] [place] [address] Dr. More Restrepo CRPon 03-26-2022 CRP 0.5 mg/dL Normal <=1.0 [facility] Comment on above: Performed By: #### C RP, BMP #### [facility] [address] [place] [address] Dr. More Restrepo D-DIMERon 03-26-2022 D-DIMER 0.19 mg/L FEU Normal <=0.59 [facility] Comment on above: Performed By: #### D DIM #### [facility] [address] [place] [address] Dr. More Restrepo D-DIMER COMMENTS SEE BELOW Normal [facility] Comment on above: Result Comment: Incr [...] hospitalization. Performed By: #### D DIM #### [facility] [address] [place] [address] Dr. More Restrepo PROF CHEM 8 (BAS METB)on Anion gap [Moles/Vol] 8.6 mmol/L Normal [facility] Comment on above: Performed By: #### C RP, BMP #### [facility] [address] [place] [address] Dr. More Restrepo Calcium [Mass/Vol] 8.7 mg/dL Normal 8.5-10.1 [facility] Comment on above: Performed By: #### C RP, BMP #### [facility] [address] [place] [address] Dr. More Restrepo Chloride [Moles/Vol] 104 mmol/L Normal 98-107 [facility] Comment on above: Performed By: #### C RP, BMP #### [facility] [address] [place] [address] Dr. More Restrepo CO2 [Moles/Vol] 29.4 mmol/L Normal 21.0-32.0 [facility] Comment on above: Performed By: #### C RP, BMP #### [facility] [address] [place] [address] Dr. More Restrepo Creatinine [Mass/Vol] 0.94 mg/dL Normal 0.70-1.30 [facility] Comment on above: Performed By: #### C RP, BMP #### [facility] [address] [place] [address] Dr. More Restrepo EGFR-AF GERMAN >60 Normal >=60 [facility] Comment on above: Performed By: #### C RP, BMP #### [facility] [address] [place] [address] Dr. More Restrepo EGFR-NON AF GERMAN >60 Normal >=60 [facility] Comment on above: Performed By: #### C RP, BMP #### [facility] [address] [place] [address] Dr. More Restrepo Glucose [Mass/Vol] 97 mg/dL Normal 74-[address] [facility] Comment on above: Performed By: #### C RP, BMP #### [facility] [address] [place] [address] Dr. More Restrepo Potassium [Moles/Vol] 4.0 mmol/L Normal 3.5-5.1 [facility] Comment on above: Performed By: #### C RP, BMP #### [facility] [address] [place] [address] Dr. More Restrepo Sodium [Moles/Vol] 138 mmol/L Normal 136-145 [facility] Comment on above: Performed By: #### C RP, BMP #### [facility] [address] [place] [address] Dr. More Restrepo Urea nitrogen [Mass/Vol] 12.0 mg/dL Normal 7.0-18.0 [facility] Comment on above: Performed By: #### C RP, BMP #### [facility] [address] [place] [address] Dr. More Restrepo Urea nitrogen/Creatinin e [Mass ratio] 12.8 mg/mg Normal [facility] Comment on above: Performed By: #### C RP, BMP #### [facility] [address] [place] [address] Dr. More Restrepo SED RATE [facility] 2021 SED RATE 16 mm/hr Critically high <=15 [facility] Comment on above: Performed By: #### S EDR #### [facility] [address] [place] [address] Dr. More Restrepo XR ANKLE LT MIN [...] NILESH DELUCA Date: 2022-03-26 04:21 Normal [facility] Live[employer] Quick Testingon 2020 Result Positive [facility] Other XR humerus LT*on 07-31-2020 XR humerus LT* [facility] [place] [address] XRay Report Signed Patient: Av Martinez MR#: [id number] : 1985 Acct:[id number] Age/Sex: 35 / F ADM Date: 07/31/20 Loc: XDCLY Room: Type: [facility] Attending Dr: Anna ROGER Ordering [...] Corbett Jr., M.D.07/31/2020 5:17 PM Dictation Location: [place] [address] Transcribed By: [facility] 07/31/201716 Dictated By: Eber Corbett Jr, MD 07/31/201714 Signed By: 07/31/201716 [facility] Vital Signs Date Time Vital Sign Value Performing Clinician Facility 04-24-2023 13:45-0500 Body height 175.26 cm Kalyani Gamble Other [facility] Other 04-24-2023 13:45-0500 Body mass index (BMI) [Ratio] 37.65 kg/m2 Kalyani Gamble Other [facility] Other 04-24-2023 13:45-0500 Body temperature 98.1 [degF] Kalyani Gamble Other [facility] Other 04-24-2023 13:45-0500 Body weight 115.67 kg Kalyani Gamble Other [facility] Other 04-24-2023 13:45-0500 Respiratory rate 19 /min Kalyani Mavis Other [facility] Other 04-24-2023 13:45-0500 SaO2% (BldA) [Mass fraction] 96 % Kalyani Mavis Other [facility] Other 04-22-2021 13:15-0500 Body height 175.26 cm Malenaethan Gardner Other [facility] Other 04-22-2021 13:15-0500 Body mass index (BMI) [Ratio] 35.44 kg/m2 Ginger Gardner Other [facility] Other 04-22-2021 13:15-0500 Body temperature 97.6 [degF] Ginger Gardner Other [facility] Other 04-22-2021 13:15-0500 Body weight 108.86 kg Ginger Gardner Other [facility] Other 04-22-2021 13:15-0500 Respiratory rate 16 /min Ginger Gardner Other [facility] Other 04-22-2021 13:15-0500 SaO2% (BldA) [Mass fraction] 95 % Ginger Gardner Other [facility] Other 02-24-2021 14:15-0400 Body height 175.26 cm Nathalia Salazar Other [facility] Other 02-24-2021 14:15-0400 Body mass index (BMI) [Ratio] 35.44 kg/m2 Nathalia Salazar Other [facility] Other 02-24-2021 14:15-0400 Body temperature 98.8 [degF] Nathalia Salazar Other [facility] Other 02-24-2021 14:15-0400 Body weight 108.86 kg Nathalia Salazar Other [facility] Other 02-24-2021 14:15-0400 SaO2% (BldA) [Mass fraction] 97 % Nathalia Salazar Other [facility] Other Encounters Encounter Date Encounter Type Care Provider Facility Start: 03-15-2024 End: 03-15-2024 ambulatory Radha L Adeline [facility] Start: 08-19-2023 End: 08-19-2023 ambulatory Radha L Adeline Facility[facility] Start: 06-02-2023 End: 06-02-2023 ambulatory Radha L Adeline Facility:[facility] Start: 05-16-2023 End: 05-16-2023 ambulatory Radha L Adeline Facility:[facility] Start: 05-06-2023 End: 05-06-2023 ambulatory Radha L Adeline Facility[facility] Start: 04-24-2023 End: 04-24-2023 ambulatory Kalyani Gamble Other [facility] Other Start: 04-24-2023 Office outpatient vi sit 25 minutes Kalyani Gamble [facility] Start: 06-01-2022 End: 06-01-[address] CANDIDO GERMAIN Facility:[facility] Start: 03-26-2022 End: 03-26-[address] CANDIDO GERMAIN Facility:[facility] Start: 04-22-2021 End: 04-22-2021 ambulatory Ginger Gardner Other [facility] Other Start: 04-22-2021 Office outpatient vi sit 15 minutes Ginger Gardner [facility] Start: 02-24-2021 Office outpatient vi sit 15 minutes Nathalia Marie [facility] Payers Date Payer Category Payer Unknown [id number] 2.16.84 [id number] 1985 Unknown [id number] 2.16.84 [id number] 1985 Unknown [id number] 2.16.8 [id number] 1985 Unknown [id number] 2.16.8 [id number] 1985 Unknown [id number] 2.16.8 [id number] 1985 Unknown [id number] 2.16.8 [id number] 1985 Unknown [id number] 2.16.8 [id number] 1961 [facility] [id number] Social History Date Type Detail Facility Unknown if ever smoked [facility] Other Sex Assigned At Sex Assigned At Bir th [facility] Other Evaluation note 04-24-2023 Note Date & [...] or worsen. All questions and concerns addressed. [facility] Other Evaluation note 04-22-2021 Note Date & [...] Patient care instructions given in writting by [facility] document. [facility] Other Evaluation note 02-24-2021 Note Date & [...] Patient care instructions given in writting by [facility] document. [facility] Other History general Narrative - Reported Note Date & Type Note Facility History general Narrative - Reported Type Medical History anxiety [facility] Other Summary Purpose Family History No Family History Records FoundNo Family History Records FoundNo Family History Records Found Advance Directives No Advanced Directives Records FoundNo Advanced Directives Records FoundNo Advanced Directives Records Found Additional Source Comments INFORMATION SOURCE (unrecogn ized section and content) DATE CREATED AUTHOR 05/14/2021 [facility] DATE CREATED AUTHOR AUTHOR'S ORGANIZ ATION 06/04/[address] [facility] DATE CREATED AUTHOR AUTHOR'S ORGANIZ ATION 04/10/2024 [facility] REASON FOR VISIT (unrecogniz ed [...] BE BASED ON THE PRIMARY CLINICAL RECORDS. [employer] [facility]. provides no warranty or guarantee of the accuracy or completeness of information in this document.
== END 2024-04-27 06:46 | disposition home or self-care (01) ==
PROVIDERS: PCP Nurse Practitioner; Visit Provider Nurse Practitioner
DX: G47.33 Obstructive sleep apnea (adult) (pediatric) (principal)
CPT/HCPCS: 95811

== ENCOUNTER 2024-05-22 22:57 | Emergency (ER) | payer BC, SELFPAY ==
--- OUTSIDE RECORDS SUMMARY | 2024-05-22 23:05 | XMS_ITS | CCD ---
Author Organization [facility] Inform ion Partnership [facility] Care Team Providers Care Magnetic Prospecting Supervisor Name Role Phone Nathalia Salazar Unavailable Ginger [...] (3 sources) Sulfamethoxazole / Trimethoprim Drug Allergy [facility] Other (2 sources) sulfaSALAzine Drug Allergy [facility] Other (1 source) Sulfamethoxazole / Trimethoprim Drug Allergy 01-25-20 17 [facility] Repository (1 source) Sulfonamides (Antibiotic) Drug allergy (disorder) 01-25-20 17 [facility] Repository (1 source) Substance with sulfonamide structure and antibacterial mechanism of action (substance) Drug allergy [facility] Other (1 source) Sulfonamides (Antibiotic); Translations: [sulfa drugs] Propensity to adverse reactions (disorder) [facility] Repository Medications Current Medications Medication Drug Class(es) Dates Sig (Normalized) Sig (Original) [id number] 200 actuat albuterol 0.09 mg/actuat metered dose [...] oral tablet (1 source) alpha-Adrenergic Agonist, Uncompetitive B-rbvlvs-R-aspartate Receptor Antagonist, Sigma-1 Agonist Start: 04-22-2021 take [...] as directed on package labeling Pickup at [id number] [facility]pharmacy #[id number]: [address], [place] [id number] [phone] Medications and Immunizations Administered Given Kenalog-40, 40 [...] for choosing us for your care. Daniel [facility] Family Medicine Office/Clini c Noteon 03-15-2024 Family Medicine Office/Clinic Note Family Medicine Office/Clinic Note [facility] Staff Av is a 38 year [...] Daily, # 30 tab(s), Refills(s) 0, Pharmacy: [facility]/pharmacy #[id number], 170, cm, 08/19/23 14:58:00 EDT, Height/Length Dosing, 114.1, kg, 08/19/23 14:58:00 EDT, Weight Dosing 7. Exogenous obesity (E66.09: Other obesity due to excess calories) see above Orders: albuterol, 2 puff(s), Inhalation, q6hr, 8.5 gm, Refill(s) 0, [facility]pharmacy #[id number], 170, cm, 06/02/23 14:44:00 EST, Height/Length Dosing, 112, kg, 06/02/23 14:44:00 EST, Weight Dosing azithromycin, = 1 packet(s), Oral, As Directed, as directed on package labeling, X 5 day(s), # 6 tab(s), Refills(s) 0, Pharmacy: [facility]pharmacy #[id number], 170, cm, 03/15/24 15:03:00 EDT, Height/Length [...] virus vaccine 06/12/1995 Recorded Normal Orellana [facility] Comment on above: Result Comment: Elec tronically Signed By: Radha Umaña\.br\Date and Time Signed: 03/15/24 15:20 EDT ED Note-Physicianon 11-12-19 ED Note-Physician [id number]#1.00 TIFF Normal [facility] RAD - CT Reporton 11-12-2023 RAD - CT Report [id number]#1.0 0TIFF Normal [facility] RAD - CT Report [id number]#1.0 0TIFF Normal [facility] RAD - CT Report [id number]#1.00 TIFF Normal [facility] Formson 09-09-2023 Forms [id number]#1.0 0TIFF [facility] Ambulatory Visit Summaryon 0 08-19-2023 Ambulatory Visit [...] choosing us for your care. Daniel Orellana [facility] Medicine Office/Clini c Noteon 08-19-2023 Family Medicine [...] # 30 tab(s), Refills(s) 0, Pharmacy: [id number], 170, cm, 08/19/23 14:58:00 EDT, Height/Length Dosing, 114.1, kg, 08/19/23 14:58:00 EDT, Weight Dosing methylPREDNISolone, = 1 packet(s), Oral, As Directed, as directed on package labeling, X 6 day(s), # 21 tab(s), Refills(s) 0, Pharmacy: [facility]pharmacy #[id number], 170, cm, 08/19/23 14:58:00 EDT, Height/Length Dosing, 114.1, kg, 08/19/23 14:58:00 EDT, Weight Dosing 2. BMI 39.0-39.9,adult (Z68.39: Body mass index [BMI] 39.0-39.9, adult) BMI education complete Ordered: meloxicam, 15 mg = 1 tab(s), Oral, Daily, # 30 tab(s), Refills(s) 0, Pharmacy: [facility]pharmacy #[id number], 170, cm, 08/19/23 14:58:00 EDT, Height/Length Dosing, 114.1, kg, 08/19/23 14:58:00 EDT, Weight Dosing methylPREDNISolone, = 1 packet(s), Oral, As Directed, as directed on package labeling, X 6 day(s), # 21 tab(s), Refills(s) 0, [id number], 170, cm, 08/19/23 14:58:00 EDT, Height/Length Dosing, 114.1, kg, 08/19/23 14:58:00 EDT, Weight Dosing 3. Non-smoker (Z78.9: Other specified health status) continue not smoking Ordered: meloxicam, 15 mg = 1 tab(s), Oral, Daily, # 30 tab(s), Refills(s) 0, [id number], 170, cm, 08/19/23 14:58:00 EDT, Height/Length Dosing, 114.1, kg, 08/19/23 14:58:00 EDT, Weight Dosing methylPREDNISolone, = 1 packet(s), Oral, As Directed, as directed on package labeling, X 6 day(s), # 21 tab(s), Refills(s) 0, [id number], 170, cm, 08/19/23 14:58:00 EDT, Height/Length [...] Recorded measles/mumps/rubella virus vaccine 06/12/1995 Recorded Normal [facility] Comment on above: Result Comment: Elec tronically Signed By: Radha Umaña\.br\Date and Time Signed: 08/19/23 15:37 EDT ED Note-Physicianon 08-18-19 ED Note-Physician [id number]#1.0 0TIFF Normal [facility] RAD - MISCon 08-18-2023 RAD - MISC [id number]#1.0 0TIFF [facility] Ambulatory Visit Summaryon 0 06-02-2023 Ambulatory Visit [...] us for your care. Normal Orellana [facility] Family Medicine Office/Clini c Noteon 06-02-2023 [...] BID, # 12 gram, Refills(s) 0, Pharmacy: [facility] #[id number], 170.5, cm, 05/16/23 14:37:00 EST, Height/Length Dosing, 113.2, kg, 05/16/23 14:37:00 EST, Weight Dosing 3. BMI 38.0-38.9,adult (Z68.38: Body mass index [BMI] 38.0-38.9, adult) BMI education complete Ordered: albuterol, 2 puff(s), Inhalation, q6hr, 8.5 gm, Refill(s) 0, [facility] #[id number], 170, cm, 06/02/23 14:44:00 EST, Height/Length Dosing, 112, kg, 06/02/23 14:44:00 EST, Weight Dosing azithromycin, = 1 packet(s), Oral, As Directed, as directed on package labeling, X 5 day(s), # 6 tab(s), Refills(s) 0, Pharmacy: [facility]/pharm[facility] #[id number], 170, cm, 06/02/23 14:44:00 EST, Height/Length Dosing, 112, kg, 06/02/23 14:44:00 EST, Weight Dosing methylPREDNISolone, = 1 packet(s), Oral, As Directed, as directed on package labeling, X 6 day(s), # 21 tab(s), Refills(s) 0, Pharmacy: [facility]/pharmacy #6177, 170, cm, 06/02/23 14:44:00 EST, Height/Length Dosing, 112, kg, 06/02/23 14:44:00 EST, Weight Dosing 4. Non-smoker (Z78.9: Other specified health status) continue not smoking Ordered: albuterol, 2 puff(s), Inhalation, q6hr, 8.5 gm, Refill(s) 0, [facility] #6177, 170, cm, 06/02/23 14:44:00 EST, Height/Length Dosing, 112, kg, 06/02/23 14:44:00 EST, Weight Dosing azithromycin, = 1 packet(s), Oral, As Directed, as directed on package labeling, X 5 day(s), # 6 tab(s), Refills(s) 0, Pharmacy: [facility]/pharm[facility] #[id number], 170, cm, 06/02/23 14:44:00 EST, Height/Length Dosing, 112, kg, 06/02/23 14:44:00 EST, Weight Dosing fluticasone, = 2 puff(s), Inhalation, BID, # 12 gram, Refills(s) 0, Pharmacy: [facility] #[id number], 170.5, cm, 05/16/23 14:37:00 EST, Height/Length Dosing, 113.2, kg, 05/16/23 14:37:00 EST, Weight Dosing methylPREDNISolone, = 1 packet(s), Oral, As Directed, as directed on package labeling, X 6 day(s), # 21 tab(s), Refills(s) 0, [id number], 170, cm, 06/02/23 14:44:00 EST, Height/Length [...] DTaP, unspecified f (more content not included)... [facility] Comment on above: Result Comment: Elec tronically Signed By: Radha Umaña\.br\Date and Time Signed: 06/02/23 15:20 EST Consenton 05-20-2023 Consent [id number]#1.0 0TIFF [facility] Physician Orderon 05-20-2023 Physician Order [id number]#1.0 0TIFF [facility] RAD - MISCon 05-20-2023 RAD - MISC [id number]#1.0 0TIFF [facility] Ambulatory Visit Summaryon 1 07-17-2022 Ambulatory Visit [...] choosing us for your care. Daniel Orellana [facility] Medicine Office/Clini c Noteon 05-16-2023 Family Medicine [...] BID, # 12 gram, Refills(s) 0, Pharmacy: [facility] #[id number], 170.5, cm, 05/16/23 14:37:00 EST, Height/Length Dosing, 113.2, kg, 05/16/23 14:37:00 EST, Weight Dosing levofloxacin, 500 mg = 1 tab(s), Oral, q24hr, X 7 day(s), # 7 tab(s), Refills(s) 0, [id number], 170.5, cm, 05/16/23 14:37:00 EST, Height/Length [...] # 12 gram, Refills(s) 0, [id number], 170.5, cm, 05/16/23 14:37:00 EST, Height/Length Dosing, 113.2, kg, 05/16/23 14:37:00 EST, Weight Dosing levofloxacin, 500 mg = 1 tab(s), Oral, q24hr, X 7 day(s), # 7 tab(s), Refills(s) 0, [facility], 170.5, cm, 05/16/23 14:37:00 EST, Height/Length [...] # 12 gram, Refills(s) 0, [facility], 170.5, cm, 05/16/23 14:37:00 EST, Height/Length Dosing, 113.2, kg, 05/16/23 14:37:00 EST, Weight Dosing levofloxacin, 500 mg = 1 tab(s), Oral, q24hr, X 7 day(s), # 7 tab(s), Refills(s) 0, [facility], 170.5, cm, 05/16/23 14:37:00 EST, Height/Length Dosing, 113.2, kg, 05/16/23 14:37:00 EST, Weight Dosing triamcinolone, 60 mg = 1.5 mL, Injection, IntraMuscular, Once, Stop date 05/16/23 14:52:00 EST, Routine, Start date 05/16/23 14:52:00 EST, 05/16/23 14:52:00 EST 4. Non-smoker (Z78.9: Other specified health status) continue not smoking Ordered: fluticasone, = 2 puff(s), Inhalation, BID, # 12 gram, Refills(s) 0, [id number], 170.5, cm, 05/16/23 14:37:00 EST, Height/Length Dosing, 113.2, kg, 05/16/23 14:37:00 EST, Weight Dosing levofloxacin, 500 mg = 1 tab(s), Oral, q24hr, X 7 day(s), # 7 tab(s), Refills(s) 0, [id number], 170.5, cm, 05/16/23 14:37:00 EST, Height/Length [...] 11/25/2022 Tob (more content not included)... Normal [facility] Comment on above: Result Comment: Elec [...] you for choosing us for your care. [facility] Family Medicine Office/Clini c Noteon 05-06-2023 Family [...] day(s), # 6 tab(s), Refills(s) 0, Pharmacy: [facility] #[id number], 170.5, cm, 05/06/23 8:49:00 EST, Height/Length Dosing, 115.9, kg, 05/06/23 8:49:00 EST, Weight Dosing benzonatate, 200 mg = 1 cap(s), Oral, TID, X 7 day(s), # 21 cap(s), Refills(s) 0, Pharmacy: [facility] #[id number], 170.5, cm, 05/06/23 8:49:00 EST, Height/Length Dosing, 115.9, kg, 05/06/23 8:49:00 EST, Weight Dosing methylPREDNISolone, = 1 packet(s), Oral, As Directed, as directed on package labeling, X 6 day(s), # 21 tab(s), Refills(s) 0, [id number], 170.5, cm, 05/06/23 8:49:00 EST, Height/Length Dosing, 115.9, kg, 05/06/23 8:49:00 EST, Weight Dosing 2. Cough (R05.9: Cough, unspecified) medrol dose pack and tessalon pearls sent Ordered: azithromycin, = 1 packet(s), Oral, As Directed, as directed on package labeling, X 5 day(s), # 6 tab(s), Refills(s) 0, [id number], 170.5, cm, 05/06/23 8:49:00 EST, Height/Length Dosing, 115.9, kg, 05/06/23 8:49:00 EST, Weight Dosing benzonatate, 200 mg = 1 cap(s), Oral, TID, X 7 day(s), # 21 cap(s), Refills(s) 0, [id number], 170.5, cm, 05/06/23 8:49:00 EST, Height/Length Dosing, 115.9, kg, 05/06/23 8:49:00 EST, Weight Dosing methylPREDNISolone, = 1 packet(s), Oral, As Directed, as directed on package labeling, X 6 day(s), # 21 tab(s), Refills(s) 0, [facility], 170.5, cm, 05/06/23 8:49:00 EST, Height/Length Dosing, 115.9, kg, 05/06/23 8:49:00 EST, Weight Dosing 3. Nasal congestion (R09.81: Nasal congestion) see above Ordered: azithromycin, = 1 packet(s), Oral, As Directed, as directed on package labeling, X 5 day(s), # 6 tab(s), Refills(s) 0, [facility], 170.5, cm, 05/06/23 8:49:00 EST, Height/Length Dosing, 115.9, kg, 05/06/23 8:49:00 EST, Weight Dosing benzonatate, 200 mg = 1 cap(s), Oral, TID, X 7 day(s), # 21 cap(s), Refills(s) 0, Pharmacy: [facility] #[id number], 170.5, cm, 05/06/23 8:49:00 EST, Height/Length Dosing, 115.9, kg, 05/06/23 8:49:00 EST, Weight Dosing methylPREDNISolone, = 1 packet(s), Oral, As Directed, as directed on package labeling, X 6 day(s), # 21 tab(s), Refills(s) 0, Pharmacy: [facility] #[id number], 170.5, cm, 05/06/23 8:49:00 EST, Height/Length Dosing, 115.9, kg, 05/06/23 8:49:00 EST, Weight Dosing 4. Bronchitis (J40: Bronchitis, not specified as acute or chronic) see above Ordered: azithromycin, = 1 packet(s), Oral, As Directed, as directed on package labeling, X 5 day(s), # 6 tab(s), Refills(s) 0, Pharmacy: [facility] #[id number], 170.5, cm, 05/06/23 8:49:00 EST, Height/Length Dosing, 115.9, kg, 05/06/23 8:49:00 EST, Weight Dosing benzonatate, 200 mg = 1 cap(s), Oral, TID, X 7 day(s), # 21 cap(s), Refills(s) 0, Pharmacy: [facility] #[id number], 170.5, cm, 05/06/23 8:49:00 EST, Height/Length Dosing, 115.9, kg, 05/06/23 8:49:00 EST, Weight Dosing methylPREDNISolone, = 1 packet(s), Oral, (more content not included)... Normal [facility] Comment on above: Result Comment: Elec tronically Signed By: Radha Umaña\.br\Date and Time Signed: 05/06/23 08:59 EST CBC AUTO DIFFon 06-01-2022 BASO # 0.0 103/ul Normal 0.0-0.1 [facility] Comment on above: Performed By: #### C BC #### [facility] [address] [address] [address] More Restrepo Basophils/100 WBC (Bld) 0.6 % Normal 0.2-2.0 [facility] Comment on above: Performed By: #### C BC #### [facility] [address] [address] [address] More Restrepo EO # 0.1 103/ul Normal 0.0-0.7 [facility] Comment on above: Performed By: #### C BC #### [facility] [address] [address] [address] More Restrepo Eosinophils/100 WBC (Bld) 1.3 % Normal 0.9-7.0 [facility] Comment on above: Performed By: #### C BC #### [facility] [address] [address] [address] More Restrepo Erythrocyte distribution width (RBC) [Ratio] 11.9 % Normal 11.0-15.0 [facility] Comment on above: Performed By: #### C BC #### [facility] [address] [address] [address] More Restrepo Hematocrit (Bld) [Volume fraction] 40.3 % Critically low 42.0-54.0 [facility] Comment on above: Performed By: #### C BC #### [facility] [address] [address] [address] More Restrepo Hemoglobin (Bld) [Mass/Vol] 13.8 g/dL Critically low 14.0-18.0 [facility] Comment on above: Performed By: #### C BC #### [facility] [address] [address] [address] More Restrepo IG # 0.05 10e3/ul Critically high 0.00-0.03 [facility] Comment on above: Performed By: #### C BC #### [facility] [address] [address] [address] More Restrepo IG % 0.7 % Critically high 0.0-0.5 [facility] Comment on above: Performed By: #### C BC #### [facility] [address] [place] [address] Dr. More Restrepo LYMPH # 3.4 103/ul Normal 1.2-3.8 [facility] Comment on above: Performed By: #### C BC #### [facility] [address] [place] [address] Dr. More Restrepo Lymphocytes/100 WBC (Bld) 47.4 % Normal 20.5-60.0 [facility] Comment on above: Performed By: #### C BC #### [facility] [address] [place] [address] Dr. More Restrepo MANUAL DIFF REQ NO Normal [facility] Comment on above: Performed By: #### C BC #### [facility] [address] [place] [address] Dr. More Restrepo MCH (RBC) [Entitic mass] 30.0 pg Normal 25.9-34.0 [facility] Comment on above: Performed By: #### C BC #### [facility] [address] [place] [address] Dr. More Restrepo MCHC (RBC) [Mass/Vol] 34.2 g/dL Normal 29.9-35.2 [facility] Comment on above: Performed By: #### C BC #### [facility] [address] [place] [address] Dr. More Restrepo MCV (RBC) [Entitic vol] 87.6 fL Normal 80.0-94.0 [facility] Comment on above: Performed By: #### C BC #### [facility] [address] [place] [address] Dr. More Restrepo MONO # 0.7 103/ul Normal 0.3-0.8 [facility] Comment on above: Performed By: #### C BC #### [facility] [address] [place] [address] Dr. More Restrepo Monocytes/100 WBC (Bld) 9.7 % Normal 1.7-12.0 [facility] Comment on above: Performed By: #### C BC #### [facility] [address] [place] [address] Dr. More Restrepo NEUT # 2.9 103/ul Normal 1.4-6.5 [facility] Comment on above: Performed By: #### C BC #### [facility] [address] [place] [address] Dr. More Restrepo Neutrophils/100 WBC (Bld) 40.3 % Critically low 43.0-75.0 [facility] Comment on above: Performed By: #### C BC #### [facility] [address] [place] [address] Dr. More Restrepo Platelet mean volume (Bld) [Entitic vol] 10.1 fL Normal 9.5-13.5 [facility] Comment on above: Performed By: #### C BC #### [facility] [address] [place] [address] Dr. More Restrepo PLT 301 103/ul Normal 150-450 [facility] Comment on above: Performed By: #### C BC #### [facility] [address] [place] [address] Dr. More Restrepo RBC 4.60 106/ul Critically low 4.70-6.10 [facility] Comment on above: Performed By: #### C BC #### [facility] [address] [place] [address] Dr. More Restrepo WBC 7.1 103/ul Normal 4.0-11.0 [facility] Comment on above: Performed By: #### C BC #### [facility] [address] [place] [address] HEAD WO CONon [...] HODA DUNHAM Date: 2022-06-01 08:16 Normal [facility] D-DIMERon 06-01-2022 D-DIMER 0.29 mg/L FEU Normal <=0.59 [facility] Comment on above: Performed By: #### D DIM #### [facility] [address] [place] [address] Dr. Mroe Restrepo D-DIMER COMMENTS SEE BELOW Normal [facility] Comment on above: Result Comment: Incr eases [...] hospitalization. Performed By: #### D DIM #### [facility] [address] [place] [address] Dr. More Restrepo PROF CHEM 8 (BAS METB)on Anion gap [Moles/Vol] 18.3 mmol/L Normal [facility] Comment on above: Performed By: #### C RP, BMP #### [facility] [address] [place] [address] Dr. More Restrepo Calcium [Mass/Vol] 8.6 mg/dL Normal 8.5-10.1 [facility] Comment on above: Performed By: #### C RP, BMP #### [facility] [address] [place] [address] Dr. More Restrepo Chloride [Moles/Vol] 101 mmol/L Normal 98-107 [facility] Comment on above: Performed By: #### C RP, BMP #### [facility] [address] [place] [address] Dr. More Restrepo CO2 [Moles/Vol] 24.0 mmol/L Normal 21.0-32.[address] [facility] Comment on above: Performed By: #### C RP, BMP #### [facility] [address] [place] [address] Dr. More Restrepo Creatinine [Mass/Vol] 1.11 mg/dL Normal 0.70-1.30 [facility] Comment on above: Performed By: #### C RP, BMP #### [facility] [address] [address] [address] More Restrepo EGFR-AF PARAGUAYAN >60 Normal >=[address] [facility] Comment on above: Performed By: #### C RP, BMP #### [facility] [address] [place] [address] Dr. More Restrepo EGFR-NON AF PARAGUAYAN >60 Normal >=60 [facility] Comment on above: Performed By: #### C RP, BMP #### [facility] [address] [place] [address] Dr. More Restrepo Glucose [Mass/Vol] 153 mg/dL Critically high 74-106 [facility] Comment on above: Performed By: #### C RP, BMP #### [facility] [address] [address] [address] More Restrepo Potassium [Moles/Vol] 3.3 mmol/L Critically low 3.5-5.1 [facility] Comment on above: Performed By: #### C RP, BMP #### [facility] [address] [place] [address] Dr. More Restrepo Sodium [Moles/Vol] 140 mmol/L Normal 136-145 [facility] Comment on above: Performed By: #### C RP, BMP #### [facility] [address] [address] [address] More Restrepo Urea nitrogen [Mass/Vol] 16.0 mg/dL Normal 7.0-18.0 [facility] Comment on above: Performed By: #### C RP, BMP #### [facility] [address] [place] [address] Dr. More Restrepo Urea nitrogen/Creatinin e [Mass ratio] 14.4 mg/mg Normal [facility] Comment on above: Performed By: #### C RP, BMP #### [facility] [address] [place] [address] Dr. More Restrepo TROPONIN, HIGH SENSITIVITYon 06-01-2022 HSTROP 5.9 pg/mL Normal 4.0-76.1 [facility] Comment on above: Result Comment: CUT- OFF POINTS HAVE BEEN ESTABLISHED BASED ON THE FOURTH UNIVERSAL DEFINITIONS OF MYOCARDIAL INFARCTION. THE UPPER REFERENCE LIMIT (URL) OF TROPONIN, DEFINED THE 99TH PERCENTILE OF cTnI DISTRIBUTION IN A REFERENCE POPULATION, HAS BEEN CONFIRMED THE DECISION THRESHOLD FOR [place] DIAGNOSIS. Performed By: #### C RP, BMP #### [facility] [address] [place] [address] Dr. More Restrepo XR CHEST 1 Von 06-01-2022 XR CHEST 1 V CHEST X-RAY, 1 VIEW HISTORY: Near syncope. COMPARISON: None. FINDINGS: The heart, kim, and mediastinum are unremarkable. The lungs are grossly clear. There are no pleural effusions. There is no pneumothorax. IMPRESSION: No evidence of acute cardiopulmonary disease. Electronically authenticated by: HODA DUNHAM Date: 2022-06-01 08:15 Normal [facility] CBC AUTO DIFFon 03-26-2022 BASO # 0.0 103/ul Normal 0.0-0.1 [facility] Comment on above: Performed By: #### C BC #### [facility] [address] [place] [address] Dr. More Restrepo Basophils/100 WBC (Bld) 0.3 % Normal 0.2-2.0 [facility] Comment on above: Performed By: #### C BC #### [facility] [address] [place] [address] Dr. More Restrepo EO # 0.1 103/ul Normal 0.0-0.7 [facility] Comment on above: Performed By: #### C BC #### [facility] [address] [place] [address] Dr. More Restrepo Eosinophils/100 WBC (Bld) 1.4 % Normal 0.9-7.0 [facility] Comment on above: Performed By: #### C BC #### [facility] [address] [place] [address] Dr. More Restrepo Erythrocyte distribution width (RBC) [Ratio] 11.7 % Normal 11.0-15.0 [facility] Comment on above: Performed By: #### C BC #### [facility] [address] [place] [address] Dr. More Restrepo Hematocrit (Bld) [Volume fraction] 42.6 % Normal 42.0-54.0 [facility] Comment on above: Performed By: #### C BC #### [facility] [address] [place] [address] Dr. More Restrepo Hemoglobin (Bld) [Mass/Vol] 14.3 g/dL Normal 14.0-18.0 [facility] Comment on above: Performed By: #### C BC #### [facility] [address] [place] [address] Dr. More Restrepo IG # 0.05 10e3/ul Critically high 0.00-0.03 [facility] Comment on above: Performed By: #### C BC #### [facility] [address] [place] [address] Dr. More Restrepo IG % 0.8 % Critically high 0.0-0.5 [facility] Comment on above: Performed By: #### C BC #### [facility] [address] [place] [address] Dr. More Restrepo LYMPH # 1.5 103/ul Normal 1.2-3.8 [facility] Comment on above: Performed By: #### C BC #### [facility] [address] [place] [address] Dr. More Restrepo Lymphocytes/100 WBC (Bld) 24.8 % Normal 20.5-60.0 [facility] Comment on above: Performed By: #### C BC #### [facility] [address] [place] [address] Dr. More Restrepo MANUAL DIFF REQ NO Normal [facility] Comment on above: Performed By: #### C BC #### [facility] [address] [address] [address] More Restrepo MCH (RBC) [Entitic mass] 29.6 pg Normal 25.9-34.0 [facility] Comment on above: Performed By: #### C BC #### [facility] [address] [place] [address] Dr. More Restrepo MCHC (RBC) [Mass/Vol] 33.6 g/dL Normal 29.9-35.2 [facility] Comment on above: Performed By: #### C BC #### [facility] [address] [place] [address] Dr. More Restrepo MCV (RBC) [Entitic vol] 88.2 fL Normal 80.0-94.0 [facility] Comment on above: Performed By: #### C BC #### [facility] [address] [place] [address] Dr. More Restrepo MONO # 0.5 103/ul Normal 0.3-0.8 [facility] Comment on above: Performed By: #### C BC #### [facility] [address] [place] [address] Dr. More Restrepo Monocytes/100 WBC (Bld) 8.8 % Normal 1.7-12.0 [facility] Comment on above: Performed By: #### C BC #### [facility] [address] [place] [address] Dr. More Restrepo NEUT # 3.8 103/ul Normal 1.4-6.5 [facility] Comment on above: Performed By: #### C BC #### [facility] [address] [place] [address] Dr. More Restrepo Neutrophils/100 WBC (Bld) 63.9 % Normal 43.0-75.0 [facility] Comment on above: Performed By: #### C BC #### [facility] [address] [place] [address] Dr. More Restrepo Platelet mean volume (Bld) [Entitic vol] 9.4 fL Critically low 9.5-13.5 [facility] Comment on above: Performed By: #### C BC #### [facility] [address] [address] [address] More Restrepo PLT 265 103/ul Normal 150-450 [facility] Comment on above: Performed By: #### C BC #### [facility] [address] [place] [address] Dr. More Restrepo RBC 4.83 106/ul Normal 4.70-6.10 [facility] Comment on above: Performed By: #### C BC #### [facility] [address] [place] [address] Dr. More Restrepo WBC 5.9 103/ul Normal 4.0-11.0 [facility] Comment on above: Performed By: #### C BC #### [facility] [address] [place] [address] Dr. More Restrepo CRPon 03-26-2022 CRP 0.5 mg/dL Normal <=1.0 [facility] Comment on above: Performed By: #### C RP, BMP #### [facility] [address] [place] [address] Dr. More Restrepo D-DIMERon 03-26-2022 D-DIMER 0.19 mg/L FEU Normal <=0.59 [facility] Comment on above: Performed By: #### D DIM #### [facility] [address] [place] [address] Dr. More Restrepo D-DIMER COMMENTS SEE BELOW Normal [facility] Comment on above: Result Comment: Incr eases [...] hospitalization. Performed By: #### D DIM #### [facility] [address] [place] [address] Dr. More Restrepo PROF CHEM 8 (BAS METB)on Anion gap [Moles/Vol] 8.6 mmol/L Normal [facility] Comment on above: Performed By: #### C RP, BMP #### [facility] [address] [place] [address] Dr. More Restrepo Calcium [Mass/Vol] 8.7 mg/dL Normal 8.5-10.1 [facility] Comment on above: Performed By: #### C RP, BMP #### [facility] [address] [place] [address] Dr. More Restrepo Chloride [Moles/Vol] 104 mmol/L Normal 98-107 [facility] Comment on above: Performed By: #### C RP, BMP #### [facility] [address] [place] [address] Dr. More Restrepo CO2 [Moles/Vol] 29.4 mmol/L Normal 21.0-32.0 [facility] Comment on above: Performed By: #### C RP, BMP #### [facility] [address] [place] [address] Dr. More Restrepo Creatinine [Mass/Vol] 0.94 mg/dL Normal 0.70-1.30 [facility] Comment on above: Performed By: #### C RP, BMP #### [facility] [address] [place] [address] Dr. More Restrepo EGFR-AF PARAGUAYAN >60 Normal >=60 [facility] Comment on above: Performed By: #### C RP, BMP #### [facility] [address] [place] [address] Dr. More Restrepo EGFR-NON AF PARAGUAYAN >60 Normal >=60 [facility] Comment on above: Performed By: #### C RP, BMP #### [facility] [address] [place] [address] Dr. More Restrepo Glucose [Mass/Vol] 97 mg/dL Normal 74-106 [facility] Comment on above: Performed By: #### C RP, BMP #### [facility] [address] [place] [address] Dr. More Restrepo Potassium [Moles/Vol] 4.0 mmol/L Normal 3.5-5.1 [facility] Comment on above: Performed By: #### C RP, BMP #### [facility] [address] [place] [address] Dr. More Restrepo Sodium [Moles/Vol] 138 mmol/L Normal 136-145 [facility] Comment on above: Performed By: #### C RP, BMP #### [facility] [address] [place] [address] Dr. More Restrepo Urea nitrogen [Mass/Vol] 12.0 mg/dL Normal 7.0-18.0 [facility] Comment on above: Performed By: #### C RP, BMP #### [facility] [address] [place] [address] Dr. More Restrepo Urea nitrogen/Creatinin e [Mass ratio] 12.8 mg/mg Normal [facility] Comment on above: Performed By: #### C RP, BMP #### [facility] [address] [place] [address] Dr. More Restrepo SED RATE [facility] 2021 SED RATE 16 mm/hr Critically high <=15 [facility] Comment on above: Performed By: #### S EDR #### [facility] [address] [place] [address] Dr. More Restrepo XR ANKLE LT MIN [...] NILESH DELUCA Date: 2022-03-26 04:21 Normal [facility] [employer] Quick Testingon 2020 Result Positive [facility] Other XR humerus LT*on 07-31-2020 XR humerus LT* [facility] [place] [address] XRay Report Signed Patient: Av Martinez MR#: [id number] : 1985 Acct:[id number] Age/Sex: 35 / F ADM Date: 07/31/20 Loc: XDCLY Room: Type: [facility] Attending Dr: Anna ROGER Ordering Provider: ANNA [...] Corbett Jr., M.D.07/31/2020 5:17 PM Dictation Location: [place] [address] Transcribed By: [facility] 07/31/201716 Dictated By: Eber Corbett Jr, MD 07/31/201714 Signed By: 07/31/201716 [facility] Vital Signs Date Time Vital Sign Value Performing Clinician Facility 04-24-2023 13:45-0500 Body height 175.26 cm Kalyani Gamble Other [facility] Other 04-24-2023 13:45-0500 Body mass index (BMI) [Ratio] 37.65 kg/m2 Kalyani Gamble Other [facility] Other 04-24-2023 13:45-0500 Body temperature 98.1 [degF] Kalyani Gamble Other [facility] Other 04-24-2023 13:45-0500 Body weight 115.67 kg Kalyani Gamble Other [facility] Other 04-24-2023 13:45-0500 Respiratory rate 19 /min Kalyani Mavis Other [facility] Other 04-24-2023 13:45-0500 SaO2% (BldA) [Mass fraction] 96 % Kalyani Mavis Other [facility] Other 04-22-2021 13:15-0500 Body height 175.26 cm Malenaethan Gardner Other [facility] Other 04-22-2021 13:15-0500 Body mass index (BMI) [Ratio] 35.44 kg/m2 Ginger Gardner Other [facility] Other 04-22-2021 13:15-0500 Body temperature 97.6 [degF] Ginger Gardner Other [facility] Other 04-22-2021 13:15-0500 Body weight 108.86 kg Ginger Gardner Other [facility] Other 04-22-2021 13:15-0500 Respiratory rate 16 /min Ginger Gardner Other [facility] Other 04-22-2021 13:15-0500 SaO2% (BldA) [Mass fraction] 95 % Ginger Gardner Other [facility] Other 02-24-2021 14:15-0400 Body height 175.26 cm Nathalia Salazar Other [facility] Other 02-24-2021 14:15-0400 Body mass index (BMI) [Ratio] 35.44 kg/m2 Nathalia Salazar Other [facility] Other 02-24-2021 14:15-0400 Body temperature 98.8 [degF] Nathalia Salazar Other [facility] Other 02-24-2021 14:15-0400 Body weight 108.86 kg Nathalia Salazar Other [facility] Other 02-24-2021 14:15-0400 SaO2% (BldA) [Mass fraction] 97 % Nathalia Salazar Other [facility] Other Encounters Encounter Date Encounter Type Care Provider Facility Start: 03-15-2024 End: 03-15-2024 ambulatory Radha L Adeline Facility[facility] Start: 08-19-2023 End: 08-19-2023 ambulatory Radha L Adeline Facility[facility] Start: 06-02-2023 End: 06-02-2023 ambulatory Radha L Adeline Facility:[facility] Start: 05-16-2023 End: 05-16-2023 ambulatory Radha L Adeline Facility:[facility] Start: 05-06-2023 End: 05-06-2023 ambulatory Radha L Adeline Facility:[facility] Start: 04-24-2023 End: 04-24-2023 ambulatory Kalyani Gamble Other [facility] Other Start: 04-24-2023 Office outpatient vi sit 25 minutes Kalyani Gamble [facility] Start: 06-01-2022 End: 06-01-[address] CANDIDO GERMAIN Facility:[facility] Start: 03-26-2022 End: 03-26-[address] CANDIDO GERMAIN Facility:[facility] Start: 04-22-2021 End: 04-22-2021 ambulatory Ginger Gardner Other [facility] Other Start: 04-22-2021 Office outpatient vi sit 15 minutes Ginger Gardner [facility] Start: 02-24-2021 Office outpatient vi sit 15 minutes Nathalia Marie [facility] Payers Date Payer Category Payer Unknown [id number] 2.16.84 [id number] 1985 Unknown [id number] 2.16.84 [id number] 1985 Unknown [id number] 2.16.8 [id number] 1985 Unknown [id number] 2.16.8 [id number] 1985 Unknown [id number] 2.16.8 [id number] 1985 Unknown [id number] 2.16.8 [id number] 1985 Unknown [id number] 2.16.8 [id number] [facility] [id number] Social History Date Type Detail Facility Unknown if ever smoked [facility] Other Sex Assigned At Sex Assigned At Bir th [facility] Other Evaluation note 04-24-2023 Note Date & [...] or worsen. All questions and concerns addressed. [facility] Other Evaluation note 04-22-2021 Note Date & [...] Patient care instructions given in writting by [facility] Care At Home document. [facility] Other Evaluation note 02-24-2021 Note Date & [...] Patient care instructions given in writting by [facility] Care At Home document. [facility] Other History general Narrative - Reported Note Date & Type Note Facility History general Narrative - Reported Type Medical History anxiety [facility] Other Summary Purpose Family History No Family History Records FoundNo Family History Records FoundNo Family History Records Found Advance Directives No Advanced Directives Records FoundNo Advanced Directives Records FoundNo Advanced Directives Records Found Additional Source Comments INFORMATION SOURCE (unrecogn ized section and content) DATE CREATED AUTHOR 05/14/2021 [facility] DATE CREATED AUTHOR AUTHOR'S ORGANIZ ATION 06/04/2022 [facility] DATE CREATED AUTHOR AUTHOR'S ORGANIZ ATION 04/10/2024 [facility] REASON FOR VISIT (unrecogniz ed section [...] BE BASED ON THE PRIMARY CLINICAL RECORDS. [employer] [facility]. provides no warranty or guarantee of the accuracy or completeness of information in this document.
[2024-05-22 23:06] VITALS: BP 144/97; PULSE 109; TEMP 37; O2SAT 94; BMI 35.4
[2024-05-22 23:16] VITALS: O2SAT 98
--- NOTE | 2024-05-22 23:18 | ED.URI1 ---
HPI - URI/Sore Throat General Chief Complaint: Upper Respiratory Infection Stated Complaint: HEADACHE, SORE THROAT Time Seen by Provider: 05/22/24 23:09 Source: patient Limitations: no limitations History of Present Illness HPI Narrative: 39-year-old male presents for 2-day history of headache and sore throat. He has no cough or chest pain or shortness of breath. He has not been around any ill people to his knowledge. No known fever. Related Data Previous Rx's ?Medication ?Instructions ?Recorded amoxicillin 500 mg capsule 500 mg PO TID 10 days #30 caps 05/22/24 Allergies Allergy/AdvReac Type Severity Reaction Status Date / Time sulfamethoxazole (From AdvReac Unknown Unknown Verified 05/22/24 23:12 Bactrim) trimethoprim (From Bactrim) AdvReac Unknown Unknown Verified 05/22/24 23:12 Review of Systems ROS Narrative A ten point review of systems is negative except as noted above. PFSH PFSH Social History Little interest or pleasure in doing things: not at all Feeling down, depressed, or hopeless: not at all Exam Narrative Exam Narrative: Nurses note and vital signs reviewed and patient is not hypoxic. General: The patient appears well and in no apparent distress. Patient is resting comfortably on cart. Skin: Warm, dry, no pallor noted. There is no rash noted. Head: Normocephalic, atraumatic Eye: Normal conjunctiva, no drainage Ears, Nose, Mouth, and Throat: oral mucosa is moist. Nares patent. No pharyngeal erythema or exudate. Uvula midline. He is handling his oral secretions well. Cardiovascular: Regular Rate and Rhythm Respiratory: Patient is in no distress, no accessory muscle use, lungs are clear to auscultation, no wheezing, rales or rhonchi Back: non-tender GI: Soft and nontender Musculoskeletal: The patient has no evidence of calf tenderness, no pitting edema, symmetrical pulses noted bilaterally Neurological: A&O, normal speech Psychiatric: Cooperative Constitutional Vital Signs, click to edit/add: Last Vital Signs Temp 98.6 F 05/22/24 23:06 Pulse 109 H 05/22/24 23:06 Resp 18 05/22/24 23:06 BP 144/97 H 05/22/24 23:06 Pulse Ox 98 05/22/24 23:16 O2 Del Method Room Air 05/22/24 23:16 Course Vital Signs Vital signs: Vital Signs Temperature 98.6 F 05/22/24 23:06 Pulse Rate 109 H 05/22/24 23:06 Respiratory Rate 18 05/22/24 23:06 Blood Pressure 144/97 H 05/22/24 23:06 Pulse Oximetry 94 L 05/22/24 23:06 Oxygen Delivery Method Room Air 05/22/24 23:06 Temperature 98.6 F 05/22/24 23:06 Pulse Rate 109 H 05/22/24 23:06 Respiratory Rate 18 05/22/24 23:06 Blood Pressure 144/97 H 05/22/24 23:06 Pulse Oximetry 98 05/22/24 23:16 Oxygen Delivery Method Room Air 05/22/24 23:16 MDM - URI/Sore Throat MDM Narrative Medical decision making narrative: Strep test is positive and he was given his first dose of amoxicillin here and prescribed same. COVID and influenza are negative. Treatment diagnosis and follow-up were discussed with the patient. Differential Diagnosis Differential diagnosis: Likely upper respiratory infection, viral infection, influenza and other (COVID, strep throat) Lab Data Attestation: I reviewed the patient's lab results. Labs: Lab Results 05/22/24 Range/Units 23:15 Influenza Type A Ag Negative Influenza Type B Ag Negative SARS-CoV-2 Ag (CV2AG) Negative (NEGATIVE) Streptococcus Screen Positive A Discharge Plan Discharge Chief Complaint: Upper Respiratory Infection Clinical Impression: Strep throat Patient Disposition: Home, Self-Care Time of Disposition Decision: 23:46 Condition: Good Mode of Transportation: Private Vehicle Prescriptions / Home Meds: New amoxicillin 500 mg capsule 500 mg PO TID 10 Days Qty: 30 0RF Print Language: Micronesian Instructions: Strep Throat (ED) Referrals: PANCHO SHER [Primary Care Provider] - 1 week
[2024-05-22 23:39] LABS: Influenza Virus A Antigen Negative; Influenza Virus B Antigen Negative; Internal Control Within Normal Limits; SARS-CoV-2 Ag NEGATIVE (NEGATIVE); Strep A Antigen Screen Positive
[2024-05-22] MEDS: AMOXICILLIN 500 MG CAPSULE PO (23:56)
[2024-05-22 23:59] VITALS: BP 120/78
== END 2024-05-23 00:01 | disposition home or self-care (01) ==
PROVIDERS: Emergency Provider Emergency Medicine; PCP Nurse Practitioner
DX: J02.0 Streptococcal pharyngitis (principal)
CPT/HCPCS: 87804; 87811; 87880; 99285

== ENCOUNTER 2025-03-21 07:31 | Emergency (ER) | payer BC, SELFPAY ==
[2025-03-21] VITALS (9 sets, daily range): BP systolic 130–154; BP diastolic 78–110; PULSE 45–87; TEMP 36.7; O2SAT 97–100; BMI 36.9
--- NOTE | 2025-03-21 07:47 | ECG_ITS ---
[facility] Test Date: 2025-03-21 Pat Name: VILMA MARTINEZ Department: Room: - Gender: Male Laminator Hand: : 1985 Requested By: Order Number: [id number] Reading MD: MAEVE LEONARDO M.D. Measurements Intervals Cisco Rate: 84 P: 45 GA: 172 QRS: 45 QRSD: 90 T: 37 QT: 364 QTc: 405 Interpretive Statements 1100 Sinus rhythm 9110 normal ECG Compared to ECG 06/01/2022 06:33:01 No significant changes Electronically Signed On 03-21-2025 18:04:30 EDT by MAEVE LEONARDO M.D.
--- NOTE | 2025-03-21 07:47 | XR_ITS ---
The [place] [id number] Patient Name: VILMA MARTINEZ MRN: [id number] date: 1985 Sex: M Assigned Patient Location: ED.MAIN Current Patient Location: ED.MAIN Accession/Order Number: [id number] Exam Date: 03/21/2025 08:05 Report Date: 03/21/2025 08:19 At the request of: ALEX UP MD Procedure: XR chest 1V PORTABLE AP ERECT CHEST 0805 hours CLINICAL HISTORY: Transient chest pain COMPARISON: 05/16/2023 The heart is top normal in size. There is no vascular congestion. The lungs, as visualized, are clear. There is no effusion or pneumothorax. The osseous structures are intact. XR/XR chest 1V IMPRESSION: NO ACUTE FINDINGS Impression dictated by: Myrtle Galvan M.D. 03/21/2025 8:19 AM Dictation Location: [place] [address] Electronically authenticated by: [id number] Date: 03/21/2025 08:19
[2025-03-21 08:08] LABS: Hematocrit 41.7 % (42.0-54.0); Hemoglobin 14.2 g/dL (14.0-18.0); Immature Granulocytes Abs Auto 0.03 10^3/uL (0.00-0.03); Immature Granulocytes Pct Auto 0.5 % (0.0-0.5); Lymphocytes Absolute Auto 2.6 10^3/uL (1.2-3.8); Mean Corpuscular HGB Conc 34.1 g/dL (29.9-35.2); Mean Corpuscular Hemoglobin 30.3 pg (25.9-34.0); Mean Corpuscular Volume 89.1 fL (80.0-94.0); Platelet Count 277 10^3/uL (150-450); Red Blood Count 4.68 10^6/uL (4.70-6.10); White Blood Count 6.1 10^3/uL (4.0-11.0)
--- OUTSIDE RECORDS SUMMARY | 2025-03-21 08:10 | XMS_ITS | CCD ---
Author Organization [facility] Care Team Providers Care Machining Associate Name Role Phone Nathalia Salazar Unavailable Ginger [...] Unavailable Adeline, Radha Nelson Attending Unavailable AdelineRadha mcconnell Attending Unavailable AdelineRadha mcconnell Attending Unavailable JARRED ORR Attending Unavailable Allergies Allergy ClassificationReported Allergen(s)Allergy TypeDate of OnsetReaction(s) Facility (3 sources)Sulfamethoxazole / [facility]ethoprimDrug [facility] Other (2 sources)sulfaSALAzineDrug AllergyAd[facility]Health [facility] Other (1 source)Sulfamethoxazole / TrimethoprimDrug [id number] (1 source)Sulfonamides (Antibiotic)Drug allergy (disorder)[id number] (1 source)Substance with sulfonamide structure and antibacterial mechanism of action (substance)Drug allergyAdvent[facility] Other (1 source)Sulfonamides (Antibiotic); Translations: [sulfa drugs]Propensity to adverse reactions (disorder)[facility] Repository Medications Current Medications MedicationDrug Class(es)DatesSig (Normalized)Sig (Original)[id number] 200 actuat albuterol 0.09 mg/actuat metered dose inhaler (3 sources)beta2-Adrenergic AgonistStart: 76-21-0690nwry 2 puff(s) by inhalation every four hours as neededAlbuterol Sulfate HFA 108 (90 Base) MCG/ACT 2 puffs as needed Inhalation every 4 hrs Mar, ActiveStart: 97-52-3537anwc 2 puff(s) by inhalation four times daily as neededAlbuterol Sulfate HFA 108 (90 Base) MCG/ACT 2 puffs Inhalation qid prn Feb, Not-Takingdextromethorphan hydrobromide 15 mg / guaiFENesin 400 mg / pseudoephedrine hydrochloride 60 mg oraltablet (1 source)alpha-Adrenergic Agonist, Uncompetitive T-yrgqli-Q-aspartate Receptor Antagonist, Sigma-1 AgonistStart: 11-09-8536fnyf 1 tablet by mouth every four hoursCapmist DM 60-15-400 MG 1 tablet as needed Orally every 4 hours for 10 days Mar, Active Completed/Discontinued Medications MedicationDrug Class(es)DatesSig (Normalized)Sig (Original)predniSONE 20 mg oral tablet (2 sources)Start: 82-88-4988iker 1 tablet by mouth every twelve hourspredniSONE 20 MG 1 tablet Orally bid for 5 day(s) Feb, Not-Taking Problems Active Problems Problem ClassificationProblemDateDocumented DateEpisodic/ChronicAnxiety disorders (3 sources)Generalized anxiety disorder; Translations: [Generalized anxiety disorder]ChronicOther non-traumatic joint disorders (4 sources)Pain in left ankle and joints of left foot; Translations: [PAIN IN LEFT ANKLE]Onset: 06-95-2126VqdebywwZymjy upper respiratory infections (3 sources)Acute pharyngitis, unspecified; Translations: [Acute upper respiratory infection, unspecified]Onset: 02-24-2021 Resolved: 18-21-3811PfpwjueeKgxcctyof-related disorders (1 source)Nicotine dependence, cigarettes, uncomplicated; Translations: [NICOTINE DEPEND CIGARETTES UNCOMP]Onset: 61-61-3158TjxsfezJvaqwtu (4 sources)Syncope and collapse; Translations: [SYNCOPE AND COLLAPSE]Onset: 40-68-7884Aihjdznm Past or Other Problems Problem ClassificationProblemDateDocumented DateEpisodic/ChronicChronic obstructive pulmonary disease and bronchiectasis (1 source)Bronchitis, not specified as acute or chronic; Translations: [Bronchitis J40]Onset: 02-24-2021 Resolved: 70-54-2971EnomchhcPxfpdtsikwnkb and screening for infectious disease (2 sources)Contact with and (suspected) exposure to other viral communicable diseases; Translations: [Contact with and (suspected) exposure to other viral communicable diseases Z20.828]Onset: 02-24-2021 Resolved: 71-39-0632FowlceptJlyib infection (1 source)COVID-19Onset: 04-22-2021 Resolved: 04-22-2021 Results Test NameValueInterpretationReference RangeFacilityFamily Medicine Office/Clinic Noteon [id number] Medicine Office/Clinic NoteFamily Medicine Office/Clinic Note HPI Staff Pt is here for right knee pain, slightly swollen Onset: banged it at work, swollen a little bit swollen He wore a brace the next day Took Tylenol 3-4 days ago, Pain when bending History of Present Illness pt presents with right knee pain Review of Systems PHQ Score Initial Depression Screen Score: 0 SCORE Physical Exam Vitals & Measurements T: 36.4 ???C(Temporal Artery) HR: 112(Peripheral) RR: 18 BP: 124/84 SpO2: 98% HT: 67 in HT: 170.0 cm WT: 117.1 kg WT: 258.161 lb BMI: 40.52 General: alert, no acute distress ENMT: oral mucosa moist, no pharyngeal erythema or exudate Cardiovascular: regular rate and rhythm, normal peripheral perfusion Respiratory: Lungs CTA, respirations non labored Extremities: no deformity, no trauma Neurological: oriented x 4, LOC appropriate for age, CN II-XII intact, motor strength equal & normal bilaterally, speech normal Assessment/Plan 1. Right knee pain (M25.561: Pain in right knee) pt bumped his knee at work. had severe pain and some swelling for 2 days. it has improved over the last 3 days. will continue to monitor. he will use het and ibuprofen. RTC as needed 2. BMI 40.0-44.9, adult (Z68.41: Body mass index [BMI] 40.0-44.9, adult) BMI education given 3. 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 Household tobacco concerns: Yes., 02/17/2025 Family History Cancer: Grandparent. Diabetes mellitus type 2: Mother. Hypertension: Mother and Grandparent. Hyperthyroidism: Grandparent. Immunizations Vaccine Date Status influenza virus vaccine, inactivated 04/12/2013 Recorded hepatitis B pediatric vaccine 08/02/2002 Recorded poliovirus vaccine, inactivated 04/30/2002 Recorded DTaP, unspecified formulation 04/30/2002 Recorded Td(adult) unspecified formulation 01/08/2002 Recorded hepatitis B pediatric vaccine 01/08/2002 Recorded measles/mumps/rubella virus vaccine 06/12/1995 RecordedSelect [facility] ShawComment on above:Result Comment: Electronically Signed By: Radha Umaña\.br\Date and Time Signed: 02/17/25 15:32 EDTAmbulatory Visit Summary on [id number] Visit SummaryAmbulatory Visit Summary AV MARTINEZ :1985 Visit Date:10/27/2024 Ambulatory Visit Instructions Your Diagnosis Sore throat Post-nasal drainage Cough Your Care Team Attending Physician - Radha Umaña Primary Care Physician - Radha Umaña This Is Your Medications List benzonatate (benzonatate 200 mg oral capsule) methylPREDNISolone (Medrol 4 mg Tab) Discharge Vitals Temperature (Temporal Artery) 36.4 ???C Heart Rate (Peripheral) 68 Respiratory Rate 16 Blood Pressure 126/78 Height 170 cm Height 67 in Weight 119.4 kg Weight 263.232 lb BMI 41.31 Medications What How Much When Why Instructions New benzonatate (benzonatate 200 mg oral capsule) 1 Capsules By Mouth 3 times a day Sore throat Post-nasal drainage Cough Duration: 7 Days Pickup at [facility]/pharmacy #[id number] New methylPREDNISolone (Medrol 4 mg Tab) 1 Packets By Mouth As Directed Sore throat Post-nasal drainage Cough Duration: 6 Days as directed on package labeling Pickup at [facility]/pharmacy #[id number] Pharmacy Information [facility]/pharmacy #[id number]: [address], [place] [phone] Allergies sulfa drugs (Hives) Problems Ongoing - Any problem that you are currently receiving treatment for. 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 Please share your experience with us by completing your survey. We appreciate your feedback and thank you for choosing us for your care. [facility] Medicine Office/Clinic Noteon [id number] Medicine Office/Clinic NoteSaint [facility] Office/Clinic Note HPI Staff Av is a 39 year old male for sore throat drainage and cough x 3days denies fever, chills or body aches. has similar symptoms History of Present Illness pt c/o sore throat , cough and drainage for 3 days Review of Systems PHQ Score Initial Depression Screen Score: 0 SCORE Physical Exam Vitals & Measurements T: 36.4 ???C(Temporal Artery) HR: 68(Peripheral) RR: 16 BP: 126/78 HT: 170 cm HT: 67 in WT: 119.4 kg WT: 263.232 lb BMI: 41.31 General: alert, no acute distress ENMT: oral mucosa moist, no pharyngeal erythema or exudate Cardiovascular: regular rate and rhythm, normal peripheral perfusion Respiratory: Lungs CTA, respirations non labored Extremities: no deformity, no trauma Neurological: oriented x 4, LOC appropriate for age, CN II-XII intact, motor strength equal & normal bilaterally, speech normal Assessment/Plan 1. Sore throat (J02.9: Acute pharyngitis, unspecified) rapid strep negative in office today Ordered: benzonatate, 200 mg = 1 cap(s), Oral, TID, X 7 day(s), # 21 cap(s), Refills(s) 0, Pharmacy: [facility]/pharmacy #[id number], 170, cm, 10/27/24 9:12:00 EDT, Height/Length Dosing, 119.4, kg, 10/27/24 9:12:00 EDT, Weight Dosing methylPREDNISolone, = 1 packet(s), Oral, As Directed, as directed on package labeling, X 6 day(s), # 21 tab(s), Refills(s) 0, [id number], 170, cm, 10/27/24 9:12:00 EDT, Height/Length Dosing, 119.4, kg, 10/27/24 9:12:00 EDT, Weight Dosing 2. Post-nasal drainage (R09.82: Postnasal drip) pt encouraged to take daily allergy medicaiton Ordered: benzonatate, 200 mg = 1 cap(s), Oral, TID, X 7 day(s), # 21 cap(s), Refills(s) 0, [id number], 170, cm, 10/27/24 9:12:00 EDT, Height/Length Dosing, 119.4, kg, 10/27/24 9:12:00 EDT, Weight Dosing methylPREDNISolone, = 1 packet(s), Oral, As Directed, as directed on package labeling, X 6 day(s), # 21 tab(s), Refills(s) 0, Pharmacy: [facility]/pharmacy #[id number], 170, cm, 10/27/24 9:12:00 EDT, Height/Length Dosing, 119.4, kg, 10/27/24 9:12:00 EDT, Weight Dosing 3. Cough (R05.9: Cough, unspecified) lungs clear in office today. will send medrol dose pack and tessalon pearls. if symptoms worsen or he gets a fever. Ordered: benzonatate, 200 mg = 1 cap(s), Oral, TID, X 7 day(s), # 21 cap(s), Refills(s) 0, [id number], 170, cm, 10/27/24 9:12:00 EDT, Height/Length Dosing, 119.4, kg, 10/27/24 9:12:00 EDT, Weight Dosing methylPREDNISolone, = 1 packet(s), Oral, As Directed, as directed on package labeling, X 6 day(s), # 21 tab(s), Refills(s) 0, Pharmacy: [facility]/pharmacy #[id number], 170, cm, 10/27/24 9:12:00 EDT, Height/Length Dosing, 119.4, kg, 10/27/24 9:12:00 EDT, Weight Dosing 4. 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 BMI 40.0-44.9, adult Bronchitis Congestion of nasal sinus Cough Daytime sleepiness Fluid level behind tympanic membrane of both ears Gasping for breath Left otitis media Loud snoring Morbid obesity with BMI of 40.0-44.9, adult Nasal congestion Post-nasal drainage Sore throat Well adult exam Wheezing on expiration Historical No qualifying data Medications benzonatate 200 mg oral capsule, 200 mg= 1 cap(s), Oral, TID Medrol 4 mg Tab, 1 packet(s), Oral, As Directed Allergies sulfa drugs (Hives) Social History Alcohol - No Risk, 11/25/2022 Never., 03/15/2024 Substance Abuse Never., 03/15/2024 Tobacco - Medium Risk, 11/25/2022 chew 1/2 can Tobacco Use:. Household tobacco concerns: Yes., 10/27/2024 Family History Cancer: Grandparent. Diabetes mellitus type 2: Mother. Hypertension: Mother and Grandparent. Hyperthyroidism: Grandparent. Immunizations Vaccine Date Status influenza virus vaccine, inactivated 04/12/2013 Recorded hepatitis B pediatric vaccine 08/02/2002 Recorded poliovirus vaccine, inactivated 04/30/2002 Recorded DTaP, unspecified formulation 04/30/2002 Recorded Td(adult) unspecified formulation 01/08/2002 Recorded hepatitis B pediatric vaccine 01/08/2002 Recorded measles/mumps/rubella virus vaccine 06/12/1995 RecordedNoMer[facility] HospitalComment on above:Result Comment: Electronically Signed By: Radha Umaña\.br\Date and Time Signed: 10/27/24 11:07 EDTFamily Medicine Office/Clinic Noteon [phone] Medicine Office/Clinic NoteFamily Medicine Office/Clinic Note HPI Staff Av is a 39 year old male presenting with sore throat Pt was here 08/12/24 negative for stept, covid and flu onset: 9 days sinus congestion: yes Post nasal drainage: no swollen nodes- red/ white spots- hasn't looked fever/chills- no body aches- no nausea/ vomiting- n0 cough- yes ear pain: no allergies- yes medication taken- cough drops History of Present Illness pt c/o sore throat sinus congestion Review of Systems PHQ Score Initial Depression Screen Score: 0 SCORE Physical Exam Vitals & Measurements T: 36.8 ???C(Tympanic) HR: 84(Peripheral) RR: 18 BP: 138/78 SpO2: 99% HT: 67 in HT: 170.0 cm WT: 258.161 lb WT: 117.1 kg BMI: 40.52 General: alert, no acute distress ENMT: oral mucosa moist, no pharyngeal erythema or exudate, RIght canal and TM red, MUNIR TM full of fluid Cardiovascular: regular rate and rhythm, normal peripheral perfusion Respiratory: Lungs CTA, respirations non labored Extremities: no deformity, no trauma Neurological: oriented x 4, LOC appropriate for age, CN II-XII intact, motor strength equal & normal bilaterally, speech normal Assessment/Plan 1. Left otitis media (H66.92: Otitis media, unspecified, left ear) left OM noted on exam. will treat with amoxicillin Ordered: amoxicillin, 500 mg = 1 tab(s), Oral, TID, X 7 day(s), # 21 tab(s), Refills(s) 0, [id number], 170, cm, 08/19/24 11:54:00 EDT, Height/Length Dosing, 117.1, kg, 08/19/24 11:54:00 EDT,Weight Dosing brompheniramine/dextromethorphan/PSE, 5 mL, Oral, QID for cough and congestion, 200 mL, Refill(s) 0, [id number], 170, cm, 08/19/24 11:54:00 EDT, Height/Length Dosing, 117.1, kg, 08/19/24 11:54:00 EDT, Weight Dosing methylPREDNISolone, = 1 packet(s), Oral, As Directed, as directed on package labeling, X 6 day(s), # 21 tab(s), Refills(s) 0, [id number], 170, cm, 08/19/24 11:54:00 EDT, Height/Length Dosing, 117.1, kg, 08/19/24 11:54:00 EDT, Weight Dosing 2. Fluid level behind tympanic membrane of both ears (H65.93: Unspecified nonsuppurative otitis media, bilateral) medrol dose pack ordered 3. Congestion of nasal sinus (R09.81: Nasal congestion) will send bromfed 4. BMI 40.0-44.9, adult (Z68.41: Body mass index [BMI] 40.0-44.9, adult) BMI education given Ordered: amoxicillin, 500 mg = 1 tab(s), Oral, TID, X 7 day(s), # 21 tab(s), Refills(s) 0, Pharmacy: [facility]/pharmacy #[id number], 170, cm, 08/19/24 11:54:00 EDT, Height/Length Dosing, 117.1, kg, 08/19/24 11:54:00 EDT,Weight Dosing brompheniramine/dextromethorphan/PSE, 5 mL, Oral, QID for cough and congestion, 200 mL, Refill(s) 0, [facility]/pharmacy #[id number], 170, cm, 08/19/24 11:54:00 EDT, Height/Length Dosing, 117.1, kg, 08/19/24 11:54:00 EDT, Weight Dosing methylPREDNISolone, = 1 packet(s), Oral, As Directed, as directed on package labeling, X 6 day(s), # 21 tab(s), Refills(s) 0, Pharmacy: [facility]/pharmacy #[id number], 170, cm, 08/19/24 11:54:00 EDT, Height/Length Dosing, 117.1, kg, 08/19/24 11:54:00 EDT, Weight Dosing 5. Non-smoker (Z78.9: Other specified health status) continue not smoking Ordered: amoxicillin, 500 mg = 1 tab(s), Oral, TID, X 7 day(s), # 21 tab(s), Refills(s) 0, Pharmacy: [facility]/pharmacy #[id number], 170, cm, 08/19/24 11:54:00 EDT, Height/Length Dosing, 117.1, kg, 08/19/24 11:54:00 EDT,Weight Dosing brompheniramine/dextromethorphan/PSE, 5 mL, Oral, QID for cough and congestion, 200 mL, Refill(s) 0, [facility]/pharmacy #[id number], 170, cm, 08/19/24 11:54:00 EDT, Height/Length Dosing, 117.1, kg, 08/19/24 11:54:00 EDT, Weight Dosing methylPREDNISolone, = 1 packet(s), Oral, As Directed, as directed on package labeling, X 6 day(s), # 21 tab(s), Refills(s) 0, Pharmacy: [facility]/pharmacy #[id number], 170, cm, 08/19/24 11:54:00 EDT, Height/Length Dosing, 117.1, kg, 08/19/24 11:54:00 EDT, Weight Dosing Follow-up No qualifying data available Problem List/Past Medical History Ongoing 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 Bronchitis Congestion of nasal sinus Cough Daytime sleepiness Fluid level behind tympanic membrane of both ears Gasping for breath Left otitis media Loud snoring Nasal congestion Well adult exam Wheezing on expiration Historical No qualifying data Medications amoxicillin 500 mg oral tablet, 500 mg= 1 tab(s), Oral, TID Bromfed DM oral syrup, 5 mL, Oral, QID, PRN Medrol 4 mg Tab, 1 packet(s), Oral, As Directed Allergies sulfa drugs (Hives) Social History Alcohol - No Risk, 11/25/2022 Never., 03/15/2024 Substance Abuse Never., 03/15/2024 Tobacco - Medium Risk, 11/25/2022 chew 1/2 can Tobacco Use:., 08/12/2024 Family History Cancer: Grandparent. Diabetes mellitus type 2: Mother. Hypertension: Mother and Grandparent. Hyperthyroidism: Grandparent. Immunizations Vaccine Date Status influenza virus vaccine, inactivated 04/12/2013 Recorded hepatitis B pediatric vaccine 08/02/2002 Recorded poliovirus vaccine, inactivated 04/30/2002 Recorde (more content not included)...[facility] ShawComment on above:Result Comment: Electronically Signed By: Radha Umaña\.br\Date and Time Signed: 08/19/24 13:43 EDTAmbulatory Visit Summaryon [id number] Visit SummaryAmbulatory Visit Summary AV MARTINEZ James :1985 Visit Date:08/12/2024 Ambulatory Visit Instructions Your Diagnosis Sore throat Your Care Team Attending Physician - JARRED ORR CNP Primary Care Physician - Radha Umaña Discharge Vitals Temperature (Oral) 36.2 ???C Heart Rate (Peripheral) 76 Respiratory Rate 20 Blood Pressure 122/84 Height 170.0 cm Height 67 in Weight 116.4 kg Weight 256.618 lb BMI 40.28 Allergies sulfa drugs (Hives) Problems Ongoing - [...] you for choosing us for your care. [facility] Medicine Office/Clinic Noteon [phone] Medicine Office/Clinic NoteFamily Medicine Office/Clinic Note Chief Complaint The patient presents with a sore throat. HPI Staff Av is a 39 year old male presenting with sore throat, headaches onset yesterday sinus congestion- yes swollen nodes- red/ white spots- fever/chills- chills and hot flashes body aches- yes nausea/ vomiting- no cough- yes ear pain no allergies- no medication taken- Tylenol, Honey OTC cold medicine sore throat cough drops History of Present Illness 39-year-old male patient of [facility] [employer] presenting with a sore throat. The onset of the sore throat was two nights ago, occurring late at night. The condition began with accompanying headaches and chills reported on the following day. The patient denies fever but admits to managing the headache to some degree using qgsr-zjz-jgeyvak medications dosed every six hours. His stepson recently experienced a similar sore throat. POC testing for Influenza, COVID, & Strep Throat- negative today in the office. He further reports a recurring nasal sore within his right nostril, most likely influenced by staphylococcal presence, recommend he manage this with GERMÁN, or OTC Neosporin. The condition appears to fluctuate without any serious episodes thus far and shows signs of potential viral characteristics dueto the absence of bacterial infection indicators. Review of Systems PHQ Score Initial Depression Screen Score: 0 SCORE - Constitutional: Reports chills. Denies fever. - ENT: Reports sore throat. Denies ear problems. - Respiratory: Denies coughing. - Neurological: Reports headache. Physical Exam Vitals & Measurements T: 36.2 ???C(Oral) HR: 76(Peripheral) RR: 20 BP: 122/84 SpO2: 99% HT: 170.0 cm HT: 67 in WT: 116.4 kg WT: 256.618 lb BMI: 40.28 General: alert, no acute distress ENMT: TM's clear, oral mucosa moist, yes mild pharyngeal erythema or exudate Cardiovascular: regular rate and rhythm, normal peripheral perfusion Respiratory: Lungs CTA, respirations non labored Extremities: no deformity, no trauma Neurological: oriented x 4, LOC appropriate for age speech normal Assessment/Plan 1. Sore throat (J02.9: Acute pharyngitis, unspecified) - Monitor symptoms while avoiding antibiotics due to negative test results and lack of fever. - Recommend conservative measures such as salt water gargling and cough syrup if necessary. - Plan to evaluate the condition further if symptoms continue after 7-10 days. 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 Diabetes mellitus type 2: Mother. Hypertension: Mother and Grandparent. Hyperthyroidism: Grandparent. Immunizations Vaccine Date Status influenza virus vaccine, inactivated 04/12/2013 Recorded hepatitis B pediatric vaccine 08/02/2002 Recorded poliovirus vaccine, inactivated 04/30/2002 Recorded DTaP, unspecified formulation 04/30/2002 Recorded Td(adult) unspecified formulation 01/08/2002 Recorded hepatitis B pediatric vaccine 01/08/2002 Recorded measles/mumps/rubella virus vaccine 06/12/1995 RecordedSelect [facility] ShawComment on above:Result Comment: Electronically Signed By: JARRED ORR CNP\.br\Date and Time Signed: 08/12/24 14:24 EDTAmbulatory Visit Summaryon [id number] Visit SummaryAmbulatory Visit Summary AV MARTINEZ :1985 Visit Date:03/15/2024 Ambulatory Visit Instructions Your Diagnosis Bronchitis Wheezing on expiration Loud snoring Gasping for breath Daytime sleepiness BMI 39.0-39.9,adult Exogenous obesity Your Care Team Attending Physician - Radha mUaña Primary Care Physician - Radha Umaña This [...] By Mouth As Directed Duration: 5 Days asdirected on package labeling Pickup at [facility]/pharmacy #[id number] Pharmacy Information [facility]/pharmacy #[id number]: [address], [place] [phone] Medications and Immunizations Administered Given Kenalog-40, 40 [...] you for choosing us for your care. [facility] Medicine Office/Clinic Noteon [phone] Medicine Office/Clinic NoteFapam [facility] Medicine Office/Clinic Note HPI Staff Av is [...] Daily, # 30 tab(s), Refills(s) 0, Pharmacy: [facility]/pharmacy #[id number], 170, cm, 08/19/23 14:58:00 EDT, Height/Length Dosing, 114.1, kg, 08/19/23 14:58:00 EDT, Weight Dosing 7. Exogenous obesity (E66.09: Other obesity due to excess calories) see above Orders: albuterol, 2 puff(s), Inhalation, q6hr, 8.5 gm, Refill(s) 0, [facility]/pharmacy #[id number], 170, cm, 06/02/23 14:44:00 EST, Height/Length Dosing, 112, kg, 06/02/23 14:44:00 EST, Weight Dosing azithromycin, = 1 packet(s), Oral, As Directed, as directed on package labeling, X 5 day(s), # 6 tab(s), Refills(s) 0, Pharmacy: [facility]/pharmacy #[id number], 170, cm, 03/15/24 15:03:00 EDT, Height/Length [...] vaccine 01/08/2002 Recorded measles/mumps/rubella virus vaccine 06/12/1995 RecordedNormSelect Medical TriHealth Rehabilitation HospitalComment on above:Result Comment: Electronically Signed By: Adeline SO, Radha Nelson\.br\Date and Time Signed: 03/15/24 15:20 EDTCBC AUTO DIFFon 78-65-7457YDAT #0.0 103/ulNormal0.0-0.1[facility] HospitalComment on above: Performed By: #### CBC #### [facility] [address] [place] [address] Dr. More RestrepoBasophils/100 WBC (Bld)0.6 %Normal0.2-2.0[facility] Comment on above:Performed By: #### CBC #### [facility] [address] [address] [address] More Fitch #0.1 103/ulNormal0.0-0.7The [facility]S HospitalComment on above: Performed By: #### CBC #### [facility] [address] [place] [address] Dr. More Goetzosinophils/100 WBC (Bld)1.3 %Normal0.9-7.0[facility] Comment on above:Performed By: #### CBC #### [facility] [address] [place] [address] Dr. More Goetzrythrocyte distribution width (RBC) [Ratio]11.9 %Bujizu50.0-15.0 [facility] HospitalComment on above:Performed By: #### CBC #### [facility] [address] [place] [address] Dr. More RestrepoHematocrit (Bld) [Volume fraction]40.3 %Critically low42.0-54.0 The [facility]S HospitalComment on above:Performed By: #### CBC #### [facility] [address] [place] [address] Dr. More RestrepoHemoglobin (Bld) [Mass/Vol]13.8 g/dLCritically low14.0-18.0The [facility] HospitalComment on above:Performed By: #### CBC #### [facility] [address] [place] [address] Dr. More Lawrence #0.05 10e3/ulCritically high0.00-0.03The [facility] Comment on above:Performed By: #### CBC #### [facility] [address] [place] [address] Dr. More Lawrence %0.7 %Critically high0.0-0.5The [facility] HospitalComment on above:Performed By: #### CBC #### [facility] [address] [place] [address] Dr. More Velasco #3.4 103/ulNormal1.2-3.8The [facility] HospitalComment on above:Performed By: #### CBC #### [facility] [address] [place] [address] Dr. More Wilsonhocytes/100 WBC (Bld)47.4 %Ecangb60.5-60.0The [facility] HospitalComment on above:Performed By: #### CBC #### [facility] [address] [place] [address] Dr. More CardenasUAL DIFF REQNONormalThe [facility]S HospitalComment on above: Performed By: #### CBC #### [facility] [address] [place] [address] Dr. More Mendosa (RBC) [Entitic mass]30.0 bnJdbhkq39.9-34.0The [facility] HospitalComment on above:Performed By: #### CBC #### [facility] [address] [place] [address] Dr. More Blakely (RBC) [Mass/Vol]34.2 g/zNTvxxpj52.9-35.2The [facility] HospitalComment on above:Performed By: #### CBC #### [facility] [address] [place] [address] Dr. More Blakely (RBC) [Entitic vol]87.6 jMCrncnm21.0-94.0The [facility] HospitalComment on above:Performed By: #### CBC #### [facility] [address] [place] [address] Dr. More Edwards #0.7 103/ulNormal0.3-0.8The [facility] HospitalComment on above:Performed By: #### CBC #### [facility] [address] [place] [address] Dr. More Hillsocytes/100 WBC (Bld)9.7 %Normal1.7-12.0The [facility] Comment on above:Performed By: #### CBC #### [facility] [address] [place] [address] Dr. More Bello #2.9 103/ulNormal1.4-6.5The [facility] HospitalComment on above:Performed By: #### CBC #### [facility] [address] [place] [address] Dr. More Moralesutrophils/100 WBC (Bld)40.3 %Critically low43.0-75.0The [facility] HospitalComment on above:Performed By: #### CBC #### [facility] [address] [place] [address] Dr. More Umanalet mean volume (Bld) [Entitic vol]10.1 fLNormal9.5-13.5The [facility] HospitalComment on above:Performed By: #### CBC #### [facility] [address] [address] [address] More RestrepoPLT301 103/abJdbqah898-151Gre [facility] HospitalComhelen [facility] on above: Performed By: #### CBC #### [facility] [address] [place] [address] Dr. More RestrepoRBC4.60 106/ulCritically low4.70-6.10The [facility] HospitalComment on above:Performed By: #### CBC #### [facility] [address] [place] [address] Dr. More RestrepoWBC7.1 103/ulNormal4.0-11.0The [facility] Hospitalment on above: Performed By: #### CBC #### [facility] [address] [place] [address] Dr. More RestrepoCT HEAD WO CONon 08-18-9327LL HEAD WO CONCT BRAIN WITHOUT CONTRAST HISTORY: Near syncope. COMPARISON: [...] Electronically authenticated by: HODA DUNHAM Date: 2022-06-01 08:[address] [place], [place] [address]D-DIMERon 84-92-5574V-DIMER0.29 mg/L FEUNormal<=0.59The [facility] on above:Performed By: #### DDIM #### [facility] [address] [place] [address] Dr. More RestrepoD-DIMER COMMENTSSEE BELOWNoElyria Memorial HospitalComment on above:Result Comment: Increases in D-Dimer concentration observed with thromboembolic events [...] stress, and generalized hospitalization. Performed By: #### DDIM #### [facility] [address] [place] [address] Dr. More RestrepoPROF CHEM 8 (BAS METB)on 06-32-7600Ineai gap [Moles/Vol]18.3 mmol/LNormalThe [facility] HospitalComment on above:Performed By: #### CRP, BMP #### [facility] [address] [place] [address] Dr. More RestrepoCalcium [Mass/Vol]8.6 mg/dLNormal8.5-10.1[facility] Comment on above:Performed By: #### CRP, BMP #### [facility] [address] [place] [address] Dr. More RestrepoChloride [Moles/Vol]101 mmol/AQccyxk85-114FmeCleveland Clinic Avon Hospital Comment on above:Performed By: #### CRP, BMP #### [facility] [address] [place] [address] Dr. More RestrepoCO2 [Moles/Vol]24.0 mmol/PGrfdmh73.0-32.0[facility] Comment on above:Performed By: #### CRP, BMP #### [facility] [address] [place] [address] Dr. More RestrepoCreatinine [Mass/Vol]1.11 mg/dLNormal0.70-1.30The [facility] HospitalComment on above:Performed By: #### CRP, BMP #### [facility] [address] [place] [address] Dr. More GoetzGFR-AF CITIZEN [place]>60Normal>=60The [facility] HospitalComment on above:Performed By: #### CRP, BMP #### [facility] [address] [place] [address] Dr. Yilan ChangEGFR-NON AF CITIZEN OF [place]>60Normal>=60The [facility] HospitalComment on above:Performed By: #### CRP, BMP #### [facility] [address] [place] [address] Dr. More RestrepoGlucose [Mass/Vol]153 mg/dLCritically rzaf41-185Hep [facility] HospitalComment on above:Performed By: #### CRP, BMP #### [facility] [address] [place] [address] Dr. More RestrepoPotassium [Moles/Vol]3.3 mmol/LCritically low3.5-5.1The [facility] HospitalComment on above:Performed By: #### CRP, BMP #### [facility] [address] [place] [address] Dr. More RestrepoSodium [Moles/Vol]140 mmol/DVvoenb948-639Oql [facility] Comment on above:Performed By: #### CRP, BMP #### [facility] [address] [place] [address] Dr. More RestrepoUrea nitrogen [Mass/Vol]16.0 mg/dLNormal7.0-18.0The [facility] HospitalComment on above:Performed By: #### CRP, BMP #### [facility] [address] [place] [address] Dr. More Riddle nitrogen/Creatinine [Mass ratio]14.4 mg/mgNormalThe [facility] HospitalComment on above:Performed By: #### CRP, BMP #### [facility] [address] [place] [address] Dr. More Gonzalez, HIGH SENSITIVITYon 51-43-1383XZWSIZ5.9 pg/mLNormal 4.0-76.1The [facility]S HospitalComhelen [facility]berry [facility] hospital on above:Result Comment: CUT-OFF POINTS HAVE BEEN ESTABLISHED BASED ON THE FOURTH UNIVERSAL DEFINITIONS OF MYOCARDIAL INFARCTION. THE UPPER REFERENCE LIMIT (URL) OF TROPONIN, DEFINED THE 99TH PERCENTILE OF cTnI DISTRIBUTION IN A REFERENCE POPULATION, HAS BEEN CONFIRMED THE DECISION THRESHOLD FOR [place] DIAGNOSIS.Performed By: #### CRP, BMP #### [facility] [address] [place] [address] Dr. More RestrepoXR CHEST 1 Von 57-07-9246DO CHEST 1 VCHEST X-RAY, 1 VIEW HISTORY: Near syncope. COMPARISON: None. FINDINGS: The heart, kim, and mediastinum are unremarkable. The lungs are grossly clear. There are no pleural effusions. There is no pneumothorax. IMPRESSION: No evidence of acute cardiopulmonary disease. Electronically authenticated by: HODA DUNHAM Date: 2022-06-01 08:15[facility] AUTO DIFFon 49-17-2416YHBQ #0.0 103/ulNormal0.0-0.1[facility] HospitalComment on above:Performed By: #### CBC #### [facility] [address] [place] [address] Dr. More RestrepoBasophils/100 WBC (Bld)0.3 %Normal0.2-2.0[facility] Comment on above:Performed By: #### CBC #### [facility] [address] [place] [address] Dr. More Fitch #0.1 103/ulNormal0.0-0.7The [facility] HospitalComment on above: Performed By: #### CBC #### [facility] [address] [place] [address] Dr. More Goetzosinophils/100 WBC (Bld)1.4 %Normal0.9-7.0[facility] Comment on above:Performed By: #### CBC #### [facility] [address] [place] [address] Dr. More Goetzrythrocyte distribution width (RBC) [Ratio]11.7 %Tmhxvc39.0-15.0 [facility] HospitalComment on above:Performed By: #### CBC #### [facility] [address] [place] [address] Dr. More Almanzaatocrit (Bld) [Volume fraction]42.6 %Vcsnyz31.0-54.0[facility] HospitalComment on above:Performed By: #### CBC #### [facility] [address] [place] [address] Dr. Yilan ChangHemoglobin (Bld) [Mass/Vol]14.3 g/pPXktzea54.0-18.0The [facility] HospitalComment on above:Performed By: #### CBC #### [facility] [address] [place] [address] Dr. More Lawrence #0.05 10e3/ulCritically high0.00-0.03The [facility] Comment on above:Performed By: #### CBC #### [facility] [address] [place] [address] Dr. More Lawrence %0.8 %Critically high0.0-0.5The [facility] HospitalComment on above:Performed By: #### CBC #### [facility] [address] [place] [address] Dr. More Velasco #1.5 103/ulNormal1.2-3.8The [facility] HospitalComment on above:Performed By: #### CBC #### [facility] [address] [place] [address] Dr. More Wilsonhocytes/100 WBC (Bld)24.8 %Flfopd93.5-60.0The [facility] HospitalComment on above:Performed By: #### CBC #### [facility] [address] [place] [address] Dr. More CardenasUAL DIFF REQNONormalThe [facility]S HospitalComment on above: Performed By: #### CBC #### [facility] [address] [place] [address] Dr. More Blakely (RBC) [Entitic mass]29.6 ouCaodtu68.9-34.0The [facility] HospitalComment on above:Performed By: #### CBC #### [facility] [address] [place] [address] Dr. More Blakely (RBC) [Mass/Vol]33.6 g/vFLbirhx11.9-35.2The [facility] HospitalComment on above:Performed By: #### CBC #### [facility] [address] [place] [address] Dr. More Gramajo (RBC) [Entitic vol]88.2 aQKtzdam58.0-94.0The [facility] HospitalComment on above:Performed By: #### CBC #### [facility] [address] [place] [address] Dr. More Edwards #0.5 103/ulNormal0.3-0.8The [facility] HospitalComment on above:Performed By: #### CBC #### [facility] [address] [place] [address] Dr. More Hillsocytes/100 WBC (Bld)8.8 %Normal1.7-12.0The [facility] Comment on above:Performed By: #### CBC #### [facility] [address] [place] [address] Dr. More Bello #3.8 103/ulNormal1.4-6.5The [facility] HospitalComment on above:Performed By: #### CBC #### [facility] [address] [place] [address] Dr. More Moralesutrophils/100 WBC (Bld)63.9 %Fhovhq75.0-75.0The [facility]S HospitalComment on above:Performed By: #### CBC #### [facility] [address] [place] [address] Dr. More Luke mean volume (Bld) [Entitic vol]9.4 fLCritically low 9.5-13.5The [facility] HospitalComment on above:Performed By: #### CBC #### [facility] [address] [place] [address] Dr. More RestrepoPLT265 103/mgKojrsa482-466Krm [facility] HospitalComment on above: Performed By: #### CBC #### [facility] [address] [place] [address] Dr. More RestrepoRBC4.83 106/ulNormal4.70-6.10The [facility] HospitalComment on above:Performed By: #### CBC #### [facility] [address] [place] [address] Dr. More RestrepoWBC5.9 103/ulNormal4.0-11.0The [facility] HospitalComment on above: Performed By: #### CBC #### [facility] [address] [place] [address] Dr. More RestrepoCRWei 97-97-0089MAE2.5 mg/dLNormal<=1.0[facility] Comment on above:Performed By: #### CRP, BMP #### [facility] [address] [place] [address] Dr. More Alfaro-DIMERon 83-26-6012L-DIMER0.19 mg/L FEUNormal<=0.59The [facility] HospitalComment on above:Performed By: #### DDIM #### [facility] [address] [place] [address] Dr. More Alfaro-DIMER COMMENTSSEE [facility] Community HospitalComment on above:Result Comment: Increases in D-Dimer concentration observed with thromboembolic events [...] stress, and generalized hospitalization. Performed By: #### DDIM #### [facility] [address] [place] [address] Dr. More RestrepoPROF CHEM 8 (BAS METB)on 75-34-3901Iaxwk gap [Moles/Vol]8.6 mmol/LNormalThe [facility] HospitalComment on above:Performed By: #### CRP, BMP #### [facility] [address] [place] [address] Dr. More RestrepoCalcium [Mass/Vol]8.7 mg/dLNormal8.5-10.1[facility] Comment on above:Performed By: #### CRP, BMP #### [facility] [address] [place] [address] Dr. More RestrepoChloride [Moles/Vol]104 mmol/HPkqsqm71-663Sjv [facility] Comment on above:Performed By: #### CRP, BMP #### [facility] [address] [address] [address] More RestrepoCO2 [Moles/Vol]29.4 mmol/UDwaeag61.0-32.0The [facility] Comment on above:Performed By: #### CRP, BMP #### [facility] [address] [address] [address] More RestrepoCreatinine [Mass/Vol]0.94 mg/dLNormal0.70-1.30The [facility] HospitalComment on above:Performed By: #### CRP, BMP #### [facility] [address] [place] [address] Dr. More GoetzGFR-AF CITIZEN [place]>60Normal>=60The [facility]S HospitalComment on above:Performed By: #### CRP, BMP #### [facility] [address] [address] [address] More GoetzGFR-NON AF CITIZEN [place]>60Normal>=60[facility] HospitalComment on above:Performed By: #### CRP, BMP #### [facility] [address] [place] [address] Dr. More RestrepoGlucose [Mass/Vol]97 mg/sABfhdxz31-917EsxCleveland Clinic Avon Hospital Comment on above:Performed By: #### CRP, BMP #### [facility] [address] [address] [address] More RestrepoPotassium [Moles/Vol]4.0 mmol/LNormal3.5-5.1[facility] Comment on above:Performed By: #### CRP, BMP #### [facility] [address] [address] [address] More RestrepoSodium [Moles/Vol]138 mmol/XNoupjx802-101Mmm [facility] Comment on above:Performed By: #### CRP, BMP #### [facility] [address] [place] [address] Dr. More Riddle nitrogen [Mass/Vol]12.0 mg/dLNormal7.0-18.0The [facility] HospitalComment on above:Performed By: #### CRP, BMP #### [facility] [address] [address] [address] More Riddle nitrogen/Creatinine [Mass ratio]12.8 mg/mgNormalThe [facility]S HospitalComment on above:Performed By: #### CRP, BMP #### [facility] [address] [address] [address] More Lance RATE WESTERGRENon 82-23-6798BGP RATE16 mm/hrCritically high <=15The [facility]S HospitalComment on above:Performed By: #### SEDR #### [facility] [address] [address] [address] More RestrepoXR ANKLE LT MIN 3 Von 16-03-0488ZV ANKLE LT MIN 3 VEXAM: XR ANKLE LT MIN 3 V HISTORY: [...] Electronically authenticated by: NILESH DELUCA Date: 2022-03-26 04:21Normal The [facility]S HospitalCOVID Quick Testingon 15-63-3777WmzicvImgdsolbVuenk easy2map Other XR humerus LT*on 45-03-9480FN humerus LT*[facility] [place] [address] [place] [address] XRay Report Signed Patient: Av Martinez MR#: [id number] : 1985 Acct:[id number] Age/Sex: 35 / F ADM Date: 07/31/20 Loc: XDCLY Room: Type: [facility] Attending Dr: Anna ROGER Ordering Provider: ANNA DENISE Date of Service: 07/31/20 XR/XR humerus LT*: M79.602 Copies to: ANNA DENISE [facility] Left humerus 07/31/2020. CLINICAL DATA: Upper left arm pain. No known injury. FINDINGS: 2 views of the left humerus were obtained. No acute fracture or dislocation is identified. No other bony abnormality is seen. The soft tissues appear unremarkable as visualized. XR/XR humerus LT* IMPRESSION: No visible bony abnormality. Impression dictated by: Eber Corbett Jr., M.D.07/31/2020 5:17 PM Dictation Location: [place] [place] [address] Transcribed By: [facility] 07/31/201716 Dictated By: Eber Corbett Jr, MD 07/31/201714 Signed By: 07/31/201716[facility] Vital Signs Date TimeVital SignValuePerforming RejdbhtwwRmnhzcsv79-68-2304 13:45-0500Body leqfnt879.26 cmKalyani Gamble Other [employer] Other 11-30-2023 13:45-0500Body mass index (BMI) [Ratio] 37.65 kg/n3LrvtchxzKalyani Gamble Other [employer] Other 11-30-2023 13:45-0500Body feajutxbvdo25.1 [degF] Kalyani Meraarney Other [employer] Other 11-30-2023 13:45-0500Body bwyxbm556.67 kgKalyani Gamble Other [employer] Other 11-30-2023 13:45-0500Respiratory rate19 /minKalyani Gamble Other [employer] Other 11-30-2023 13:45-4135EeZ3% (BldA) [Mass fraction]96 % Kalyani Meraarney Other [employer] Other 11-28-2021 13:15-0500Body smjajx968.26 Alysiaethan Kendra Other [employer] Other 11-28-2021 13:15-0500Body mass index (BMI) [Ratio] 35.44 kg/c1FmdylsGinger Gardner Other [employer] Other 11-28-2021 13:15-0500Body fkdzgowomao47.6 [degF]Ginger Gardner Other [employer] Other 11-28-2021 13:15-0500Body ydhnjt145.86 kgGinger Gardner Other [employer] Other 11-28-2021 13:15-0500Respiratory rate16 /minGinger Gardner Other [employer] Other 11-28-2021 13:15-2543HqR7% (BldA) [Mass fraction]95 % Ginger Gardner Other [employer] Other 10-02-2021 14:15-0400Body xhmyip794.26 Aniya Salazar Other [email or web address] Other 10-02-2021 14:15-0400Body mass index (BMI) [Ratio] 35.44 kg/z2Eiasanstone Salazar Other [employer] Other 10-02-2021 14:15-0400Body oeqmssqkjvj67.8 [degF]Nathalia Salazar Other [facility] [employer] Other 10-02-2021 14:15-0400Body xhmyur710.86 kgNathalia Salazar Other [facility] [employer] Other 10-02-2021 14:15-5796ObP7% (BldA) [Mass fraction]97 % Nathalia Salazar Other [facility] [employer] Other Encounters Encounter DateEncounter TypeCare ProviderFacilityStart: 02-17-2025 End: 90-82-1372hlhmmlnamsUltx L SchwabFacility:FT FM BellevueStart: 10-27-2024 End: 78-83-9985lmpmdnecclHutu L SchwabFacility:[facility] [place]vueStart: 08-19-2024 End: 64-44-2187dxvpwuujqhGubn L SchwabFacility:FT FM BellevueStart: 08-12-2024 End: 29-61-0157btatcwzwkvIZLIWO A LEHMANNFacility:FT FM BellevueStart: 03-15-2024 End: 86-07-3070opkrwlioszGcqn L SchwabFacility:FT FM BellevueStart: 04-24-2023 End: 76-40-2815ghtszpzjhoCsedgcjt [place] Other [facility] [employer] Other Start: 76-05-6825Yewttb outpatient visit 25 minutes [facility]alyani [facility]za [facility] ClydeStart: 06-01-2022 End: 40-46-7041kinhpaagkkJO CHARLES HOUSEFacility:U2Hemkk: 03-26-2022 End: 53-18-8923anesrngoklELNadiya GERMAINFacility:O7Ncugc: 04-22-2021 End: 59-84-6586gslnaxdapiJzhswm Taylor Other [facility] easy[employer]map Other Start: 75-78-4451Txduvv outpatient visit 15 minutes Ginger GardnerFPG Urgent Care Neel RoadStart: 61-90-3729Okqxai outpatient visit 15 minutesNathalia SalazarFPG Urgent Care Branden Dawson DatePayer CategoryPayerPolicy [id number] 2.16.840.1.725770.3.57[id number] 2.16.840.1.551953.3.57[id number] 2..840.1.975507.3.57[id number] 2.16.840.1.618213.3.57[id number] 2..840.1.648253.3.579.2.05616-78-3274EfcgLovelace Women's [id number] [id number] Social History DateTypeDetailFacilityUnknown if ever [email or web address] Other Sex Assigned At BirthSex Assigned At [facility] [email or web address] Other Clinical Note 08-12-2024 Note Date & ExkqVnzeGrzlemym06-74-5547 NotePatient Education Infectious Disease Pharyngitis Pharyngitis is a sore throat (pharynx). This is when there is redness, pain, and swelling in your throat. Most of the time, this condition gets better on its own. In some cases, you may need medicine. What are the causes? An infection from a virus. ??? An infection from bacteria. ??? Allergies. What increases the risk? Being 5?24 years old. ??? Being in crowded environments. These include: ? Daycares. ? Schools. ? Dormitories. ??? Living in a place with cold temperatures outside. ??? Having a weakened disease-fighting (immune) system. What are the signs or symptoms? Symptoms may vary depending on the cause. Common symptoms include: ??? Sore throat. ??? Tiredness (fatigue). ??? Low-grade fever. ??? Stuffy nose. ??? Cough. ??? Headache. Other symptoms may include: ??? Glands in the neck (lymph nodes) that are swollen. ??? Skin rashes. ??? Film on the throat or tonsils. This can be caused by an infection from bacteria. ??? Vomiting. ??? Red, itchy eyes. ??? Loss of appetite. ??? Joint pain and muscle aches. ??? Tonsils that are temporarily bigger than usual (enlarged). How is this treated? Many times, treatment is not needed. This condition usually gets better in 3?4 days without treatment. If the infection is caused by a bacteria, you may be need to take antibiotics. Follow these instructions at home: Medicines ??? Take [id number] and prescription medicines only as told by your doctor. ??? If you were prescribed an antibiotic medicine, take it as told by your doctor. Do not stop taking the antibiotic even if you start to feel better. ??? Use throat lozenges or sprays to soothe your throat as told by your doctor. ??? Children can get pharyngitis. Do not give your child aspirin. Managing pain To help with pain, try: ??? Sipping warm liquids, such as: ? Broth. ? Herbal tea. ? Warm water. ??? Eating or drinking cold or frozen liquids, such as frozen ice pops. ??? Rinsing your mouth (gargle) with a salt water mixture 3?4 times a day or as needed. ? To make salt water, dissolve ??1 tsp (3?6 g) of salt in 1 cup (237 mL) of warm water. ? Do not swallow this mixture. ??? Sucking on hard candy or throat lozenges. ??? Putting a cool-mist humidifier in your bedroom at night to moisten the air. ??? Sitting in the bathroom with the door closed for 5?10 minutes while you run hot water in the shower. General instructions ??? Do not smoke or use any products that contain nicotine or tobacco. If you need help quitting, ask your doctor. ??? Rest as told by your doctor. ??? Drink enough fluid to keep your pee (urine) pale yellow. How is this prevented? Wash your hands often for at least 20 seconds with soap and water. If soap and water are not available, use hand [employer]. ??? Do not touch your eyes, nose, or mouth with unwashed hands. Wash hands after touching these areas. ??? Do not share cups or eating utensils. ??? Avoid close contact with people who are sick. Contact a doctor if: ??? You have large, tender lumps in your neck. ??? You have a rash. ??? You cough up green, yellow-brown, or bloody spit. Get help right away if: ??? You have a stiff neck. ??? You drool or cannot swallow liquids. ??? You cannot drink or take medicines without vomiting. ??? You have very bad pain that does not go away with medicine. ??? You have problems breathing, and it is not from a stuffy nose. ??? You have new pain and swelling in your knees, ankles, wrists, or elbows. These symptoms may be an emergency. Get help right away. Call your local emergency services ([address] [facility] [place] ??? Do not wait to see if the symptoms will go away. ??? Do not drive yourself to the hospital. Summary ??? Pharyngitis is a sore throat (pharynx). This is when there is redness, pain, and swelling in your throat. ??? Most of the time, pharyngitis gets better on its own. Sometimes, you may need medicine. ??? If you were prescribed an antibiotic medicine, take it as told by your doctor. Do not stop taking the antibiotic even if you start to feel better. This information is not intended to replace advice given to you by your health care provider. Make sure you discuss any questions you have with your health care provider. Document Revised: 08/08/2021 Document Reviewed: 08/08/2021 [employer] Patient Education ? 2023 [employer] [facility] 04-24-2023 Note Date & [id number] Evaluation note* Encounter Date Diagnosis Assessment Notes Treatment Notes Treatment Clinical Notes Mar, Viral upper respiratory illness (ICD-10 - J06.9) Illness appears to be viral in nature. Instructed patient to increase fluid intake and rest. OTC Flonase per label instructions. May OTC cold medication per label instructions. Follow up with PCP if symptoms do not improve or worsen. All questions and concerns addressed. [employer] Other Evaluation note 04-22-2021 Note Date & [id number] Evaluation note* Encounter Date Diagnosis Assessment Notes Treatment Notes Treatment Clinical Notes Mar, Contact with and (larson spected) exposure to other viral communicable diseases (ICD-10 - Z20.828) covid pos, see above. Mar,OVID (ICD-10 - U07.1) Covid test pos in [...] Pt understood and agreed to tx plan. Mar,Other Additional time spent conducting pre-visit phone call, screening for symptoms, instructions on social distancing, application and removal of PPE, and cleaning of examination room, equipment and supplies was preformed. Patient education given for testing methodology and results. Patient care instructions given in writting by [employer] [facility] document. [employer] Other Evaluation note 02-24-2021 Note Date & [id number] Evaluation note* Encounter Date Diagnosis Assessment Notes Treatment Notes Treatment Clinical Notes Feb, Contact with and (larson spected) exposure to other viral communicable diseases (ICD-10 - Z20.828) Feb,ronchitis (ICD-10 - J40) Drink plenty fluids, get plenty of rest. Take the prednisone as prescribed until gone. Use the albuterol inhaler as prescribed as needed for cough or shortness of breath. Follow-up with your family physician if no improvement in 2 to 3 days Feb,ore throat (ICD-10 - J02.9) Feb,Viral upper respiratory illness (ICD-10 - J06.9) Feb,Other Additional time spent conducting pre-visit phone call, screening for symptoms, instructions on social distancing, application and removal of PPE, and cleaning of examination room, equipment and supplies was preformed. Patient education given for testing methodology and results. Patient care instructions given in writting by [employer] [facility] document. [employer] Other History general Narrative - Reported Note Date & TypeNoteFacilityHistory general Narrative - Reported* Type Description Date Medical History anxiety [employer] Other Summary Purpose Family History No Family History Records FoundNo Family History Records FoundNo Family History Records Found Advance Directives No Advanced Directives Records FoundNo Advanced Directives Records FoundNo Advanced Directives Records Found Additional Source Comments INFORMATION SOURCE (unrecogn ized section and content) DATE CREATED AUTHOR 05/14/2021 [facility] DATE CREATED AUTHOR AUTHOR'S ORGANIZ ATION 06/04/2022 [facility] DATE CREATED AUTHOR AUTHOR'S ORGANIZ ATION 02/18/2025 [facility] REASON FOR VISIT (unrecogniz ed section and [...] BE BASED ON THE PRIMARY CLINICAL RECORDS. [facility] [employer] [facility]. provides no warranty or guarantee of the accuracy or completeness of information in this document.
[2025-03-21 08:28] LABS: Alanine Aminotransferase 81 U/L (16-63); Albumin Globulin Ratio 1.1; Albumin Level 3.9 g/dL (3.4-5.0); Alkaline Phosphatase 78 U/L (46-116); Anion Gap 13.4; Aspartate Amino Transferase 36 U/L (15-37); Blood Urea Nitrogen 11.0 mg/dL (7.0-18.0); Calcium 8.7 mg/dL (8.5-10.1); Carbon Dioxide 28.1 mmol/L (21.0-32.0); Chloride 102 mmol/L (98-107); Estimated GFR (African America >60 (>=60 mL/min/1.73m^2); Estimated GFR (Non-African Ame >60 (>=60 mL/min/1.73m^2); Globulin 3.5 g/dL; Glucose 94 mg/dL (74-106); Potassium 3.5 mmol/L (3.5-5.1); Sodium 140 mmol/L (136-145); Total Protein 7.4 g/dL (6.4-8.2)
--- NOTE | 2025-03-21 08:52 | ED_ITS ---
HPI - Chest Pain General Chief Complaint: Chest Pain Stated Complaint: CHEST PAIN & ANXIETY Time Seen by Provider: 03/21/25 07:40 Source: patient Mode of arrival: walk-in History of Present Illness HPI narrative: The patient is a 39-year-old male with history of smoking cigarettes mostly he said that 1 pack of cigarettes was will take him a week to finish he denies any other medical history. Presenting to the ER after he had some chest pain mostly in the left upper chest that was there for few seconds just before arrival by 20 minutes. Patient mentioned that he was just sitting was not doing anything of exertion And the patient mentioned that he had no similar presentation before he was anxious on arrival he mentioned that he feels flushed when the nurse at the bedside was drawing his blood The patient denies any difficulty breathing no fever chills no legs swelling or any other complaints Patient mentioned that he is active usually and use the stairs multiple times during the day with no difficulty breathing Related Data Home Medications ?Medication ?Instructions ?Recorded ?Confirmed No Known Home Medications 03/21/2502/24 Allergies Allergy/AdvReac Type Severity Reaction Status Date / Time sulfamethoxazole (From AdvReac Unknown Unknown Verified 03/21/25 07:35 Bactrim) trimethoprim (From Bactrim) AdvReac Unknown Unknown Verified 03/21/25 07:35 Review of Systems ROS Status of ROS 10 or more systems reviewed and unremark able except as noted in history and below PFSH PFSH Social History Little interest or pleasure in doing things: not at all Feeling down, depressed, or hopeless: not at all Exam Narrative Exam Narrative: Nurses notes and vital signs reviewed and patient is not hypoxic. General: Well-appearing and in no apparent distress. Skin: Warm, dry, no pallor noted. No rash. Head: Normocephalic, atraumatic. Neck: Supple, non-tender. Cardiovascular: Regular Rate and Rhythm without murmur, gallop or rub. Respiratory: No accessory muscle use or respiratory distress. Lungs are clear to auscultation, no wheezing, rales or rhonchi Chest Wall: no tenderness Back: No midline thoracic or lumbar vertebral tenderness. No CVA tenderness Musculoskeletal: normal ROM, no calf or popliteal tenderness, no lower extremity edema/swelling GI: Abdomen is soft, non-distended. Normal bowel sounds. No masses appreciated. No tenderness to palpation. No rebound, guarding, or rigidity noted. Neurological: A&O x4. No cranial nerve dysfunction observed. No truncal ataxia. Moves all extremities. Sensation intact. Psychiatric: Cooperative and interactive. Normal mood and affect. Constitutional Vital Signs, click to edit/add: Last Vital Signs Temp 98.0 F 03/21/25 07:35 Pulse 84 03/21/25 07:35 Resp 16 03/21/25 07:35 BP 130/99 H 03/21/25 07:35 Pulse Ox 100 03/21/25 07:35 O2 Del Method Room Air 03/21/25 07:35 Course Vital Signs Vital signs: Vital Signs Temperature 98.0 F 03/21/25 07:35 Pulse Rate 84 03/21/25 07:35 Respiratory Rate 16 03/21/25 07:35 Blood Pressure 130/99 H 03/21/25 07:35 Pulse Oximetry 100 03/21/25 07:35 Oxygen Delivery Method Room Air 03/21/25 07:35 Temperature 98.0 F 03/21/25 07:35 Pulse Rate 84 03/21/25 07:35 Respiratory Rate 16 03/21/25 07:35 Blood Pressure 130/99 H 03/21/25 07:35 Pulse Oximetry 100 03/21/25 07:35 Oxygen Delivery Method Room Air 03/21/25 07:35 MDM - Chest Pain MDM Narrative Medical decision making narrative: The patient EKG in the ER showing sinus rhythm with a heart rate of [address] elevation or depression CBC and chemistry showed no acute pathology with a negative troponin and a chest x-ray showing no acute pathology as well The patient does have risk factor of smoking cigarettes in addition to morbid obesity but right now he does not have any pain and the location as well as specification of the pain being in the left upper chest does not correlate with possibly a cardiac reason Second troponin is negative and the patient is pain-free I did explain to him that right now the pain is mostly atypical He still need to follow-up with his primary care for further evaluation in case of recurring pain the patient to come back to the ER The patient to follow-up with the primary care within 2 to 3 days and to come back to the ER in case of any worsening of the current symptoms or any new symptoms or concerns Lab Data Labs: Lab Results 03/21/25 03/21/25 Range/Units 07:50 09:10 WBC 6.1 (4.0-11.0) 10^3/uL RBC 4.68 L (4.70-6.10) 10^6/uL Hgb 14.2 (14.0-18.0) g/dL Hct 41.7 L (42.0-54.0) % MCV 89.1 (80.0-94.0) fL MCH 30.3 (25.9-34.0) pg MCHC 34.1 (29.9-35.2) g/dL RDW 11.7 (11.0-15.0) % Plt Count 277 (150-450) 10^3/uL MPV 9.8 (9.5-13.5) fL Neut % (Auto) 42.0 L (43.0-75.0) % Lymph % (Auto) 42.5 (20.5-60.0) % [place] % (Auto) 11.2 (1.7-12.0) % Eos % (Auto) 3.3 (0.9-7.0) % Baso % (Auto) 0.5 (0.2-2.0) % Neut # (Auto) 2.6 (1.4-6.5) 10^3/uL Lymph # (Auto) 2.6 (1.2-3.8) 10^3/uL [place] # (Auto) 0.7 (0.3-0.8) 10^3/uL Eos # (Auto) 0.2 (0.0-0.7) 10^3/uL Baso # (Auto) 0.0 (0.0-0.1) 10^3/uL Abs Immat Gran (auto) 0.03 (0.00-0.03) 10^3/uL Imm/Tot Granulo (auto) 0.5 (0.0-0.5) % Sodium 140 (136-145) mmol/L Potassium 3.5 (3.5-5.1) mmol/L Chloride 102 (98-107) mmol/L Carbon Dioxide 28.1 (21.0-32.0) mmol/L Anion Gap 13.4 BUN 11.0 (7.0-18.0) mg/dL Creatinine 0.90 (0.70-1.30) mg/dL Est GFR ( Amer) >60 (>=60 mL/min/1.73m^2) Est GFR (Non-Af Amer) >60 (>=60 mL/min/1.73m^2) BUN/Creatinine Ratio 12.2 Glucose 94 (74-106) mg/dL Calcium 8.7 (8.5-10.1) mg/dL Total Bilirubin 0.4 (0.2-1.0) mg/dL AST 36 (15-37) U/L ALT 81 H (16-63) U/L Alkaline Phosphatase 78 (46-116) U/L Troponin I High Sens 6.1 6.2 (4.0-76.1) pg/mL Total Protein 7.4 (6.4-8.2) g/dL Albumin 3.9 (3.4-5.0) g/dL Globulin 3.5 g/dL Albumin/Globulin Ratio 1.1 Discharge Plan Discharge Chief Complaint: Chest Pain Clinical Impression: Atypical chest pain Patient Disposition: Home, Self-Care Time of Disposition Decision: 08:54 Condition: Good Prescriptions / Home Meds: No Action No Known Home Medications Print Language: Sudanese Instructions: Noncardiac Chest Pain (ED), Chest Wall Pain (ED) Referrals: PANCHO SHER [Primary Care Provider, [facility]] - 1 week
== END 2025-03-21 10:14 | disposition home or self-care (01) ==
PROVIDERS: Emergency Provider Emergency Medicine; PCP Nurse Practitioner
DX: R07.89 Other chest pain (principal); F17.210 Nicotine dependence, cigarettes, uncomplicated; E66.01 Morbid (severe) obesity due to excess calories; Z68.36 Body mass index [BMI] 36.0-36.9, adult
CPT/HCPCS: 36415; 71045; 80053; 84484; 85025; 93005; 99284; 99285